=== PATIENT | female | born 1935 | race Caucasian/White ===

== ENCOUNTER 2016-07-30 08:00 | Outpatient (CLI) | payer MEDICARE, OTHER | END 2016-07-30 23:59 | DX: E78.5 Hyperlipidemia, unspecified (principal); D72.829 Elevated white blood cell count, unspecified; E03.9 Hypothyroidism, unspecified ==

== ENCOUNTER 2016-12-15 18:51 | Emergency (ER) | payer MEDICARE, OTHER ==
--- NOTE | 2016-12-15 20:25 | ED Physician Documentation ---
History of Present Illness - Stated complaint Stated Complaint: L LEG/ANKLE PX - Chief complaint Chief Complaint: Ext Problem - History obtained from History obtained from: Patient - History of Present Illness Timing: How many days ago (2) - Additonal information Additional information: 81-year-old female with history of hypertension has been taken off of her estrogen about 2 months ago. She has developed swelling in her left calf with some anterior redness starting about 2 days ago. She has the general swelling in her primary is concerned about a DVT. The patient is not had fever or chills she does have some pain across anterior calf. She does not have pain on the posterior portion of the calf or up the posterior thigh. Review of Systems Constitutional: reports: Fatigue. denies: Fever, Chills Cardiac: denies: Chest pain / pressure Respiratory: denies: Cough GI: denies: Abdominal Pain, Nausea, Vomiting : denies: Dysuria, Frequency Neurologic: reports: Headache PD PAST MEDICAL HISTORY - Past Medical History Cardiovascular: Hypertension Other Past Medical History: hypothyroid - Past Surgical History Past Surgical History: Yes General: Appendectomy /[employer] WHISKEY: Hysterectomy HEENT: Tonsil/Adenoidectomy - Present Medications Home Medications: Ambulatory Orders Medication Instructions Recorded Confirmed Amox/Clav 875/125 [Augmentin] 1 each PO Q12H #14 tablet 12/15/16 Aspirin [Aspirin EC] 81 mg PO DAILY 12/15/16 12/15/16 Folic Acid 0.4 mg PO DAILY 12/15/16 12/15/16 Hydrochlorothiazide 12.5 mg PO DAILY 12/15/16 12/15/16 Potassium Chloride 20 meq PO DAILY 12/15/16 12/15/16 Simvastatin 20 mg PO DAILY 12/15/16 12/15/16 Simvastatin [Zocor] 20 mg PO DAILY 12/15/16 12/15/16 Telmisartan [Micardis] 40 mg PO DAILY 12/15/16 12/15/16 Threonine [l-Threonine] 100 gm PO DAILY 12/15/16 12/15/16 - Allergies Allergies/Adverse Reactions: Allergies Allergy/AdvReac Type Severity Reaction Status Date / Time lisinopril Allergy Hives Verified 12/15/16 18:57 - Social History Does the pt smoke?: No Smoking Status: Never smoker Does the pt drink ETOH?: No Does the pt have substance abuse?: No PD ED PE NORMAL - Vitals Vital signs reviewed: Yes (Hypertensive) - General General: No acute distress, Well developed/nourished - HEENT HEENT: Atraumatic, PERRL - Respiratory Respiratory: No respiratory distress - Derm Derm: Normal color, Warm and dry - Extremities Extremities: No deformity, Other (There is swelling to the left calf and there is erythema anteriorly that is tender. It blanches easily. Consistent with cellulitis. There is no pain to the posterior calf or posterior thigh and the distal neurovascular components are intact.) - Neuro Neuro: No motor deficit, No sensory deficit - Psych Psych: Normal mood, Normal affect Results - Vitals Vitals: Vital Signs - 24 hr 12/15/16 18:55 Temperature 36.4 C L Heart Rate 54 L Respiratory 18 Rate Blood Pressure 148/77 H O2 Saturation 96 Oxygen O2 Source Room air - Rads (name of study) Duplex left veins Radiology: Prelim report reviewed (Impression: Negative for deep venous thrombosis in the left lower extremity.), EMP read indepedently, See rad report PD MEDICAL DECISION MAKING - ED course Complexity details: reviewed old records, reviewed results, re-evaluated patient , considered differential, d/w patient ED course: 81-year-old female with history of hypertension has swelling in the left calf with erythema consistent with cellulitis. She herself was concerned about DVT and ultrasound is without evidence of DVT. She is administered Rocephin 1 g IM and we will place her on some Augmentin. Departure - Departure Disposition: 01 Home, Self Care Clinical Impression: Cellulitis Qualifiers: Site of cellulitis: extremity Site of cellulitis of extremity: lower extremity Laterality: left Qualified Code(s): L03.116 - Cellulitis of left lower limb Instructions: ED Infec Skin Cellulitis Follow-Up: Diane Oakley PA-C [Primary Care Provider] - Prescriptions: Amox/Clav 875/125 [Augmentin] 1 each PO Q12H #14 tablet Comments: Today there is no evidence of blood clot in the calf on the left side. There is evidence of infection in the skin. Use a warm compress to encourage circulation to the area and take the antibiotic as prescribed. Our expectations are that the redness pain and swelling resolve over this week. If your pain redness and swelling increase this is a treatment failure and recent to return to the emergency department.
[2016-12-15] MEDS ORDERED: cefTRIAXone 1 GM VIAL IM STA (20:33)
[2016-12-15] MEDS ORDERED: LIDOCAINE 1% 2 ML VIAL ONE (20:40)
[2016-12-15] MEDS ORDERED: cefTRIAXone 1 GM VIAL ONE (20:40)
--- NOTE | 2016-12-15 21:21 | Ultrasound Preliminary Report ---
Exam: US Duplex Ext Veins Left IMPRESSION: Negative for deep venous thrombosis in left lower extremity. [facility] SITE ID: [id number]
--- NOTE | 2016-12-15 21:23 | Ultrasound Report ---
EXAM: LEFT LOWER EXTREMITY VENOUS ULTRASOUND EXAM DATE: 12/15/2016 09:12 PM. CLINICAL HISTORY: Calf swelling pain . COMPARISON: None. TECHNIQUE: Real-time sonographic vascular imaging was performed by the shoe repair supervisor through the lower extremity utilizing both color-flow and Doppler spectral analysis. Multiple financial service representative static annabella ges were saved for review. FINDINGS: Common Femoral Vein (CFV): Normal. CFV-GSV Junction: Normal. Profunda Femoral Vein (PFV): Normal. Femoral Vein (FV) Prox: Normal. Femoral Vein (FV) Mid: Normal. Femoral Vein (FV) Dist: Normal. Popliteal Vein: Normal. Posterior Tibial Veins: Normal. Peroneal Veins: Normal. Other: None. IMPRESSION: Negative for deep venous thrombosis in left lower extremity. [facility] Referring Provider Line: [phone] SITE ID: [id number]
[2016-12-15 21:52] VITALS: BP 110/70
== END 2016-12-15 21:50 | disposition home or self-care (01) ==
LOC: ED 18:51
DX: L03.116 Cellulitis of left lower limb (principal); I10 Essential (primary) hypertension; Z79.82 Long term (current) use of aspirin
CPT/HCPCS: 96372; 99282; 99283

== ENCOUNTER 2017-07-14 08:27 | Outpatient (CLI) | payer MEDICARE, OTHER ==
[2017-07-14 12:48] LABS: BASOPHILS % (AUTO) 0.4 %; EOSINOPHILS # (AUTO) 0.1 10^3/uL (0.0-0.7); EOSINOPHILS % (AUTO) 1.1 %; HGB - HEMOGLOBIN 13.2 g/dL (12.0-16.0); LYMPHOCYTES # (AUTO) 1.7 10^3/uL (1.5-3.5); LYMPHOCYTES % (AUTO) 14.1 %; MEAN CORPUSCULAR HEMOGLOBIN 27.7 pg (27.0-31.0); MEAN CORPUSCULAR HGB CONC 32.4 g/dL (32.0-36.0); MEAN CORPUSCULAR VOLUME 85.5 fL (81.0-99.0); MEAN PLATELET VOLUME 9.3 fL (7.9-10.8); MONOCYTES # (AUTO) 0.8 10^3/uL (0.0-1.0); MONOCYTES % (AUTO) 6.8 %; NEUTROPHILS # (AUTO) 9.3 10^3/uL (1.5-6.6); NEUTROPHILS % (AUTO) 77.6 %; PLT - PLATELET COUNT 305 10^3/uL (130-450); RED BLOOD COUNT 4.77 10^6/uL (4.20-5.40); RED CELL DISTRIBUTION WIDTH 13.9 % (12.0-15.0); WHITE BLOOD COUNT 11.9 x10^3/uL (4.8-10.8)
[2017-07-14 13:44] LABS: ALBUMIN 4.3 g/dL (3.2-5.5); ALBUMIN/GLOBULIN RATIO 1.3 (1.0-2.2); ALKALINE PHOSPHATASE 72 IU/L (42-121); ALT ALANINE AMINOTRANSFERASE 14 IU/L (10-60); AST ASPARTATE AMINOTRANSFERASE 20 IU/L (10-42); BILIRUBIN,TOTAL 0.5 mg/dL (0.2-1.0); BUN - BLOOD UREA NITROGEN 21 mg/dL (6-20); CALCIUM 9.8 mg/dL (8.5-10.3); CARBON DIOXIDE - CO2 28 mmol/L (21-32); CHLORIDE 101 mmol/L (101-111); CHOL/HDL RATIO 3.6 (<4.4); CHOLESTEROL 157 mg/dL; CREATININE 0.7 mg/dL (0.4-1.0); GFR - MDRD 80 (>89); GLUCOSE 101 mg/dL (70-100); HDL CHOLESTEROL 44 mg/dL; LDL CHOLESTEROL,CALCULATED 87 mg/dL; SODIUM 137 mmol/L (135-145); TOTAL PROTEIN 7.5 g/dL (6.7-8.2); VLDL CHOLESTEROL 26 mg/dL
[2017-07-14 13:57] LABS: HB2 TOTAL 14.6 g/dL; HEMOGLOBIN A1C 0.62 g/dL
== END 2017-07-14 08:28 | disposition home or self-care (01) ==
LOC: LAB.WCP 08:27
PROVIDERS: ATTEND Physician Assistant Medical
DX: I10 Essential (primary) hypertension (principal); R73.01 Impaired fasting glucose; E78.5 Hyperlipidemia, unspecified; E03.9 Hypothyroidism, unspecified
CPT/HCPCS: 36415; 80053; 80061; 83036; 83721; 84443; 85025

== ENCOUNTER 2017-08-03 10:45 | Outpatient (CLI) | payer MEDICARE, OTHER | END 2017-08-03 10:46 | disposition home or self-care (01) | LOC: DI 10:45 | PROVIDERS: ATTEND Physician Assistant Medical | DX: R01.1 Cardiac murmur, unspecified (principal); I51.7 Cardiomegaly; I27.20 Pulmonary hypertension, unspecified | CPT/HCPCS: 93306 ==

== ENCOUNTER 2017-10-20 14:35 | Outpatient (CLI) | END 2017-10-20 14:36 | disposition home or self-care (01) ==

== ENCOUNTER 2018-04-10 09:09 | Outpatient (CLI) | payer MEDICARE, OTHER | END 2018-04-10 09:10 | disposition critical access hospital (66) | LOC: EMS 09:09 | PROVIDERS: ATTEND Surgery | DX: M54.5 Low back pain (principal) | CPT/HCPCS: A0425; A0427 ==

== ENCOUNTER 2018-04-10 09:42 | Emergency (ER) | payer MEDICARE, OTHER ==
[2018-04-10] MEDS ORDERED: KETOROLAC 60 MG/2 ML VIAL IVP STA (09:53)
[2018-04-10] MEDS ORDERED: DEXAMETHASONE 10 MG/ML VIAL IVP STA (09:54)
--- NOTE | 2018-04-10 09:57 | ED Physician Documentation ---
PD HPI BACK PAIN - Stated complaint Stated Complaint: BACK PX - History obtained from History obtained from: Patient, Family - History of Present Illness Timing - onset: How many weeks ago (3) Timing - duration: Weeks (3) Timing - details: Gradual onset, Still present Location: Lower Quality: Pain, Spasm, Sharp, Similar to prior episodes Associated symptoms: No: Fever, Weakness, Numbness, Incontinent of urine, Unable to urinate, Incontinent of stool Improves with: Rest, Position, Meds Worsened by: Movement Similar symptoms before: No diagnosis Recently seen: Clinic - Additional information Additional information: 83-year old female has taken a car trip with her son from [place] about 3 weeks ago and is developed some back pain. She is started with a cane when she a rrived here she subsequently moved to a walker and now into a wheelchair. She has been into see the chiropractor yesterday in an attempt to get some type of improvement. She states that when she left the office she felt somewhat improved and awoke this morning in severe pain. She states that she tossed and turned at night trying to get into a comfortable position and this morning she was unable to get out of bed. She has pain with any movement. She denies any specific injury to the area or specific onset of the pain associated with any physical movement. Review of Systems Constitutional: denies: Fever Eyes: denies: Decreased vision Ears: denies: Ear pain Nose: denies: Congestion Throat: denies: Sore throat Cardiac: denies: Chest pain / pressure, Palpitations Respiratory: denies: Dyspnea, Cough GI: denies: Abdominal Pain, Nausea, Vomiting : denies: Dysuria, Frequency Skin: denies: Rash, Lesions Musculoskeletal: reports: Back pain. denies: Neck pain Neurologic: denies: Generalized weakness, Focal weakness, Numbness PD PAST MEDICAL HISTORY - Past Medical History Cardiovascular: Hypertension - Past Surgical History Past Surgical History: Yes General: Appendectomy /[employer] AND [employer]MER [employer]: Hysterectomy HEENT: Tonsil/Adenoidectomy - Present Medications Home Medications: Ambulatory Orders Medication Instructions Recorded Confirmed Aspirin [Aspirin EC] 81 mg PO DAILY 12/15/16 04/10/18 Folic Acid 0.4 mg PO DAILY 12/15/16 04/10/18 Hydrochlorothiazide 12.5 mg PO DAILY 12/15/16 04/10/18 Potassium Chloride 20 meq PO DAILY 12/15/16 04/10/18 Simvastatin 20 mg PO DAILY 12/15/16 04/10/18 Simvastatin [Zocor] 20 mg PO DAILY 12/15/16 04/10/18 Telmisartan [Micardis] 40 mg PO DAILY 12/15/16 04/10/18 Threonine [l-Threonine] 100 gm PO DAILY 12/15/16 04/10/18 Cyclobenzaprine [Flexeril] 10 mg PO TID PRN #20 tablet 04/10/18 Oxycodone HCl/Acetaminophen 1 - 2 each PO Q6H PRN #14 tablet 04/10/18 [Percocet 5-325 mg Tablet] traMADol [Ultram] 50 mg PO Q4-6H 04/10/18 04/10/18 - Allergies Allergies/Adverse Reactions: Allergies Allergy/AdvReac Type Severity Reaction Status Date / Time lisinopril Allergy Hives Verified 12/15/16 18:57 - Social History Does the pt smoke?: No Smoking Status: Never smoker Does the pt drink ETOH?: No Does the pt have substance abuse?: No PD ED PE NORMAL - Vitals Vital signs reviewed: Yes - General General: Alert and oriented X 3, Well developed/nourished, Other (appears to be in pain with any movement. ) - HEENT HEENT: Atraumatic, PERRL, EOMI - Neck Neck: Supple, no meningeal sign - Respiratory Respiratory: No respiratory distress - Back Back: No CVA TTP, Other (There is central pain to palpation of the lower lumbar spine area and less pain to palpation of the paraspinous muscles. ) - Derm Derm: Normal color, Warm and dry, No rash - Extremities Extremities: No deformity, No edema - Neuro Neuro: Alert and oriented X 3, cold rolling supervisor 2-12 intact, No motor deficit, No sensory deficit, Normal speech Eye Opening: Spontaneous Motor: Obeys Commands Verbal: Oriented GCS Score: 15 - Psych Psych: Normal mood, Normal affect Results - Vitals Vitals: Vital Signs - 24 hr 04/10/18 04/10/18 09:43 10:30 Temperature 35.9 C L Heart Rate 51 L 47 L Respiratory 20 16 Rate Blood Pressure 164/94 H 151/67 H O2 Saturation 93 93 Oxygen O2 Source Nasal cannula Oxygen Flow Rate 1 - Labs Labs: Laboratory Tests 04/10/18 10:35 Urine Color YELLOW Urine Clarity CLEAR Urine pH 7.0 Ur Specific [place] 1.010 Urine Protein NEGATIVE Urine Glucose (UA) NEGATIVE Urine Ketones NEGATIVE Urine Occult Blood NEGATIVE Urine Nitrite NEGATIVE Urine Bilirubin NEGATIVE Urine Urobilinogen 0.2 (NORMAL) Ur Leukocyte Esterase NEGATIVE Ur Microscopic Review NOT INDICATED Urine Culture Comments NOT INDICATED - Rads (name of study) lumbar spine x-ray Radiology: Prelim report reviewed (Impression: 1. Grade 1 anterolisthesis at L4-L5 has not significantly changed.2. No fracture demonstrated by radiography. 3. Multilevel degenerative changes, greatest at the lower lumbar spine.), EMP read indepedently, See rad report PD MEDICAL DECISION MAKING - ED course Complexity details: reviewed old records, reviewed results, re-evaluated patient, considered differential, d/w patient, d/w family ED course: 83-year-old female with a history of hypertension and chronic back pain has taken a recent car trip from [place] to [facility] and she has now persistent severe pain that is progressively worsened. She has significant pain if she is moving around at all. She was seen by the chiropractor yesterday and her pain is worse this morning. On my initial evaluation my concern was for the possibility of compression fracture and repeat x-ray of her lumbar spine was undertaken which did not demonstrate any evidence of compression fracture, she does have fair bone density, but she does have anterolisthesis of L4-5. This is unchanged. She is treated here in the emergency department with dexamethasone and Toradol. This is inadequate for pain relief and she is administered Dilaudid with some improvement. She has been prescribed tramadol for the pain relief and I believe this is inadequate. She will need physical therapy and time. Departure - Departure Disposition: 01 Home, Self Care Clinical Impression: Lumbar strain Qualifiers: Encounter type: initial encounter Qualified Code(s): S39.012A - Strain of muscle, fascia and tendon of lower back, initial encounter Condition: Stable Instructions: ED Sprain Strain Lumbar, ED Spasm Back No Trauma Follow-Up: Diane Oakley PA-C [Primary Care Provider] - Prescriptions: Cyclobenzaprine [Flexeril] 10 mg PO TID PRN #20 tablet PRN Reason: Spasms Oxycodone HCl/Acetaminophen [Percocet 5-325 mg Tablet] 1 - 2 each PO Q6H PRN #14 tablet PRN Reason: pain
[2018-04-10 10:56] LABS: BILIRUBIN,URINE NEGATIVE (NEGATIVE); GLUCOSE, URINE (UA) NEGATIVE (NEGATIVE); KETONES,URINE (UA) NEGATIVE (NEGATIVE); LEUKOCYTE ESTERASE, URINE NEGATIVE (NEGATIVE); NITRITE,URINE NEGATIVE (NEGATIVE); OCCULT BLOOD,URINE NEGATIVE (NEGATIVE); PROTEIN,URINE NEGATIVE (NEGATIVE); UROBILINOGEN,URINE 0.2 (NORMAL) E.U./dL (NORMAL)
[2018-04-10 10:57] LABS: CLARITY,URINE CLEAR (CLEAR)
[2018-04-10] MEDS ORDERED: HYDROmorphone 1 MG/ML CARPUJECT IVP STA (11:19)
[2018-04-10] MEDS ORDERED: ONDANSETRON 4 MG/2 ML VIAL IVP STA (11:19)
--- NOTE | 2018-04-10 11:52 | XRAY Report ---
Reason: worsened lower lumbar pain Procedure Date: 04/10/2018 Accession Number: [id number] / [id number] Procedure: XR - Lumbar Spine 2 View CPT Code: FULL RESULT: EXAM: LUMBOSACRAL SPINE RADIOGRAPHY EXAM DATE: 04/10/2018 11:03 AM. CLINICAL HISTORY: Worsened lower lumbar pain. COMPARISONS: Lumbar spine radiographs from 03/24/2018. TECHNIQUE: 3 views. FINDINGS: Alignment: There is mild apex right curvature of the lumbar spine. There is approximately 9 mm, grade 1 anterolisthesis at L4-L5, which is not significantly changed. Partial visualization of right hip prosthesis. Bones: Five [id number] lumbar vertebral bodies are present. No acute fracture. Disks: Severe disk height loss at L5-S1 with endplate sclerosis. Mild-moderate disk height loss at L2-L3, L3-L4, and L4-L5. Facets: Severe bilateral facet degeneration at L4-L5 and L5-S1. Sacroiliac Joints: Alignment is within normal limits. Soft Tissues: The visualized bowel gas pattern is unremarkable. Faint aortic calcifications demonstrated. IMPRESSION: 1. Grade 1 anterolisthesis at L4-L5 has not significantly changed. 2. No acute fracture demonstrated by radiography. 3. Multilevel degenerative changes, greatest in the lower lumbar spine. [facility]
[2018-04-10 12:38] VITALS: BP 153/92
== END 2018-04-10 12:45 | disposition home or self-care (01) ==
LOC: EDUNIT# → ED 09:42
DX: S39.012A Strain of muscle, fascia and tendon of lower back, initial encounter (principal); X58.XXXA Exposure to other specified factors, initial encounter; M43.16 Spondylolisthesis, lumbar region; G89.29 Other chronic pain; M54.9 Dorsalgia, unspecified; I10 Essential (primary) hypertension; Z79.82 Long term (current) use of aspirin
CPT/HCPCS: 72100; 81003; 96374; 96375; 99283; 99284; J1170; 81001; 87086

== ENCOUNTER 2018-04-24 08:00 | Outpatient (CLI) | payer MEDICARE, OTHER ==
[2018-04-24 12:53] LABS: BASOPHILS # (AUTO) 0.1 10^3/uL (0.0-0.1); BASOPHILS % (AUTO) 0.4 %; EOSINOPHILS # (AUTO) 0.1 10^3/uL (0.0-0.7); EOSINOPHILS % (AUTO) 0.9 %; HGB - HEMOGLOBIN 15.1 g/dL (12.0-16.0); LYMPHOCYTES % (AUTO) 13.1 %; MEAN CORPUSCULAR HEMOGLOBIN 27.6 pg (27.0-31.0); MEAN CORPUSCULAR HGB CONC 32.7 g/dL (32.0-36.0); MEAN CORPUSCULAR VOLUME 84.4 fL (81.0-99.0); MEAN PLATELET VOLUME 9.9 fL (7.9-10.8); MONOCYTES # (AUTO) 0.7 10^3/uL (0.0-1.0); MONOCYTES % (AUTO) 4.6 %; NEUTROPHILS # (AUTO) 12.3 10^3/uL (1.5-6.6); PLT - PLATELET COUNT 318 10^3/uL (130-450); RED BLOOD COUNT 5.47 10^6/uL (4.20-5.40); RED CELL DISTRIBUTION WIDTH 14.9 % (12.0-15.0); WHITE BLOOD COUNT 15.2 x10^3/uL (4.8-10.8)
[2018-04-24 13:14] LABS: ALBUMIN 4.4 g/dL (3.2-5.5); ALBUMIN/GLOBULIN RATIO 1.3 (1.0-2.2); ALKALINE PHOSPHATASE 91 IU/L (42-121); ALT ALANINE AMINOTRANSFERASE 10 IU/L (10-60); AST ASPARTATE AMINOTRANSFERASE 19 IU/L (10-42); BILIRUBIN,TOTAL 0.4 mg/dL (0.2-1.0); BUN - BLOOD UREA NITROGEN 14 mg/dL (6-20); CALCIUM 10.3 mg/dL (8.5-10.3); CARBON DIOXIDE - CO2 30 mmol/L (21-32); CHLORIDE 102 mmol/L (101-111); CHOL/HDL RATIO 2.9 (<4.4); CHOLESTEROL 174 mg/dL; CREATININE 0.7 mg/dL (0.4-1.0); GFR - MDRD 80 (>89); GLUCOSE 100 mg/dL (70-100); HDL CHOLESTEROL 60 mg/dL; LDL CHOLESTEROL,CALCULATED 94 mg/dL; LDL/HDL RATIO 1.6 (<4.4); SODIUM 142 mmol/L (135-145); TOTAL PROTEIN 7.9 g/dL (6.7-8.2); VLDL CHOLESTEROL 20 mg/dL
== END 2018-04-24 23:59 | disposition home or self-care (01) ==
LOC: LAB.WCP 08:00
PROVIDERS: ATTEND Physician Assistant Medical
DX: E78.5 Hyperlipidemia, unspecified (principal); D72.829 Elevated white blood cell count, unspecified
CPT/HCPCS: 36415; 80053; 80061; 83721; 85025

== ENCOUNTER 2018-09-08 08:01 | Outpatient (CLI) | payer MEDICARE, OTHER ==
[2018-09-08 12:51] LABS: BASOPHILS # (AUTO) 0.1 10^3/uL (0.0-0.1); BASOPHILS % (AUTO) 0.6 %; EOSINOPHILS # (AUTO) 0.1 10^3/uL (0.0-0.7); EOSINOPHILS % (AUTO) 1.3 %; HGB - HEMOGLOBIN 13.8 g/dL (12.0-16.0); LYMPHOCYTES # (AUTO) 1.9 10^3/uL (1.5-3.5); LYMPHOCYTES % (AUTO) 15.7 %; MEAN CORPUSCULAR HEMOGLOBIN 27.8 pg (27.0-31.0); MEAN CORPUSCULAR VOLUME 86.6 fL (81.0-99.0); MEAN PLATELET VOLUME 9.7 fL (7.9-10.8); MONOCYTES # (AUTO) 0.7 10^3/uL (0.0-1.0); MONOCYTES % (AUTO) 6.1 %; NEUTROPHILS % (AUTO) 76.3 %; PLT - PLATELET COUNT 322 10^3/uL (130-450); RED BLOOD COUNT 4.97 10^6/uL (4.20-5.40); RED CELL DISTRIBUTION WIDTH 13.7 % (12.0-15.0); WHITE BLOOD COUNT 11.8 x10^3/uL (4.8-10.8)
[2018-09-08 13:36] LABS: ALBUMIN 4.1 g/dL (3.2-5.5); ALBUMIN/GLOBULIN RATIO 1.2 (1.0-2.2); ALKALINE PHOSPHATASE 75 IU/L (42-121); ALT ALANINE AMINOTRANSFERASE 10 IU/L (10-60); AST ASPARTATE AMINOTRANSFERASE 19 IU/L (10-42); BILIRUBIN,TOTAL 0.5 mg/dL (0.2-1.0); BUN - BLOOD UREA NITROGEN 19 mg/dL (6-20); CALCIUM 10.4 mg/dL (8.5-10.3); CARBON DIOXIDE - CO2 32 mmol/L (21-32); CHLORIDE 105 mmol/L (101-111); CHOL/HDL RATIO 3.9 (<4.4); CHOLESTEROL 168 mg/dL; CREATININE 0.9 mg/dL (0.4-1.0); GFR - MDRD 60 (>89); GLUCOSE 107 mg/dL (70-100); HDL CHOLESTEROL 43 mg/dL; LDL CHOLESTEROL,CALCULATED 101 mg/dL; LDL/HDL RATIO 2.3 (<4.4); SODIUM 143 mmol/L (135-145); TOTAL PROTEIN 7.5 g/dL (6.7-8.2); VLDL CHOLESTEROL 24 mg/dL
== END 2018-09-08 08:02 | disposition home or self-care (01) ==
LOC: LAB.WCP 08:01
PROVIDERS: ATTEND Physician Assistant Medical
DX: E78.5 Hyperlipidemia, unspecified (principal); E03.9 Hypothyroidism, unspecified; D72.829 Elevated white blood cell count, unspecified
CPT/HCPCS: 36415; 80053; 80061; 83721; 84443; 85025

== ENCOUNTER 2018-12-07 14:59 | Outpatient (CLI) | payer MEDICARE, OTHER ==
--- NOTE | 2018-12-08 16:30 | Mammography Report ---
Reason: SCREENING MAMMO Procedure Date: 12/07/2018 Accession Number: [id number] / [id number] Procedure: ARISTEO - Screening Mammo w/Jason CPT Code: FULL RESULT: EXAM: Screening Mammo w/Jason DATE: 12/07/2018 3:44 PM CLINICAL HISTORY: Screening encounter. TECHNIQUE: (B) - Bilateral CC and MLO views were obtained. Left laterally exaggerated CC views obtained. COMPARISON: 10/20/2017 through 06/19/2011. PARENCHYMAL PATTERN: (A) - The breast(s) demonstrate(s) scattered fibroglandular densities. FINDINGS: There are no suspicious masses, calcifications, or areas of distortion. IMPRESSION: Negative examination. BI-RADS category 1. RECOMMENDATION: (ANNUAL) - Recommend routine annual screening mammography. BI-RADS CATEGORY: (1) - Negative. STANDARD QUALIFYING STATEMENTS: 1. This examination was not reviewed with the aid of Computer-Aided Detection (CAD). 2. A negative or benign imaging report should not preclude biopsy if clinically suspicious findings are present. 3. Dense breasts may obscure an underlying neoplasm. 4. This examination was reviewed with the aid of 3D breast imaging (tomosynthesis).
== END 2018-12-07 15:00 | disposition home or self-care (01) ==
LOC: DI 14:59
DX: Z12.31 Encounter for screening mammogram for malignant neoplasm of breast (principal)
CPT/HCPCS: 77063; 77067

== ENCOUNTER 2019-03-02 09:18 | Outpatient (CLI) | payer MEDICARE, OTHER | END 2019-03-02 09:19 | disposition home or self-care (01) | LOC: RT 09:18 | PROVIDERS: ATTEND Physician Assistant Surgical | DX: Z01.810 Encounter for preprocedural cardiovascular examination (principal); M16.12 Unilateral primary osteoarthritis, left hip | CPT/HCPCS: 93005 ==

== ENCOUNTER 2019-05-20 10:20 | Outpatient (CLI) | payer MEDICARE, OTHER ==
[2019-05-20 12:10] LABS: BASOPHILS % (AUTO) 0.3 %; EOSINOPHILS # (AUTO) 0.1 10^3/uL (0.0-0.7); EOSINOPHILS % (AUTO) 0.6 %; HGB - HEMOGLOBIN 12.6 g/dL (12.0-16.0); LYMPHOCYTES # (AUTO) 1.1 10^3/uL (1.5-3.5); MEAN CORPUSCULAR VOLUME 87.3 fL (81.0-99.0); MEAN PLATELET VOLUME 10.8 fL (7.9-10.8); MONOCYTES # (AUTO) 0.8 10^3/uL (0.0-1.0); MONOCYTES % (AUTO) 5.6 %; NEUTROPHILS % (AUTO) 84.9 %; PLT - PLATELET COUNT 457 10^3/uL (130-450); RED BLOOD COUNT 4.66 10^6/uL (4.20-5.40); RED CELL DISTRIBUTION WIDTH 13.4 % (12.0-15.0); WHITE BLOOD COUNT 14.1 x10^3/uL (4.8-10.8)
[2019-05-20 12:35] LABS: ALBUMIN 3.7 g/dL (3.2-5.5); ALKALINE PHOSPHATASE 76 IU/L (42-121); ALT ALANINE AMINOTRANSFERASE < 10 IU/L (10-60); AST ASPARTATE AMINOTRANSFERASE 15 IU/L (10-42); BILIRUBIN,TOTAL 0.5 mg/dL (0.2-1.0); BUN - BLOOD UREA NITROGEN 12 mg/dL (6-20); CALCIUM 9.6 mg/dL (8.5-10.3); CARBON DIOXIDE - CO2 27 mmol/L (21-32); CHLORIDE 101 mmol/L (101-111); CHOL/HDL RATIO 3.8 (<4.4); CHOLESTEROL 161 mg/dL; CREATININE 0.6 mg/dL (0.4-1.0); GFR - MDRD 95 (>89); GLUCOSE 103 mg/dL (70-100); HDL CHOLESTEROL 42 mg/dL; LDL CHOLESTEROL,CALCULATED 100 mg/dL; LDL/HDL RATIO 2.4 (<4.4); SODIUM 138 mmol/L (135-145); TOTAL PROTEIN 7.4 g/dL (6.7-8.2); VLDL CHOLESTEROL 19 mg/dL
[2019-05-20 12:36] LABS: CRP - C-REACTIVE PROTEIN 6.3 mg/dL (0-1.0)
[2019-05-20 19:08] LABS: RHEUMATOID FACTOR NEGATIVE (Negative)
== END 2019-05-20 23:59 | disposition home or self-care (01) ==
LOC: LAB.WCP 10:20
PROVIDERS: ATTEND Family Medicine
DX: M25.50 Pain in unspecified joint (principal); E78.5 Hyperlipidemia, unspecified; D72.829 Elevated white blood cell count, unspecified
CPT/HCPCS: 36415; 80053; 80061; 83721; 84550; 85025; 85027; 85651; 86038; 86140; 86200; 86430

== ENCOUNTER 2019-10-12 14:50 | Outpatient (CLI) | payer MEDICARE, OTHER ==
[2019-10-12 18:36] LABS: BASOPHILS # (AUTO) 0.1 10^3/uL (0.0-0.1); BASOPHILS % (AUTO) 0.5 %; EOSINOPHILS # (AUTO) 0.1 10^3/uL (0.0-0.7); EOSINOPHILS % (AUTO) 0.7 %; HGB - HEMOGLOBIN 14.1 g/dL (12.0-16.0); LYMPHOCYTES # (AUTO) 2.4 10^3/uL (1.5-3.5); LYMPHOCYTES % (AUTO) 15.9 %; MEAN CORPUSCULAR HEMOGLOBIN 27.1 pg (27.0-31.0); MEAN CORPUSCULAR HGB CONC 31.3 g/dL (32.0-36.0); MEAN CORPUSCULAR VOLUME 86.4 fL (81.0-99.0); MEAN PLATELET VOLUME 11.9 fL (7.9-10.8); MONOCYTES # (AUTO) 0.9 10^3/uL (0.0-1.0); MONOCYTES % (AUTO) 5.8 %; NEUTROPHILS # (AUTO) 11.7 10^3/uL (1.5-6.6); NEUTROPHILS % (AUTO) 76.6 %; PLT - PLATELET COUNT 339 10^3/uL (130-450); RED BLOOD COUNT 5.21 10^6/uL (4.20-5.40); RED CELL DISTRIBUTION WIDTH 14.3 % (12.0-15.0); WHITE BLOOD COUNT 15.2 x10^3/uL (4.8-10.8)
== END 2019-10-12 23:59 | disposition home or self-care (01) ==
LOC: LAB.WCP 14:50
PROVIDERS: ATTEND Physician Assistant Medical
DX: E03.9 Hypothyroidism, unspecified (principal); D72.829 Elevated white blood cell count, unspecified
CPT/HCPCS: 36415; 84443; 85025

== ENCOUNTER 2020-03-09 12:09 | Day surgery (SDC) | payer MEDICARE, OTHER ==
[2020-03-09] MEDS ORDERED: MIDAZOLAM 2 MG/2 ML VIAL IVP ONE (12:10)
[2020-03-09] MEDS ORDERED: fentaNYL 250 MCG/5 ML VIAL IVP ONE (12:10)
[2020-03-09] MEDS ORDERED: LACTATED RINGERS 1,000 ML IV ONE ×2 (12:27→14:11)
[2020-03-09] MEDS ORDERED: LIDOCAINE 1% 50 ML MDV ONE (13:10)
[2020-03-09] MEDS ORDERED: IOVERSOL 320 100 ML VIAL IVP ONE ×2 (14:24→17:19)
[2020-03-09 14:55] VITALS: BP 144/74
[2020-03-09 15:15] LABS: BASOPHILS # (AUTO) 0.1 10^3/uL (0.0-0.1); BASOPHILS % (AUTO) 0.4 %; EOSINOPHILS % (AUTO) 0.1 %; HGB - HEMOGLOBIN 15.1 g/dL (12.0-16.0); LYMPHOCYTES # (AUTO) 1.5 10^3/uL (1.5-3.5); LYMPHOCYTES % (AUTO) 9.8 %; MEAN CORPUSCULAR HEMOGLOBIN 28.1 pg (27.0-31.0); MEAN CORPUSCULAR HGB CONC 32.3 g/dL (32.0-36.0); MEAN PLATELET VOLUME 10.9 fL (7.9-10.8); MONOCYTES # (AUTO) 0.7 10^3/uL (0.0-1.0); MONOCYTES % (AUTO) 4.5 %; NEUTROPHILS # (AUTO) 13.3 10^3/uL (1.5-6.6); NEUTROPHILS % (AUTO) 84.7 %; PLT - PLATELET COUNT 328 10^3/uL (130-450); RED BLOOD COUNT 5.37 10^6/uL (4.20-5.40); RED CELL DISTRIBUTION WIDTH 13.2 % (12.0-15.0); WHITE BLOOD COUNT 15.7 x10^3/uL (4.8-10.8)
[2020-03-09 15:30] LABS: ALBUMIN 4.5 g/dL (3.2-5.5); ALBUMIN/GLOBULIN RATIO 1.3 (1.0-2.2); BILIRUBIN,TOTAL 0.7 mg/dL (0.2-1.0); CALCIUM 10.3 mg/dL (8.5-10.3); CREATININE 0.9 mg/dL (0.4-1.0); TOTAL PROTEIN 7.9 g/dL (6.7-8.2)
--- NOTE | 2020-03-09 16:20 | CT Report ---
PROCEDURE: Abdomen/Pelvis W INDICATIONS: Rectosigmoid mass CONTRAST: IV CONTRAST: Optiray 320 ml: 100 PO CONTRAST: *NO PO CONTRAST TECHNIQUE: After the administration of IV and no oral contrast, 5 mm thick sections acquired from the diaphragms to the symphysis. 5 mm thick coronal and sagittal reformats were acquired. For radiation dose redu ction, the following was used: automated exposure control, adjustment of mA and/or kV according to p atient size. COMPARISON: None. FINDINGS: Image quality: Excellent. ABDOMEN: Lung bases: 13 mm subpleural nodule within the right lower lobe posterolaterally is present. Lung ba ses are otherwise clear. Heart size is normal. Solid organs: Liver and spleen are normal in size and enhancement. Gallbladder is within normal royal its Biliary system is non dilated. Pancreas enhances normally. No adrenal nodules. There is a righ t posterior interpolar renal cyst measuring 13 mm. Within the right posterior polar kidney anteriorly , there is a cortically based cyst measuring 10 mm, which demonstrates a possible central region of p unctate enhancement (series 3 image 47).. Kidneys demonstrate otherwise normal size and enhancement, without hydronephrosis. Peritoneum and bowel: There is a gas-filled diverticulum of the duodenal-jejunal junction measuring r oughly 60 mm. Bowel loops demonstrate otherwise normal wall thickness and caliber. No free fluid or air. Nodes and vessels: No retroperitoneal or mesenteric adenopathy by size criteria. Aorta and inferior vena cava are normal in size. Miscellaneous: 20 mm diameter fat containing umbilical hernia. No bowel loops within the hernia are p resent. PELVIS: Genitourinary: Bladder wall thickness is normal. Miscellaneous: No inguinal hernias or adenopathy. Bones: No suspicious bony lesions. Bilateral hip arthroplasty has been performed. No vertebral body compression fractures. IMPRESSION: 1. Indeterminate right lower lobe nodule. Initial further assessment with chest CT without contrast i s recommended. 2. Possibly enhancing small right renal lesion. Initial further assessment with ultrasound is recomme nded. Pre and postcontrast enhanced renal protocol CT may be helpful for further assessment as well. Reviewed by: Edgardo Taylor MD on 03/09/2020 4:18 PM PST Approved by: Edgardo Taylor MD on 03/09/2020 4:18 PM PST Station ID: [id number]
== END 2020-03-09 12:10 | disposition home or self-care (01) ==
LOC: SDS 12:09
PROVIDERS: ATTEND Surgery
PROC: 0DBN8ZX Excision of Sigmoid Colon, Via Natural or Artificial Opening Endoscopic, Diagnostic (ICD-10-PCS; principal; 2020-03-09 13:15)
DX: C19 Malignant neoplasm of rectosigmoid junction (principal); K64.8 Other hemorrhoids; I10 Essential (primary) hypertension
CPT/HCPCS: 36415; 45380; 74177; 80053; 82378; 85025; J3010; J7120; Q9967

== ENCOUNTER 2020-03-31 10:36 | Outpatient (CLI) | payer MEDICARE, OTHER ==
[2020-03-31] MEDS ORDERED: IOVERSOL 320 100 ML VIAL IVP ONE ×2 (10:49→11:32)
--- NOTE | 2020-03-31 16:36 | CT Report ---
PROCEDURE: CHEST W INDICATIONS: LUNG NODULE, COLON CANCER CONTRAST: IV CONTRAST: Optiray 320 ml: 80 PO CONTRAST: *NO PO CONTRAST TECHNIQUE: After the administration of intravenous contrast, 5 mm thick sections acquired from the pulmonary api shawn to the posterior costophrenic angles. 7 mm thick coronal MIP reformats were acquired. For radia tion dose reduction, the following was used: automated exposure control, adjustment of mA and/or kV according to patient size. COMPARISON: CT abdomen and pelvis dated 03/09/2020. FINDINGS: Image quality: Excellent. Lungs and pleura: 9 mm pulmonary nodule, the nodule seen on the previous CT, subpleural location, right lower lobe, annabella ge 170/4. Pleural-based nodule, minor fissure, right lung, image 147/4 and image 50/7, possibly representing a fissural lymph node. 4 mm pulmonary nodule, right lower lobe, image 215/4. 2 mm pulmonary nodule, posterior left upper lobe, image 61/4. 5 mm pulmonary nodule, left lower lobe, image 194/4. No acute air space opacities. No pleural effusions or pneumothorax. Central and peripheral airways are patent and normal in caliber. Mediastinum: Mild cardiomegaly with four-chamber enlargement. Mild coronary artery calcifications. No pericardial effusion. No mediastinal or hilar adenopathy by size criteria. Mild aneurysmal dilatati on of the ascending aorta, measuring 4.1 cm. Esophagus is normal in caliber. No hiatal hernia. Bones and chest wall: No suspicious bony lesions. No vertebral body compression fractures. No axil artur or supraclavicular adenopathy by size criteria. Thyroid gland is mildly heterogeneous. Abdomen: Visualized upper abdominal solid organs appear normal. Upper abdominal bowel loops are nor mal in caliber. IMPRESSION: 1. 5 nodular densities are seen in the lungs. For of these nodules are less than or equal to 5 mm. Th ere are of uncertain etiology. These can be evaluated on future imaging studies for change in size. T hey do not necessarily represent metastatic disease. 2. Mild four-chamber cardiomegaly, mild coronary artery calcifications. 3. Mild aneurysmal dilatation of the ascending aorta. Reviewed by: Carlos Ceja MD on 03/31/2020 4:35 PM PST Approved by: Carlos Ceja MD on 03/31/2020 4:35 PM PST Station ID: [id number]
== END 2020-03-31 10:37 | disposition home or self-care (01) ==
LOC: DI 10:36
PROVIDERS: ATTEND Surgery
DX: R91.8 Other nonspecific abnormal finding of lung field (principal); I51.7 Cardiomegaly; I25.10 Atherosclerotic heart disease of native coronary artery without angina pectoris; I71.2 Thoracic aortic aneurysm, without rupture
CPT/HCPCS: 71260; Q9967

== ENCOUNTER 2020-04-07 12:30 | Outpatient (CLI) | payer MEDICARE, OTHER ==
[2020-04-07] MEDS ORDERED: GADOBUTROL 10 MMOL/10 ML VIAL ONE (14:50)
[2020-04-07] MEDS ORDERED: GADOBUTROL 10 MMOL/10 ML VIAL IVP ONE (15:34)
--- NOTE | 2020-04-11 18:37 | MRI Report ---
PROCEDURE: Pelvis W/WO INDICATIONS: SIGMOID COLON CANCER TECHNIQUE: Coronal HASTE, sagittal T2 FSE, axial T1 FSE, axial and coronal nonbreath-hold T2 FSE. Axial dynamic VIBE during administration of contrast. Post-contrast axial and coronal VIBE/2-D FLASH with fat sat uration from the iliac crests to the symphysis. Optional diffusion weighted imaging and ADC may be p erformed. COMPARISON: CT abdomen pelvis dated 03/09/2020 FINDINGS: Image quality: Adequate, although there is artifact from bilateral hip prostheses affecting the diffu ranjit and postcontrast imaging.. Rectum: Morphology: semi-circumferential Clock face of tumor involvement: Predominantly 3-10 o'clock (posterior rectal wall) Mucinous (high T2 signal): No Craniocaudal length: Approximately 5.1 cm. Distance to anal verge: 12 cm Distance to top of sphincter complex/anorectal junction: About 7.7 cm Relationship to anterior peritoneal reflection: Starting at, and extending above the anterior perito bud reflection Tumor at or below puborectalis sling: No T staging: Depth of extramural invasion: Up to 7 mm. This is seen at the 7:00 position (right posterior) on se abigail 601 image 23. Extramural vascular invasion: No T3 tumors only: distance to mesorectal fascia (circumferential resection margin): About 1.0 cm. Pelvic organ involvement: Genitourinary: None. The uterus is surgically absent. The vaginal cuff is uninvolved. The urinary bl adder appears normal with a normal wall thickness. Pelvic sidewall (obturator internus, piriformis, ischiococcygeus muscles): None Pelvic floor (pubococcygeus, iliococcygeus, puborectalis, levator plate): None Sacrum: None Vessels (internal and external iliac arteries and veins): None Nerves (lumbosacral nerve roots): None Regional lymph nodes (mesorectal, inguinal, iliac): There are a few small presacral lymph nodes with indistinct margins, mildly heterogeneous, increased T2 signal which are not enlarged, measuring betw een 3 and 4 mm. The most superior is at the level of the S1-2 junction. IMPRESSION: 1. 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 2. Nonenlarged, but slightly suspicious presacral lymph nodes. 3. Approximately 1 cm circumferential resection margin. Reviewed by: Layla Santos MD on 04/11/2020 6:36 PM PST Approved by: Layla Santos MD on 04/11/2020 6:36 PM PST Station ID: [id number]
== END 2020-04-07 12:31 | disposition home or self-care (01) ==
LOC: DI 12:30
PROVIDERS: ATTEND Surgery
DX: D49.0 Neoplasm of unspecified behavior of digestive system (principal); I89.9 Noninfective disorder of lymphatic vessels and lymph nodes, unspecified
CPT/HCPCS: 72197

== ENCOUNTER 2020-06-01 06:06 | Day surgery (SDC) | payer MEDICARE, OTHER ==
[2020-06-01] MEDS ORDERED: LACTATED RINGERS 1,000 ML IV ONE (06:55)
[2020-06-01] MEDS ORDERED: MIDAZOLAM 2 MG/2 ML VIAL ONE ×3 (07:59→08:36)
[2020-06-01] MEDS ORDERED: fentaNYL 250 MCG/5 ML VIAL ONE (07:59)
[2020-06-01] MEDS ORDERED: LACTATED RINGERS 200 ML IV ONE (08:51)
[2020-06-01 10:14] VITALS: BP 142/86
[2020-06-01 10:56] LABS: B. PARAPERTUSSIS- RESP PCR PAN NOT DETECTED; B. PERTUSSIS- RESP PCR PANEL NOT DETECTED; C. PNEUMONIAE- RESP PCR PANEL NOT DETECTED; CORONAVIRUS 229E-RESP PCR NOT DETECTED; CORONAVIRUS HKU1-RESP PCR NOT DETECTED; CORONAVIRUS NL63-RESP PCR NOT DETECTED; CORONAVIRUS OC43-RESP PCR NOT DETECTED; HUMAN METAPNEUMOVIRUS NOT DETECTED; INFLUENZA A- RESP PCR PANEL NOT DETECTED; INFLUENZA B - RESP PCR PANEL NOT DETECTED; M. PNEUMONIAE- RESP PCR PANEL NOT DETECTED; PARAINFLUENZA VIRUS 1 NOT DETECTED; PARAINFLUENZA VIRUS 2 NOT DETECTED; PARAINFLUENZA VIRUS 3 NOT DETECTED; PARAINFLUENZA VIRUS 4 NOT DETECTED; RHINOVIRUS/ENTEROVIRUS NOT DETECTED; RSV- RESP PCR PANEL NOT DETECTED; SARS-CoV-2 -RESP PCR PANEL NOT DETECTED
== END 2020-06-01 06:07 | disposition home or self-care (01) ==
LOC: SDS 06:06
PROVIDERS: ATTEND Surgery
DX: C20 Malignant neoplasm of rectum (principal); K57.30 Diverticulosis of large intestine without perforation or abscess without bleeding; Z92.3 Personal history of irradiation; I10 Essential (primary) hypertension; Z92.21 Personal history of antineoplastic chemotherapy
CPT/HCPCS: 45381; 86850; 86900; 86901; 87631; J3010; J7120; 0202U

== ENCOUNTER 2020-06-02 06:20 | Inpatient (IN) | payer MEDICARE, OTHER ==
[2020-06-02] MEDS ORDERED: GABAPENTIN 400 MG CAPSULE ONE ×2 (06:38→07:24)
[2020-06-02] MEDS ORDERED: metroNIDAZOLE 500 MG/100 ML 500 MG/100 ML BAG ONE (06:39)
[2020-06-02] MEDS ORDERED: CELECOXIB 100 MG CAPSULE PO ONE (06:39)
[2020-06-02] MEDS ORDERED: ACETAMINOPHEN 1,000 MG/100 ML 100 ML IV ONE ×2 (06:39→07:24)
[2020-06-02] MEDS ORDERED: CIPROFLOXACIN 400 MG/200 ML 0 MG/0 ML BAG IV ONE ×2 (06:39→06:40)
[2020-06-02] MEDS ORDERED: CIPROFLOXACIN 400 MG/200 ML 400 MG/200 ML BAG IV ONE (06:40)
[2020-06-02] MEDS ORDERED: LACTATED RINGERS 1,000 ML IV ONE (06:43)
[2020-06-02] MEDS ORDERED: HEPARIN 5,000 UNIT/ML VIAL ONE (06:46)
--- NOTE | 2020-06-02 07:24 | ANESTHESIA ---
Pre-Anesthesia VS, & Labs - Diagnosis rectal cancer - Procedure laparoscopic colon resection with ostomy Vital Signs: Temp Pulse Resp BP Pulse Ox 36.5 C 77 18 134/79 H 96 06/02/20 06:44 06/02/20 06:44 06/02/20 06:44 06/02/20 06:44 06/02/20 06:44 Height: 5 ft 6 in Weight (kg): 87.2 kg Body Mass Index: 31.0 BMI Classification: Obese - NPO >8 hours - Is Patient ?: Yes - Lab Results Current Lab Results: Laboratory Tests 06/02/20 07:08: POC Whole Bld Glucose 126 H Lab results reviewed: Yes Home Medications and Allergies Aspirin [Aspirin EC] 81 mg PO DAILY 12/15/16 Folic Acid 0.4 mg PO DAILY 12/15/16 Hydrochlorothiazide 25 mg PO DAILY 12/15/16 Potassium Chloride 20 meq PO DAILY 12/15/16 Simvastatin [Zocor] 20 mg PO DAILY 12/15/16 traMADol [Ultram] 50 mg PO Q4-6H 04/10/18 Docusate Sodium 100Mg Capsule [Colace 100Mg Capsule] 100 mg PO BID 03/08/20 Levothyroxine [Synthroid] 100 mcg ORAL DAILY 03/08/20 Meloxicam [Mobic] 7.5 mg PO BID 03/08/20 Butalbital/Acetaminophen [Butalbital-Acetaminophn 50-300] 1 each PO Q6HR PRN 05/29/20 Cholecalciferol [Vitamin D3] 25 mcg PO DAILY 05/29/20 Allergies/Adverse Reactions: Allergies Allergy/AdvReac Type Severity Reaction Status Date / Time ELIZABETH Inhibitors Allergy Hives Verified 05/29/20 11:22 lisinopril Allergy Hives Verified 05/02/20 13:38 telmisartan [From Micardis] Allergy Hives Verified 05/29/20 11:22 Anes History & Medical History - Medical History Cardiovascular: reports: Hypertension Pulmonary: reports: Tuberculosis Gastrointestinal: reports: Hemorrhoids Urinary: reports: Incontinence Musculoskeletal: reports: Osteoarthritis Endocrine/Autoimmune: reports: HyPOthyroidism Skin: reports: None Smoking Status: Never smoker - Surgical History General: Appendectomy Eyes Ears Nose Throat (EENT): Cataracts, Tonsil/Adenoidectomy Urologic: Bladder surgery Gynecologic: Dilation and currettage, Hysterectomy Orthopedic: Hip replacement Exam General: Alert Dental: WNL Mallampati classification: II Thyromental Distance: greater than 6 cm Respiratory: Lungs clear Cardiovascular: Regular rate Plan Anesthesia Type: General, Transverse Abdominis Plane (TAP) Block Consent for Procedure(s) Verified and Reviewed: Yes Code Status: Attempt Resuscitation ASA classification: 3-Severe systemic disease Is this case an emergency?: No
[2020-06-02] MEDS ORDERED: ONDANSETRON 4 MG/2 ML VIAL IVP PRN ×2 (12:41→13:07)
[2020-06-02] MEDS ORDERED: ALBUTEROL NEB 2.5 MG/3 ML INH PRN (12:42)
[2020-06-02] MEDS ORDERED: IPRATROPIUM 0.2 MG/ML NEB INH PRN (12:42)
[2020-06-02] MEDS ORDERED: HYDROmorphone PCA 20MG/100ML IV PRN ×2 (12:44→15:11)
[2020-06-02] MEDS ORDERED: ONDANSETRON 4 MG/2 ML VIAL ONE (12:51)
--- NOTE | 2020-06-02 12:51 | OPERATIVE REPORT ---
Operative Report - General Admit Date: 06/02/20 Procedure Date: 06/02/20 Planned Procedure: 1. Diagnostic laparoscopy 2. Laparoscopic adhesiolysis 3. Laparoscopic ultra-low anterior resection 4. Laparoscopic splenic flexure mobilization 5. Rigid proctoscopy 6. Laparoscopic loop ileostomy 7. Tap block per anesthesia 8. Drain placement 9. Primary umbilical hernia repair Pre-Op Diagnosis: Rectal cancer; s/p neoadj chemorads (short course) Procedure Performed: 1. Diagnostic laparoscopy 2. Laparoscopic adhesiolysis 3. Laparoscopic ultra-low anterior resection 4. Laparoscopic splenic flexure mobilization 5. Rigid proctoscopy 6. Laparoscopic loop ileostomy 7. Tap block per anesthesia 8. Drain placement 9. Primary umbilical hernia repair Post Op Diagnosis: No mets; adhesions; viable mos - Procedure Note Primary Surgeon: Ashwin Secondary Surgeon: Mansoor Anesthesia Provider: Rod Anesthesia Technique: General ET tube, Local, Regional block Pathology: 1. Mid and upper rectum, rectosigmoid with inferior mesenteric amanda basin; TME intact (specimen opened on the back table to confirm) 2. Proximal donut with anvil intact 3. Distal donut 4. Umbilical hernia contents Estimated Blood Loss (mL): 100 Drain/Tube Type: Antonio drain Indications: Rectal cancer status post neoadjuvant short course of chemoradiation Findings: 1. Anterior abdominal adhesions midline at historic Pfannenstiel site from historic . 2. No tension, viable, healthy anastomosis descending coloproctostomy to lower rectum. 3. Viable loop ileostomy. 4. Umbilical hernia status post repair. 5. No extra colonic metastases. 6. Mass noted within specimen on back table 7. Anastomosis at 4cm Complications: None - Other Other Information/Narrative: Pending final report
[2020-06-02] MEDS ORDERED: NALOXONE 0.4 MG/ML VIAL IVP PRN (13:07)
[2020-06-02] MEDS ORDERED: fentaNYL 100 MCG/2 ML VIAL IVP PRN (13:07)
[2020-06-02] MEDS ORDERED: MORPHINE 2 MG/ML CARPUJECT IVP PRN (13:07)
[2020-06-02] MEDS ORDERED: ePHEDrine 50 MG/ML VIAL IVP PRN (13:07)
[2020-06-02] MEDS ORDERED: METOCLOPRAMIDE 10 MG/2 ML VIAL IVP PRN (13:07)
[2020-06-02] MEDS ORDERED: HYDROmorphone 0.5 MG/0.5 ML SYRINGE IVP PRN (13:07)
[2020-06-02] MEDS ORDERED: ATROPINE ABBOJECT 1 MG/10 ML SYRINGE IVP PRN (13:07)
--- NOTE | 2020-06-02 13:24 | ANESTHESIA POST OP EVALUATION ---
Anesthesia Post Eval - Post Anesthesia Eval Vitals: Last Vital Signs Temp 36.5 C 06/02/20 06:44 Pulse 77 06/02/20 06:44 Resp 18 06/02/20 06:44 BP 134/79 H 06/02/20 06:44 Pulse Ox 96 06/02/20 06:44 CV Function Including HR & BP: positive: Stable Pain Control: positive: Satisfactory Nausea & Vomiting: positive: Negative Mental Status: positive: Patient Participates Respiratory Status: Airway Patent Hydration Status: Satisfactory Anesthesia Complications: positive: None
[2020-06-02] MEDS: D5NS W/20 MEQ KCL 1,000 ML IV SCH (13:55)
[2020-06-02] MEDS ORDERED: LACTATED RINGERS 1,000 ML IV SCH (14:00)
[2020-06-02] MEDS: CIPROFLOXACIN 400 MG/200 ML 400 MG/200 ML BAG IV SCH (14:00)
[2020-06-02 14:27] LABS: BASOPHILS # (AUTO) 0.1 10^3/uL (0.0-0.1); BASOPHILS % (AUTO) 0.2 %; HGB - HEMOGLOBIN 13.8 g/dL (12.0-16.0); LYMPHOCYTES # (AUTO) 0.7 10^3/uL (1.5-3.5); LYMPHOCYTES % (AUTO) 3.2 %; MEAN CORPUSCULAR HEMOGLOBIN 27.7 pg (27.0-31.0); MEAN CORPUSCULAR HGB CONC 29.1 g/dL (32.0-36.0); MEAN PLATELET VOLUME 10.6 fL (7.9-10.8); MONOCYTES # (AUTO) 0.8 10^3/uL (0.0-1.0); NEUTROPHILS % (AUTO) 92.1 %; PLT - PLATELET COUNT 164 10^3/uL (130-450); RED BLOOD COUNT 4.99 10^6/uL (4.20-5.40); RED CELL DISTRIBUTION WIDTH 14.1 % (12.0-15.0); WHITE BLOOD COUNT 20.6 x10^3/uL (4.8-10.8)
[2020-06-02 14:39] LABS: ALBUMIN 3.7 g/dL (3.2-5.5); ALBUMIN/GLOBULIN RATIO 1.2 (1.0-2.2); BILIRUBIN,TOTAL 0.6 mg/dL (0.2-1.0); CALCIUM 9.1 mg/dL (8.5-10.3); CREATININE 0.7 mg/dL (0.4-1.0); MAGNESIUM 1.7 mg/dL (1.7-2.8); PHOSPHORUS 2.7 mg/dL (2.5-4.6); TOTAL PROTEIN 6.9 g/dL (6.7-8.2)
[2020-06-02 14:41] LABS: PLATELET ESTIMATE, MANUAL NORMAL (130-450,000) (NORMAL); PLATELET MORPHOLOGY NORMAL APPEARANCE (NORMAL); RBC MORPHOLOGY (MULTIPLE) NORMAL APPEARANCE (NORMAL)
[2020-06-02] MEDS: metroNIDAZOLE 500 MG/100 ML 500 MG/100 ML BAG IV SCH ×2 (15:15→20:14)
[2020-06-02] MEDS: oxyCODONE 5 MG TABLET PO PRN ×2 (16:07→20:12)
[2020-06-02] MEDS: SODIUM CHLORIDE FLUSH 0.9% 10 ML SYRINGE IVP SCH (17:07)
[2020-06-02] MEDS: ACETAMINOPHEN 1,000 MG/100 ML 100 ML IV SCH (17:42)
[2020-06-02] MEDS: methocarbamoL 500 MG TABLET PO SCH (17:45)
[2020-06-02] MEDS: METOCLOPRAMIDE 10 MG/2 ML VIAL IVP SCH (17:45)
[2020-06-02] MEDS ORDERED: KETOROLAC 30 MG/ML VIAL IVP SCH (18:00)
[2020-06-02] MEDS ORDERED: KETOROLAC 15 MG/ML VIAL IVP SCH (18:00)
[2020-06-02] MEDS: SODIUM CHLORIDE FLUSH 0.9% 10 ML SYRINGE IVP PRN (18:02)
--- NOTE | 2020-06-02 18:09 | CONSULTATION NOTE ---
Referring Provider Name of Referring Provider:: Dr. Christopher Consult Date: 06/02/20 Chief Complaint - Chief Complaint Chief Complaint: BBB on tele in OR and bradycardia History of Present Illness - Admitted From Admitted From:: Home for elective surgery - History Obtained From Records Reviewed: [facility] History obtained from: Dr. Christopher Exam Limitations: patient is sleepy after surgery and not recovered mentally - History of Present Illness HPI Comment/Other: I am being asked to see this patient for a bundle branch block seen on telemetry intraoperatively as well as bradycardia. She is a thao lady who has a moderately differentiated adenocarcinoma of the rectum. She underwent neoadjuvant chemoradiation with capecitabine and now presents for low anterior resection today. She underwent an uncomplicated resection. Intraoperatively the bundle branch block and bradycardia were noted. Since waking up in PACU, the patient is not complaining of any chest pain, diaphoresis, shortness of breath. Her main complaint is an 8 out of 10 abdominal incisional pain. With Dilaudid she now has it down to a tolerable 2 out of 10. Her past medical history regards to cardiac disease has hypertension, hyperlipidemia but she has never had a heart attack, stroke. She was evaluated preoperatively by a warehouse shipping clerk. She had a negative colonoscopy in 2002. She declined a colonoscopy in 2017. She began having anal bleeding in October 2019. Colonoscopy resulted in the diagnosis of a mass 7 cm beyond the anal verge that had invasive, moderately differentiated colonic adenocarcinoma. Based on the normal expression of the mismatch repair proteins this was unlikely to be a microsatellite unstable tumor and not associated with Michael syndrome. She progr essed to the visit with oncology were she was treated with chemoradiation. And today she had the low anterior resection. Cardiology consult was done by Kyle Frey April 04, 2020. He noted that she had a history of bradycardia. A murmur has been heard in the past and he noted the echocardiogram from July 2017 that said mild ventricular hypertrophy, a minimally sclerotic aortic valve. A stress test in 2004 was equivocal, and additional stress testing in [facility] was reassuring at that time. She is , lives by herself, carries on her own groceries. She did not have a history of rheumatic fever or scarlet fever. When he saw her in the office her EKG had sinus bradyc ardia 49 bpm with PACs. KS interval was 142. QRS was 148 and she had a left anterior fascicular block that was nonspecific with IVCD. Her QT corrected was 458 with an axis of -80. She told the warehouse shipping clerk that that abnormal EKG was not new. He offered to do a myocardial perfusion imaging and she declined. He did not feel that she had an indication for pacemaker since she was not symptomatic. It would be reasonable to consider beta-blockade in some individuals preoperatively however she already had bradycardia and conduction system disease so he did not feel he should do anything. He did not recommend changing anything for her hypertension. History - Past Medical History Cardiovascular: reports: Hypertension, Murmur (Echocardiogram done July 2017 for heart murmur showed her to have mild concentric left ventricular hypertrophy with normal systolic function and ejection fraction of 65%. The left atrium is mildly dilated. Mild pulmonary hypertension with a PASP of 37 mm.) Respiratory: reports: Tuberculosis (seen as pulm nodules on CXR 1995, s/p 6 months tx in ~1999) Neuro: reports: Headaches (chronic) Endocrine/Autoimmune: reports: HyPOthyroidism GI: reports: Hemorrhoids JOB SETTER HONING: reports: Fibroids, Other () : reports: Incontinence (and pelvic floor prolapse), Chronic bladder infection HEENT: reports: Dental implants Psych: reports: None Musculoskeletal: reports: Osteoarthritis, Chronic back pain (Intermittent that waxes and wanes. She takes an occasional Percocet for this.) Derm: reports: None, Other (right shoulder lipoma removed 11/2013) MRSA Hx?: No - Past Surgical History General: reports: Appendectomy, Colonoscopy (02/28, ) Ortho: reports: Hip replacement (right w [id number]) /JOB SETTER HONING: reports: Dilation and currettage, Hysterectomy (1979), Other (Monarc suburethral sling, AP repair May 2006) HEENT: reports: Cataracts, Tonsil/Adenoidectomy - Family & Social History Family History Comment/Other: Mother is Age 94,and had anesthetic complications, heart disease, hypertension, hyperlipidemia. Dad is deceasedAge 80 and had heart disease w acb age 70, hypertension, hyperlipidemia. Son Broderick has multiple sclerosis. Son Moises has heart disease. Maternal aunt with breast cancer Living arrangement: At home Living Situation: With spouse/s.o. Social History Notes: She never smoked. She rarely drank. 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 Her son, Pipo Nails, is their DURABLE POWER OF MIX HOUSE TENDER. - Substance History Use: Uses substance without health or social issues: NONE Abuse: Recurrent use of substance despite neg consequences: NONE Dependence: Experiences withdrawal or developed tolerances: NONE - POLST Patient has POLST: No POLST Status: Full Code Meds/Allgy - Home Medications Home Medications: Ambulatory Orders Medication Instructions Recorded Confirmed Aspirin [Aspirin EC] 81 mg PO DAILY 12/15/16 06/01/20 Folic Acid 0.4 mg PO DAILY 12/15/16 06/01/20 Hydrochlorothiazide 25 mg PO DAILY 12/15/16 06/01/20 Potassium Chloride 20 meq PO DAILY 12/15/16 06/01/20 Simvastatin [Zocor] 20 mg PO DAILY 12/15/16 06/01/20 traMADol [Ultram] 50 mg PO Q4-6H 04/10/18 06/01/20 Docusate Sodium 100Mg Capsule 100 mg PO BID 03/08/20 06/01/20 [Colace 100Mg Capsule] Levothyroxine [Synthroid] 100 mcg ORAL DAILY 03/08/20 06/01/20 Meloxicam [Mobic] 7.5 mg PO BID 03/08/20 06/01/20 Butalbital/Acetaminophen 1 each PO Q6HR PRN 05/29/20 06/01/20 [Butalbital-Acetaminophn 50-300] Cholecalciferol [Vitamin D3] 25 mcg PO DAILY 05/29/20 06/01/20 - Allergies Allergies/Adverse Reactions: Allergies Allergy/AdvReac Type Severity Reaction Status Date / Time ELIZABETH Inhibitors Allergy Hives Verified 05/29/20 11:22 lisinopril Allergy Hives Verified 05/02/20 13:38 telmisartan [From Micardis] Allergy Hives Verified 05/29/20 11:22 Review of Systems - Other Findings Other Findings: At this time, the patient is too sedated to do a complete review of systems. Exam - Vital Signs Reviewed Vital Signs: Yes Vital Signs: Vital Signs x48h Temp Pulse Pulse Resp BP BP Pulse Ox 06/02/20 18:00 58 L 19 116/82 H 97 06/02/20 17:00 48 L 20 140/56 H 98 06/02/20 16:00 48 L 19 148/66 H 98 06/02/20 15:00 50 L 14 157/61 H 96 06/02/20 14:21 36.3 C L 52 L 18 97 06/02/20 14:12 52 L 18 06/02/20 14:00 36.3 C L 45 L 14 167/76 H 96 06/02/20 13:15 36.3 C L 48 L 20 168/67 H 99 06/02/20 13:10 36.2 C L 49 L 22 172/75 H 99 06/02/20 13:05 48 L 19 169/78 H 99 06/02/20 13:00 49 L 21 176/78 H 99 06/02/20 12:55 36.2 C L 49 L 22 178/89 H 99 06/02/20 12:50 36.2 C L 52 L 20 167/85 H 98 06/02/20 12:45 55 L 16 170/84 H 97 06/02/20 12:40 60 19 165/85 H 100 06/02/20 12:35 36.3 C L 64 16 160/87 H 100 - Physical Exam General Appearance: positive: No acute distress, Lethargic Eyes Bilateral: positive: PERRL ENT: positive: Dry mucous membranes Neck: positive: No JVD. negative: Stiff neck Respiratory: positive: No respiratory distress, Rhonchi. negative: Wheezes, Rales Cardiovascular: positive: Regular rate & rhythm, Systolic murmur. negative: Gallop/S4, Friction rub Peripheral Pulses: positive: 1+ Abdomen: positive: Abnml bowel sounds (She just had her low anterior resection, no bowel sounds, belly is slightly full and distended probably with air. 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 Not new. Sinus bradycardia that is chronic, not new. Hypertension. Hypothyroid. History of positive PPD. Colon cancer, status post chemoradiation and resection as of today. Postop day 0.Hypokalemia. - Plan Plan: At this point in time, I was consulted regarding her bundle branch block pattern and bradycardia. It is reassuring to note that these are chronic and old problems already addressed by cardiology. At this time there is not much to do for this. I would just recommend close monitoring and use atropine for bradycardia if she becomes symptomatic. Cardiology is already stated she is not a candidate for pacer at this time. Check troponins for completeness sake. Today and tomorrow. Potassium is already being supplemented by surgery orders. As for her other medical problems of hypertension, hypothyroidism, remote history of possible diabetes would resume her medications when able to take p.o. DVT prophylaxis should be ongoing with Lovenox. Pulmonary hygiene with incentive spirometry and deep breathing should be encouraged to avoid atelectas is and pneumonia. - Lab Results Lab results reviewed: Yes Fish Bones: 06/02/20 14:15 06/02/20 14:15
--- NOTE | 2020-06-02 18:38 | PHARMACY PROGRESS NOTE ---
- Best Possible Medication History Admit Date and Time: 06/02/20 0620 Processed by: Nursing Medication History completed: Yes As the person ultimately responsible for medication therapy, providers are able to order a medication from an existing home medication list in [facility] via the "Reconcile Routine" prior to Confirmation of that medication by business support professional. Such practice is discouraged except when the physician, in their clinical judgment, deems that a medical need exists for a medication without regard to previous use.
[2020-06-02] MEDS: DOCUSATE SODIUM 100 MG CAPSULE PO SCH (20:11)
[2020-06-02] MEDS: PREGABALIN 100 MG CAPSULE PO SCH (20:11)
[2020-06-02] MEDS: polyethylene glycoL 3350 17 GM PACKET PO SCH (20:14)
[2020-06-02] MEDS: HEPARIN 5,000 UNIT/ML VIAL SUBQ SCH (20:17)
[2020-06-02] MEDS ORDERED: DOCUSATE SODIUM 100 MG CAPSULE PO SCH (21:00)
[2020-06-02] MEDS ORDERED: polyethylene glycoL 3350 17 GM PACKET PO SCH (21:00)
[2020-06-03] MEDS: methocarbamoL 500 MG TABLET PO SCH ×5 (00:15→23:38)
[2020-06-03] MEDS: oxyCODONE 5 MG TABLET PO PRN ×6 (00:15→23:38)
[2020-06-03] MEDS: ACETAMINOPHEN 1,000 MG/100 ML 100 ML IV SCH ×4 (00:17→18:11)
[2020-06-03] MEDS: METOCLOPRAMIDE 10 MG/2 ML VIAL IVP SCH ×5 (00:17→23:39)
[2020-06-03] MEDS: D5NS W/20 MEQ KCL 1,000 ML IV SCH ×3 (00:33→12:30)
[2020-06-03] MEDS: CIPROFLOXACIN 400 MG/200 ML 400 MG/200 ML BAG IV SCH ×2 (00:35→13:51)
[2020-06-03] MEDS: SODIUM CHLORIDE FLUSH 0.9% 10 ML SYRINGE IVP SCH ×4 (00:36→23:39)
[2020-06-03] MEDS: metroNIDAZOLE 500 MG/100 ML 500 MG/100 ML BAG IV SCH ×3 (04:14→21:21)
[2020-06-03 04:45] LABS: BASOPHILS % (AUTO) 0.1 %; EOSINOPHILS % (AUTO) 0.1 %; HGB - HEMOGLOBIN 11.2 g/dL (12.0-16.0); LYMPHOCYTES # (AUTO) 0.5 10^3/uL (1.5-3.5); LYMPHOCYTES % (AUTO) 3.8 %; MEAN CORPUSCULAR HEMOGLOBIN 27.8 pg (27.0-31.0); MEAN CORPUSCULAR HGB CONC 31.3 g/dL (32.0-36.0); MEAN CORPUSCULAR VOLUME 88.8 fL (81.0-99.0); MEAN PLATELET VOLUME 10.9 fL (7.9-10.8); MONOCYTES % (AUTO) 7.5 %; NEUTROPHILS # (AUTO) 11.8 10^3/uL (1.5-6.6); NEUTROPHILS % (AUTO) 88.1 %; PLT - PLATELET COUNT 189 10^3/uL (130-450); RED BLOOD COUNT 4.03 10^6/uL (4.20-5.40); RED CELL DISTRIBUTION WIDTH 14.3 % (12.0-15.0); WHITE BLOOD COUNT 13.4 x10^3/uL (4.8-10.8)
[2020-06-03 05:00] LABS: ALBUMIN 3.1 g/dL (3.2-5.5); ALBUMIN/GLOBULIN RATIO 1.1 (1.0-2.2); BILIRUBIN,TOTAL 0.5 mg/dL (0.2-1.0); CALCIUM 8.6 mg/dL (8.5-10.3); CREATININE 0.7 mg/dL (0.4-1.0); MAGNESIUM 1.6 mg/dL (1.7-2.8); PHOSPHORUS 2.6 mg/dL (2.5-4.6); TOTAL PROTEIN 5.8 g/dL (6.7-8.2)
[2020-06-03] MEDS: PANTOPRAZOLE 40 MG TABLET PO SCH (06:05)
[2020-06-03] MEDS: LEVOTHYROXINE 100 MCG TABLET PO SCH (06:05)
--- NOTE | 2020-06-03 07:41 | PROVIDER PROGRESS NOTE ---
Subjective - Prog Note Date Prog Note Date: 06/03/20 Prog Note Time: 07:39 - Subjective Subjective: pain of upper left thigh early this am. worse than the abd pain surgery site. pain is only with movement. no pain w palpation. Current Medications - Current Medications Current Medications: Active Medications Albuterol (Albuterol Neb 2.5 Mg/3 Ml) 2.5 mg INH Q4HR PRN PRN Reason: Wheezing Docusate Sodium (Docusate Sodium 100 Mg Capsule) 100 mg PO BID [facility] Last Admin: 06/02/20 20:11 Dose: 100 mg Documented by: Heparin Sodium (Porcine) (Heparin 5,000 Unit/Ml Vial) 5,000 unit SUBQ BID [facility] Last Admin: 06/02/20 20:17 Dose: 5,000 unit Documented by: Hydromorphone HCl (Hydromorphone Consultants Intern 20mg/100ml) 20 mg IV PRN PRN; Protocol PRN Reason: PAIN Ciprofloxacin (Cipro 400 Mg/200 Ml) 400 mg in 200 mls @ 200 mls/hr IV Q12H [facility] Last Infusion: 06/03/20 02:02 Dose: Infused Documented by: Potassium Chloride/Dextrose/Sod Cl () 1,000 mls @ 125 mls/hr IV .Q8H [facility] Last Admin: 06/03/20 00:33 Dose: 125 mls/hr Documented by: Metronidazole (Flagyl 500 Mg/100 Ml) 500 mg in 100 mls @ 100 mls/hr IV Q8H [facility] Last Infusion: 06/03/20 06:48 Dose: Infused Documented by: Acetaminophen (Ofirmev) 100 mls @ 400 mls/hr IV Q6HR [facility] Last Infusion: 06/03/20 06:24 Dose: Infused Documented by: Ipratropium [place] (Ipratropium 0.2 Mg/Ml Neb) 0.5 mg INH Q6HR PRN PRN Reason: Wheezing Levothyroxine Sodium (Levothyroxine 100 Mcg Tablet) 100 mcg PO QDAC [facility] Last Admin: 06/03/20 06:05 Dose: 100 mcg Documented by: Methocarbamol (Methocarbamol 500 Mg Tablet) 500 mg PO Q6HR [facility] Last Admin: 06/03/20 06:05 Dose: 500 mg Documented by: Metoclopramide HCl (Metoclopramide 10 Mg/2 Ml Vial) 10 mg IVP Q6HR [facility] Last Admin: 06/03/20 06:06 Dose: 10 mg Documented by: Ondansetron HCl (Ondansetron 4 Mg/2 Ml Vial) 4 mg IVP Q6HR PRN PRN Reason: Nausea / Vomiting Oxycodone HCl (Oxycodone 5 Mg Tablet) 5 mg PO Q4HR PRN PRN Reason: PAIN Last Admin: 06/03/20 04:13 Dose: 5 mg Documented by: Pantoprazole Sodium (Pantoprazole 40 Mg Tablet) 40 mg PO QDAC [facility] Last Admin: 06/03/20 06:05 Dose: 40 mg Documented by: Polyethylene Glycol (Polyethylene Glycol 3350 17 Gm Packet) 17 gm PO BID [facility] Last Admin: 06/02/20 20:14 Dose: 17 gm Documented by: Pregabalin (Pregabalin 100 Mg Capsule) 100 mg PO BID [facility] Last Admin: 06/02/20 20:11 Dose: 100 mg Documented by: Sodium Chloride (Sodium Chloride Flush 0.9% 10 Ml Syringe) 10 ml IVP 0100,09 00,1700 [facility] Last Admin: 06/03/20 00:36 Dose: 10 ml Documented by: Sodium Chloride (Sodium Chloride Flush 0.9% 10 Ml Syringe) 10 ml IVP PRN PRN PRN Reason: NEEDED PER PROVIDER ORDERS Last Admin: 06/02/20 18:02 Dose: 10 ml Documented by: Aspirin [Aspirin EC] 81 mg PO DAILY 12/15/16 Folic Acid 0.4 mg PO DAILY 12/15/16 Hydrochlorothiazide 25 mg PO DAILY 12/15/16 Potassium Chloride 20 meq PO DAILY 12/15/16 Simvastatin [Zocor] 20 mg PO DAILY 12/15/16 traMADol [Ultram] 50 mg PO Q4-6H 04/10/18 Docusate Sodium 100Mg Capsule [Colace 100Mg Capsule] 100 mg PO BID 03/08/20 Levothyroxine [Synthroid] 100 mcg ORAL DAILY 03/08/20 Meloxicam [Mobic] 7.5 mg PO BID 03/08/20 Butalbital/Acetaminophen [Butalbital-Acetaminophn 50-300] 1 each PO Q6HR PRN 05/29/20 Cholecalciferol [Vitamin D3] 25 mcg PO DAILY 05/29/20 Objective - Vital Signs/Intake & Output Reviewed Vital Signs: Yes Vital Signs: Vital Signs x48h Temp Pulse Resp BP Pulse Ox 06/03/20 07:00 50 L 12 100/50 L 97 06/03/20 06:00 58 L 18 100/73 96 06/03/20 05:00 46 L 21 104/53 L 97 06/03/20 04:00 36.5 C 51 L 20 108/51 L 97 06/03/20 03:00 54 L 25 H 107/49 L 97 06/03/20 02:12 105/44 L 06/03/20 02:00 49 L 21 86/51 L 95 06/03/20 01:00 65 21 130/92 H 95 06/03/20 00:00 52 L 18 109/50 L 96 Intake & Output: Intake & Output 05/31/20 06/01/20 06/02/20 06/03/20 23:59 23:59 23:59 23:59 Intake Total 2305.542 9617.833 Output Total 1259 985 Balance -4.833 660.833 - Objective General Appearance: positive: No acute distress, Other (Sleepy elderly female, well-nourished, no distress, main complaint is that of the thigh pain.) Eyes Bilateral: positive: PERRL ENT: positive: No signs of dehydration Neck: positive: No JVD. negative: Stiff neck Respiratory: positive: No respiratory distress, Other (Slow, shallow, unlabored respiration with diminished breath sounds at the bases. Saturating 95% with 2 L). negative: Wheezes, Rales, Rhonchi Cardiovascular: positive: Regular rate & rhythm, Bradycardia, Systolic murmur. negative: Gallop/S4, Friction rub Abdomen: positive: No organomegaly, Other (Mild distention, no bowel sounds. Tolerating clears.) Rectal: positive: Other (BM today.) Skin: positive: Warm, Dry Extremities: positive: Full ROM, Pedal edema Neurologic/Psychiatric: positive: Oriented x3, CN's nml (2-12), Motor nml - Lab Results Fish Bones: 06/03/20 04:26 06/03/20 04:26 Other Labs: Lab Results x24hrs 06/03/20 06/03/20 06/02/20 Range/Units 04:26 04:26 22:52 WBC 13.4 H (4.8-10.8) x10^3/uL RBC 4.03 L (4.20-5.40) 10^6/uL Hgb 11.2 L (12.0-16.0) g/dL Hct 35.8 L (37.0-47.0) % MCV 88.8 (81.0-99.0) fL MCH 27.8 (27.0-31.0) pg MCHC 31.3 L (32.0-36.0) g/dL RDW 14.3 (12.0-15.0) % Plt Count 189 (130-450) 10^3/uL MPV 10.9 H (7.9-10.8) fL Neut # (Auto) 11.8 H (1.5-6.6) 10^3/uL Lymph # (Auto) 0.5 L (1.5-3.5) 10^3/uL [place] # (Auto) 1.0 (0.0-1.0) 10^3/uL Eos # (Auto) 0.0 (0.0-0.7) 10^3/uL Baso # (Auto) 0.0 (0.0-0.1) 10^3/uL Absolute Nucleated RBC 0.00 x10^3/uL Nucleated RBC % 0.0 /100WBC Manual Slide Review Platelet Estimate (NORMAL) Platelet Morphology (NORMAL) RBC Morph Micro Appear (NORMAL) Sodium 139 (135-145) mmol/L Potassium 3.1 L (3.5-5.0) mmol/L Chloride 105 (101-111) mmol/L Carbon Dioxide 25 (21-32) mmol/L Anion Gap 9.0 (6-13) BUN 8 (6-20) mg/dL Creatinine 0.7 (0.4-1.0) mg/dL Estimated GFR (MDRD) 80 L (>89) Glucose 112 H (70-100) mg/dL POC Whole Bld Glucose 182 H (70 - 100) mg/dL Calcium 8.6 (8.5-10.3) mg/dL Phosphorus 2.6 (2.5-4.6) mg/dL Magnesium 1.6 L (1.7-2.8) mg/dL Total Bilirubin 0.5 (0.2-1.0) mg/dL AST 19 (10-42) IU/L ALT 13 (10-60) IU/L Alkaline Phosphatase 54 (42-121) IU/L Total Protein 5.8 L (6.7-8.2) g/dL Albumin 3.1 L (3.2-5.5) g/dL Globulin 2.7 (2.1-4.2) g/dL Albumin/Globulin Ratio 1.1 (1.0-2.2) Nasal Screen MRSA (PCR) (NEGATIVE) 06/02/20 06/02/20 06/02/20 Range/Units 17:56 15:00 14:15 WBC 20.6 H (4.8-10.8) x10^3/uL RBC 4.99 (4.20-5.40) 10^6/uL Hgb 13.8 (12.0-16.0) g/dL Hct 47.4 H (37.0-47.0) % MCV 95.0 (81.0-99.0) fL MCH 27.7 (27.0-31.0) pg MCHC 29.1 L (32.0-36.0) g/dL RDW 14.1 (12.0-15.0) % Plt Count 164 (130-450) 10^3/uL MPV 10.6 (7.9-10.8) fL Neut # (Auto) 19.0 H (1.5-6.6) 10^3/uL Lymph # (Auto) 0.7 L (1.5-3.5) 10^3/uL [place] # (Auto) 0.8 (0.0-1.0) 10^3/uL Eos # (Auto) 0.0 (0.0-0.7) 10^3/uL Baso # (Auto) 0.1 (0.0-0.1) 10^3/uL Absolute Nucleated RBC 0.00 x10^3/uL Nucleated RBC % 0.0 /100WBC Manual Slide Review Indicated Platelet Estimate NORMAL (130-450,000) (NORMAL) Platelet Morphology NORMAL APPEARANCE (NORMAL) RBC Morph Micro Appear NORMAL APPEARANCE (NORMAL) Sodium (135-145) mmol/L Potassium (3.5-5.0) mmol/L Chloride (101-111) mmol/L Carbon Dioxide (21-32) mmol/L Anion Gap (6-13) BUN (6-20) mg/dL Creatinine (0.4-1.0) mg/dL Estimated GFR (MDRD) (>89) Glucose (70-100) mg/dL POC Whole Bld Glucose 135 H (70 - 100) mg/dL Calcium (8.5-10.3) mg/dL Phosphorus (2.5-4.6) mg/dL Magnesium (1.7-2.8) mg/dL Total Bilirubin (0.2-1.0) mg/dL AST (10-42) IU/L ALT (10-60) IU/L Alkaline Phosphatase (42-121) IU/L Total Protein (6.7-8.2) g/dL Albumin (3.2-5.5) g/dL Globulin (2.1-4.2) g/dL Albumin/Globulin Ratio (1.0-2.2) Nasal Screen MRSA (PCR) NEGATIVE (NEGATIVE) 06/02/20 Range/Units 14:15 WBC (4.8-10.8) x10^3/uL RBC (4.20-5.40) 10^6/uL Hgb (12.0-16.0) g/dL Hct (37.0-47.0) % MCV (81.0-99.0) fL MCH (27.0-31.0) pg MCHC (32.0-36.0) g/dL RDW (12.0-15.0) % Plt Count (130-450) 10^3/uL MPV (7.9-10.8) fL Neut # (Auto) (1.5-6.6) 10^3/uL Lymph # (Auto) (1.5-3.5) 10^3/uL [place] # (Auto) (0.0-1.0) 10^3/uL Eos # (Auto) (0.0-0.7) 10^3/uL Baso # (Auto) (0.0-0.1) 10^3/uL Absolute Nucleated RBC x10^3/uL Nucleated RBC % /100WBC Manual Slide Review Platelet Estimate (NORMAL) Platelet Morphology (NORMAL) RBC Morph Micro Appear (NORMAL) Sodium 138 (135-145) mmol/L Potassium 2.8 L (3.5-5.0) mmol/L Chloride 104 (101-111) mmol/L Carbon Dioxide 24 (21-32) mmol/L Anion Gap 10.0 (6-13) BUN 10 (6-20) mg/dL Creatinine 0.7 (0.4-1.0) mg/dL Estimated GFR (MDRD) 80 L (>89) Glucose 128 H (70-100) mg/dL POC Whole Bld Glucose (70 - 100) mg/dL Calcium 9.1 (8.5-10.3) mg/dL Phosphorus 2.7 (2.5-4.6) mg/dL Magnesium 1.7 (1.7-2.8) mg/dL Total Bilirubin 0.6 (0.2-1.0) mg/dL AST 28 (10-42) IU/L ALT 16 (10-60) IU/L Alkaline Phosphatase 63 (42-121) IU/L Total Protein 6.9 (6.7-8.2) g/dL Albumin 3.7 (3.2-5.5) g/dL Globulin 3.2 (2.1-4.2) g/dL Albumin/Globulin Ratio 1.2 (1.0-2.2) Nasal Screen MRSA (PCR) (NEGATIVE) ABX Reporting Has patient been on IV antibiotics over the past 48 hours?: Yes Assessment/Plan - Problem List (1) Leg pain, anterior Impression: not pain w palpation and only with moving leg. no abnormality on exam .check soft tissue US but suspect it may be due to positioning in the OR Qualifiers: Laterality: left Qualified Code(s): M79.605 - Pain in left leg (2) Colon cancer Impression: [place] to be more rectal cancer and ended up with a low anterior resection after chemoradiation. Status post diagnostic laparoscopy, adhesiolysis, low anterior resection, loop ileostomy, drain placement, primary umbilical hernia repair. Postop day #1. Day #2 of cipro. encourage IC since she is hypoxic and needing 2 liters. She is not on home O2. see is she can get out of bed to chair DVT prophylaxis is SCD + heparin SQ Surgery to evaluate for transition to MedSurg when ready Qualifiers: Colon location: unspecified part of colon Qualified Code(s): C18.9 - Malignant neoplasm of colon, unspecified (3) Acute blood loss as cause of postoperative anemia Impression: not symptomatic. continue to observe, transfuse if below 7 grams. (4) HTN (hypertension) Impression: by history. she is only on HCTZ at home. For now hold that since BP is low. Qualifiers: Hypertension type: essential hypertension Qualified Code(s): I10 - Esse ntial (primary) hypertension (5) Hyperglycemia Impression: mild. one note in her records (cardiology) stated she had DM but no other note stated that. Check A1c for tomorrow am. (6) Sinus bradycardia Impression: Continues to be present. Lowest heart rate has been 48 and highest heart rate has been 65. Blood pressure is low but I suspect that is due to postoperative fluid shifts. Again, this is a chronic problem for her and was present before admission. Cardiology is stated she is not a candidate for pacemaker. We will continue to monitor.
[2020-06-03] MEDS: DOCUSATE SODIUM 100 MG CAPSULE PO SCH ×2 (08:45→21:21)
[2020-06-03] MEDS: PREGABALIN 100 MG CAPSULE PO SCH ×2 (08:45→21:21)
[2020-06-03] MEDS: polyethylene glycoL 3350 17 GM PACKET PO SCH ×2 (08:47→21:21)
[2020-06-03] MEDS: HEPARIN 5,000 UNIT/ML VIAL SUBQ SCH ×2 (08:56→21:23)
--- NOTE | 2020-06-03 11:53 | Ultrasound Report ---
PROCEDURE: Ext Limited Non Vascular INDICATIONS: postop anterior L thigh pain 02/04 TECHNIQUE: Real-time scanning was performed of the area of interest overlying the left anterior thig h, with image documentation. COMPARISON: None. FINDINGS/IMPRESSION: There is no suspicious sonographic abnormality underlying the area of concern. No mass, fluid collection, or other sonographic abnormality. Imaged musculature and subcutaneous soft tissues are normal. Reviewed by: Jimy Chase DO on 06/03/2020 10:52 AM [facility] Approved by: Jimy Chase DO on 06/03/2020 10:52 AM [facility] Station ID: [id number]
--- NOTE | 2020-06-03 12:17 | PROVIDER PROGRESS NOTE ---
Subjective - Prog Note Date Prog Note Date: 06/03/20 - Subjective Subjective: complaint of left thigh bruise/ pain no nausea. tolerating clears well Objective - Vital Signs/Intake & Output Vital Signs: Vital Signs x48h Temp Pulse Resp BP Pulse Ox 06/03/20 11:00 49 L 18 115/49 L 96 06/03/20 10:00 47 L 19 119/53 L 95 06/03/20 09:00 50 L 20 108/51 L 97 06/03/20 08:00 37.2 C 54 L 16 115/57 L 99 06/03/20 07:00 50 L 12 100/50 L 97 06/03/20 06:00 58 L 18 100/73 96 06/03/20 05:00 46 L 21 104/53 L 97 Intake & Output: Intake & Output 05/31/20 06/01/20 06/02/20 06/03/20 23:59 23:59 23:59 23:59 Intake Total 2164.200 9295.833 Output Total 1259 2590 Balance -4.833 1035.833 - Objective General Appearance: positive: No acute distress, Alert Eyes Bilateral: positive: Normal inspection, PERRL Respiratory: positive: No respiratory distress Abdomen: positive: Non-tender, No distention, Other (pink stoma and with intestinal content in bag gaby thin serosanguinous) Extremities: positive: Other (left thigh pain and tenderness without apparent injury/ ecchymosis, etc no foot drop. normal sensation. normal motor/ just hurts to move) Neurologic/Psychiatric: positive: Oriented x3 - Lab Results Fish Bones: 06/03/20 04:26 06/03/20 04:26 Other Labs: Lab Results x24hrs 06/03/20 06/03/20 06/03/20 Range/Units 11:42 04:26 04:26 WBC 13.4 H (4.8-10.8) x10^3/uL RBC 4.03 L (4.20-5.40) 10^6/uL Hgb 11.2 L (12.0-16.0) g/dL Hct 35.8 L (37.0-47.0) % MCV 88.8 (81.0-99.0) fL MCH 27.8 (27.0-31.0) pg MCHC 31.3 L (32.0-36.0) g/dL RDW 14.3 (12.0-15.0) % Plt Count 189 (130-450) 10^3/uL MPV 10.9 H (7.9-10.8) fL Neut # (Auto) 11.8 H (1.5-6.6) 10^3/uL Lymph # (Auto) 0.5 L (1.5-3.5) 10^3/uL [place] # (Auto) 1.0 (0.0-1.0) 10^3/uL Eos # (Auto) 0.0 (0.0-0.7) 10^3/uL Baso # (Auto) 0.0 (0.0-0.1) 10^3/uL Absolute Nucleated RBC 0.00 x10^3/uL Nucleated RBC % 0.0 /100WBC Manual Slide Review Platelet Estimate (NORMAL) Platelet Morphology (NORMAL) RBC Morph Micro Appear (NORMAL) Sodium 139 (135-145) mmol/L Potassium 3.1 L (3.5-5.0) mmol/L Chloride 105 (101-111) mmol/L Carbon Dioxide 25 (21-32) mmol/L Anion Gap 9.0 (6-13) BUN 8 (6-20) mg/dL Creatinine 0.7 (0.4-1.0) mg/dL Estimated GFR (MDRD) 80 L (>89) Glucose 112 H (70-100) mg/dL POC Whole Bld Glucose 94 (70 - 100) mg/dL Calcium 8.6 (8.5-10.3) mg/dL Phosphorus 2.6 (2.5-4.6) mg/dL Magnesium 1.6 L (1.7-2.8) mg/dL Total Bilirubin 0.5 (0.2-1.0) mg/dL AST 19 (10-42) IU/L ALT 13 (10-60) IU/L Alkaline Phosphatase 54 (42-121) IU/L Total Protein 5.8 L (6.7-8.2) g/dL Albumin 3.1 L (3.2-5.5) g/dL Globulin 2.7 (2.1-4.2) g/dL Albumin/Globulin Ratio 1.1 (1.0-2.2) Nasal Screen MRSA (PCR) (NEGATIVE) 06/02/20 06/02/20 06/02/20 Range/Units 22:52 17:56 15:00 WBC (4.8-10.8) x10^3/uL RBC (4.20-5.40) 10^6/uL Hgb (12.0-16.0) g/dL Hct (37.0-47.0) % MCV (81.0-99.0) fL MCH (27.0-31.0) pg MCHC (32.0-36.0) g/dL RDW (12.0-15.0) % Plt Count (130-450) 10^3/uL MPV (7.9-10.8) fL Neut # (Auto) (1.5-6.6) 10^3/uL Lymph # (Auto) (1.5-3.5) 10^3/uL [place] # (Auto) (0.0-1.0) 10^3/uL Eos # (Auto) (0.0-0.7) 10^3/uL Baso # (Auto) (0.0-0.1) 10^3/uL Absolute Nucleated RBC x10^3/uL Nucleated RBC % /100WBC Manual Slide Review Platelet Estimate (NORMAL) Platelet Morphology (NORMAL) RBC Morph Micro Appear (NORMAL) Sodium (135-145) mmol/L Potassium (3.5-5.0) mmol/L Chloride (101-111) mmol/L Carbon Dioxide (21-32) mmol/L Anion Gap (6-13) BUN (6-20) mg/dL Creatinine (0.4-1.0) mg/dL Estimated GFR (MDRD) (>89) Glucose (70-100) mg/dL POC Whole Bld Glucose 182 H 135 H (70 - 100) mg/dL Calcium (8.5-10.3) mg/dL Phosphorus (2.5-4.6) mg/dL Magnesium (1.7-2.8) mg/dL Total Bilirubin (0.2-1.0) mg/dL AST (10-42) IU/L ALT (10-60) IU/L Alkaline Phosphatase (42-121) IU/L Total Protein (6.7-8.2) g/dL Albumin (3.2-5.5) g/dL Globulin (2.1-4.2) g/dL Albumin/Globulin Ratio (1.0-2.2) Nasal Screen MRSA (PCR) NEGATIVE (NEGATIVE) 06/02/20 06/02/20 Range/Units 14:15 14:15 WBC 20.6 H (4.8-10.8) x10^3/uL RBC 4.99 (4.20-5.40) 10^6/uL Hgb 13.8 (12.0-16.0) g/dL Hct 47.4 H (37.0-47.0) % MCV 95.0 (81.0-99.0) fL MCH 27.7 (27.0-31.0) pg MCHC 29.1 L (32.0-36.0) g/dL RDW 14.1 (12.0-15.0) % Plt Count 164 (130-450) 10^3/uL MPV 10.6 (7.9-10.8) fL Neut # (Auto) 19.0 H (1.5-6.6) 10^3/uL Lymph # (Auto) 0.7 L (1.5-3.5) 10^3/uL [place] # (Auto) 0.8 (0.0-1.0) 10^3/uL Eos # (Auto) 0.0 (0.0-0.7) 10^3/uL Baso # (Auto) 0.1 (0.0-0.1) 10^3/uL Absolute Nucleated RBC 0.00 x10^3/uL Nucleated RBC % 0.0 /100WBC Manual Slide Review Indicated Platelet Estimate NORMAL (130-450,000) (NORMAL) Platelet Morphology NORMAL APPEARANCE (NORMAL) RBC Morph Micro Appear NORMAL APPEARANCE (NORMAL) Sodium 138 (135-145) mmol/L Potassium 2.8 L (3.5-5.0) mmol/L Chloride 104 (101-111) mmol/L Carbon Dioxide 24 (21-32) mmol/L Anion Gap 10.0 (6-13) BUN 10 (6-20) mg/dL Creatinine 0.7 (0.4-1.0) mg/dL Estimated GFR (MDRD) 80 L (>89) Glucose 128 H (70-100) mg/dL POC Whole Bld Glucose (70 - 100) mg/dL Calcium 9.1 (8.5-10.3) mg/dL Phosphorus 2.7 (2.5-4.6) mg/dL Magnesium 1.7 (1.7-2.8) mg/dL Total Bilirubin 0.6 (0.2-1.0) mg/dL AST 28 (10-42) IU/L ALT 16 (10-60) IU/L Alkaline Phosphatase 63 (42-121) IU/L Total Protein 6.9 (6.7-8.2) g/dL Albumin 3.7 (3.2-5.5) g/dL Globulin 3.2 (2.1-4.2) g/dL Albumin/Globulin Ratio 1.2 (1.0-2.2) Nasal Screen MRSA (PCR) (NEGATIVE) Assessment/Plan - Problem List (1) Colon cancer Impression: doing very well after a low anterior resection rectal cancer. decrease ivf. dc/ cbg checks. ok to transfer to med/ surg left thigh pain. anticipate resolution over a few days. Qualifiers: Colon location: unspecified part of colon Qualified Code(s): C18.9 - Malignant neoplasm of colon, unspecified
[2020-06-03] MEDS ORDERED: POTASSIUM CHLORIDE 20 MEQ TABLET PO ONE (12:56)
[2020-06-03] MEDS: MAGNESIUM OXIDE 400 MG TABLET PO SCH ×2 (14:03→19:20)
[2020-06-03] MEDS: SODIUM CHLORIDE FLUSH 0.9% 10 ML SYRINGE IVP PRN (15:24)
[2020-06-03] MEDS ORDERED: ACETAMINOPHEN 500 MG TABLET PO PRN (18:14)
[2020-06-04] MEDS: CIPROFLOXACIN 400 MG/200 ML 400 MG/200 ML BAG IV SCH ×2 (00:52→13:09)
[2020-06-04] MEDS: metroNIDAZOLE 500 MG/100 ML 500 MG/100 ML BAG IV SCH ×3 (04:26→20:41)
[2020-06-04] MEDS: D5NS W/20 MEQ KCL 1,000 ML IV SCH (04:29)
[2020-06-04 05:57] LABS: BASOPHILS % (AUTO) 0.3 %; EOSINOPHILS # (AUTO) 0.3 10^3/uL (0.0-0.7); HGB - HEMOGLOBIN 11.6 g/dL (12.0-16.0); LYMPHOCYTES # (AUTO) 0.5 10^3/uL (1.5-3.5); LYMPHOCYTES % (AUTO) 3.6 %; MEAN CORPUSCULAR HEMOGLOBIN 28.2 pg (27.0-31.0); MEAN CORPUSCULAR HGB CONC 30.9 g/dL (32.0-36.0); MEAN PLATELET VOLUME 11.3 fL (7.9-10.8); MONOCYTES # (AUTO) 0.8 10^3/uL (0.0-1.0); MONOCYTES % (AUTO) 6.4 %; NEUTROPHILS # (AUTO) 11.1 10^3/uL (1.5-6.6); NEUTROPHILS % (AUTO) 87.1 %; PLT - PLATELET COUNT 176 10^3/uL (130-450); RED BLOOD COUNT 4.12 10^6/uL (4.20-5.40); RED CELL DISTRIBUTION WIDTH 14.6 % (12.0-15.0); WHITE BLOOD COUNT 12.8 x10^3/uL (4.8-10.8)
[2020-06-04] MEDS: methocarbamoL 500 MG TABLET PO SCH ×3 (06:04→17:57)
[2020-06-04] MEDS: LEVOTHYROXINE 100 MCG TABLET PO SCH (06:05)
[2020-06-04] MEDS: METOCLOPRAMIDE 10 MG/2 ML VIAL IVP SCH ×3 (06:05→17:57)
[2020-06-04] MEDS: PANTOPRAZOLE 40 MG TABLET PO SCH (06:05)
[2020-06-04 06:08] LABS: ALBUMIN 3.1 g/dL (3.2-5.5); ALBUMIN/GLOBULIN RATIO 1.1 (1.0-2.2); ALKALINE PHOSPHATASE 54 IU/L (42-121); ALT ALANINE AMINOTRANSFERASE < 10 IU/L (10-60); AST ASPARTATE AMINOTRANSFERASE 16 IU/L (10-42); BILIRUBIN,TOTAL 0.5 mg/dL (0.2-1.0); BUN - BLOOD UREA NITROGEN 5 mg/dL (6-20); CALCIUM 8.8 mg/dL (8.5-10.3); CARBON DIOXIDE - CO2 24 mmol/L (21-32); CHLORIDE 106 mmol/L (101-111); CREATININE 0.6 mg/dL (0.4-1.0); GLUCOSE 106 mg/dL (70-100); MAGNESIUM 1.6 mg/dL (1.7-2.8); PHOSPHORUS 1.8 mg/dL (2.5-4.6); TOTAL PROTEIN 5.9 g/dL (6.7-8.2)
[2020-06-04] MEDS: polyethylene glycoL 3350 17 GM PACKET PO SCH ×2 (10:32→20:47)
[2020-06-04] MEDS: DOCUSATE SODIUM 100 MG CAPSULE PO SCH ×2 (10:32→20:47)
[2020-06-04] MEDS: HEPARIN 5,000 UNIT/ML VIAL SUBQ SCH ×2 (10:33→20:43)
[2020-06-04] MEDS: oxyCODONE 5 MG TABLET PO PRN ×2 (10:37→15:58)
[2020-06-04] MEDS: PREGABALIN 100 MG CAPSULE PO SCH ×2 (10:37→20:41)
[2020-06-04] MEDS: SODIUM CHLORIDE FLUSH 0.9% 10 ML SYRINGE IVP SCH ×2 (10:39→15:59)
--- NOTE | 2020-06-04 11:40 | PROVIDER PROGRESS NOTE ---
Subjective - Prog Note Date Prog Note Date: 06/04/20 - Subjective Pt reports feeling: Improved (no nausea. tolerating soft diet well left thigh pain improved) Objective - Vital Signs/Intake & Output Reviewed Vital Signs: Yes Vital Signs: Vital Signs x48h Temp Pulse Resp BP Pulse Ox 06/04/20 05:00 36.5 C 57 L 16 140/52 H 93 Intake & Output: Intake & Output 06/01/20 06/02/20 06/03/20 06/04/20 23:59 23:59 23:59 23:59 Intake Total 9176.627 3518.500 1463.333 Output Total 1259 6200 1125 Balance -4.833 -476.500 338.333 - Objective General Appearance: positive: No acute distress, Alert Eyes Bilateral: positive: Normal inspection, PERRL ENT: positive: No signs of dehydration Neck: positive: No JVD Respiratory: positive: No respiratory distress Abdomen: positive: Non-tender, No distention, Other (stoma pink. gaby thin serosanguinous) - Lab Results Fish Bones: 06/04/20 05:40 06/04/20 05:40 Other Labs: Lab Results x24hrs 06/04/20 06/04/20 06/03/20 Range/Units 05:40 05:40 11:42 WBC 12.8 H (4.8-10.8) x10^3/uL RBC 4.12 L (4.20-5.40) 10^6/uL Hgb 11.6 L (12.0-16.0) g/dL Hct 37.5 (37.0-47.0) % MCV 91.0 (81.0-99.0) fL MCH 28.2 (27.0-31.0) pg MCHC 30.9 L (32.0-36.0) g/dL RDW 14.6 (12.0-15.0) % Plt Count 176 (130-450) 10^3/uL MPV 11.3 H (7.9-10.8) fL Neut # (Auto) 11.1 H (1.5-6.6) 10^3/uL Lymph # (Auto) 0.5 L (1.5-3.5) 10^3/uL [place] # (Auto) 0.8 (0.0-1.0) 10^3/uL Eos # (Auto) 0.3 (0.0-0.7) 10^3/uL Baso # (Auto) 0.0 (0.0-0.1) 10^3/uL Absolute Nucleated RBC 0.00 x10^3/uL Nucleated RBC % 0.0 /100WBC Sodium 138 (135-145) mmol/L Potassium 3.3 L (3.5-5.0) mmol/L Chloride 106 (101-111) mmol/L Carbon Dioxide 24 (21-32) mmol/L Anion Gap 8.0 (6-13) BUN 5 L (6-20) mg/dL Creatinine 0.6 (0.4-1.0) mg/dL Estimated GFR (MDRD) 95 (>89) Glucose 106 H (70-100) mg/dL POC Whole Bld Glucose 94 (70 - 100) mg/dL Calcium 8.8 (8.5-10.3) mg/dL Phosphorus 1.8 L (2.5-4.6) mg/dL Magnesium 1.6 L (1.7-2.8) mg/dL Total Bilirubin 0.5 (0.2-1.0) mg/dL AST 16 (10-42) IU/L ALT < 10 L (10-60) IU/L Alkaline Phosphatase 54 (42-121) IU/L Total Protein 5.9 L (6.7-8.2) g/dL Albumin 3.1 L (3.2-5.5) g/dL Globulin 2.8 (2.1-4.2) g/dL Albumin/Globulin Ratio 1.1 (1.0-2.2) Assessment/Plan - Problem List (1) Colon cancer Impression: doing very well. smith out this am. diet soft as tolerated Qualifiers: Colon location: unspecified part of colon Qualified Code(s): C18.9 - Malignant neoplasm of colon, unspecified
--- NOTE | 2020-06-04 12:43 | PROVIDER PROGRESS NOTE ---
Subjective - Prog Note Date Prog Note Date: 06/04/20 Prog Note Time: 12:40 - Subjective Subjective: She denies any significant abdominal pain. She feels like this is much easier than she thought it was going to be with regards to the abdominal surgery. H owever she has 2 concerns. The first of which is colostomy training. She did not get any preop training that she remembers and she is nervous that so far she is received no training in the postoperative period. The other problem is that left anterior thigh pain. It continues. She does not know why it hurts but she is afraid that when she tries to weight-bear, and use her leg, it is painful. It will prohibit her from being able to take care of herself at home easily. Otherwise she denies chest pain, shortness of breath, cough. She is relieved to have had diet advanced. The Jell-O was "nasty" and she loves the scrambled eggs and pancakes from this morning. Current Medications - Current Medications Current Medications: Active Medications Acetaminophen (Acetaminophen 500 Mg Tablet) 500 mg PO Q4HR PRN PRN Reason: Pain or Fever > 38C (100.4F) Albuterol (Albuterol Neb 2.5 Mg/3 Ml) 2.5 mg INH Q4HR PRN PRN Reason: Wheezing Docusate Sodium (Docusate Sodium 100 Mg Capsule) 100 mg PO BID [facility] Last Admin: 06/04/20 10:32 Dose: Not Given Documented by: Heparin Sodium (Porcine) (Heparin 5,000 Unit/Ml Vial) 5,000 unit SUBQ BID [facility] Last Admin: 06/04/20 10:33 Dose: 5,000 unit Documented by: Hydromorphone HCl (Hydromorphone Podiatric Surgeon 20mg/100ml) 20 mg IV PRN PRN; Protocol PRN Reason: PAIN Ciprofloxacin (Cipro 400 Mg/200 Ml) 400 mg in 200 mls @ 200 mls/hr IV Q12H [facility] Last Infusion: 06/04/20 02:03 Dose: Infused Documented by: Metronidazole (Flagyl 500 Mg/100 Ml) 500 mg in 100 mls @ 100 mls/hr IV Q8H [facility] Last Infusion: 06/04/20 05:45 Dose: Infused Documented by: Potassium Chloride/Dextrose/Sod Cl () 1,000 mls @ 50 mls/hr IV .Q20H [facility] Last Infusion: 06/04/20 05:30 Dose: 50 mls/hr Documented by: Ipratropium [place] (Ipratropium 0.2 Mg/Ml Neb) 0.5 mg INH Q6HR PRN PRN Reason: Wheezing Levothyroxine Sodium (Levothyroxine 100 Mcg Tablet) 100 mcg PO QDAC [facility] Last Admin: 06/04/20 06:05 Dose: 100 mcg Documented by: Methocarbamol (Methocarbamol 500 Mg Tablet) 500 mg PO Q6HR [facility] Last Admin: 06/04/20 10:37 Dose: 500 mg Documented by: Metoclopramide HCl (Metoclopramide 10 Mg/2 Ml Vial) 10 mg IVP Q6HR [facility] Last Admin: 06/04/20 10:36 Dose: 10 mg Documented by: Ondansetron HCl (Ondansetron 4 Mg/2 Ml Vial) 4 mg IVP Q6HR PRN PRN Reason: Nausea / Vomiting Oxycodone HCl (Oxycodone 5 Mg Tablet) 5 mg PO Q4HR PRN PRN Reason: PAIN Last Admin: 06/04/20 10:37 Dose: 5 mg Documented by: Pantoprazole Sodium (Pantoprazole 40 Mg Tablet) 40 mg PO QDAC [facility] Last Admin: 06/04/20 06:05 Dose: 40 mg Documented by: Polyethylene Glycol (Polyethylene Glycol 3350 17 Gm Packet) 17 gm PO BID [facility] Last Admin: 06/04/20 10:32 Dose: Not Given Documented by: Pregabalin (Pregabalin 100 Mg Capsule) 100 mg PO BID [facility] Last Admin: 06/04/20 10:37 Dose: 100 mg Documented by: Sodium Chloride (Sodium Chloride Flush 0.9% 10 Ml Syringe) 10 ml IVP 0100,0900,1700 [facility] Last Admin: 06/04/20 10:39 Dose: 10 ml Documented by: Sodium Chloride (Sodium Chloride Flush 0.9% 10 Ml Syringe) 10 ml IVP PRN PRN PRN Reason: NEEDED PER PROVIDER ORDERS Last Admin: 06/03/20 15:24 Dose: 10 ml Documented by: Aspirin [Aspirin EC] 81 mg PO DAILY 12/15/16 Folic Acid 0.4 mg PO DAILY 12/15/16 Hydrochlorothiazide 25 mg PO DAILY 08/20/17 Potassium Chloride 20 meq PO DAILY 12/15/16 Simvastatin [Zocor] 20 mg PO DAILY 12/15/16 traMADol [Ultram] 50 mg PO Q4-6H 04/10/18 Docusate Sodium 100Mg Capsule [Colace 100Mg Capsule] 100 mg PO BID 03/08/20 Levothyroxine [Synthroid] 100 mcg ORAL DAILY 03/08/20 Meloxicam [Mobic] 7.5 mg PO BID 03/08/20 Butalbital/Acetaminophen [Butalbital-Acetaminophn 50-300] 1 each PO Q6HR PRN 05/29/20 Cholecalciferol [Vitamin D3] 25 mcg PO DAILY 05/29/20 Objective - Vital Signs/Intake & Output Reviewed Vital Signs: Yes Vital Signs: Vital Signs x48h Temp Pulse Resp BP Pulse Ox 06/04/20 05:00 36.5 C 57 L 16 140/52 H 93 Intake & Output: Intake & Output 06/01/20 06/02/20 06/03/20 06/04/20 23:59 23:59 23:59 23:59 Intake Total 9984.795 2920.500 1463.333 Output Total 1259 6200 1125 Balance -4.833 -476.500 338.333 - Objective General Appearance: positive: Alert, Mild distress (from leg pain), Other (sleepy but wakes easily and speech patterns normal) Eyes Bilateral: positive: PERRL, EOMI ENT: positive: No signs of dehydration Neck: positive: No JVD. negative: Stiff neck Respiratory: positive: No respiratory distress. negative: Wheezes, Rales, Rhonchi Cardiovascular: positive: Regular rate & rhythm, Bradycardia (continues), Systolic murmur. negative: Gallop/S4, Friction rub Abdomen: positive: Tenderness (over the incision), Other (hyperactive bowel sounds) Skin: positive: Warm, Dry Extremities: positive: Full ROM, No pedal edema, Other (left anterior thigh to insertion of quad into knee hurts to flex, but ok to extend. no bruising, swelling). negative: Calf tenderness, Joint swelling Neurologic/Psychiatric: positive: Oriented x3, CN's nml (2-12), Motor nml - Lab Results Fish Bones: 06/04/20 05:40 06/04/20 05:40 Other Labs: Lab Results x24hrs 06/04/20 06/04/20 Range/Units 05:40 05:40 WBC 12.8 H (4.8-10.8) x10^3/uL RBC 4.12 L (4.20-5.40) 10^6/uL Hgb 11.6 L (12.0-16.0) g/dL Hct 37.5 (37.0-47.0) % MCV 91.0 (81.0-99.0) fL MCH 28.2 (27.0-31.0) pg MCHC 30.9 L (32.0-36.0) g/dL RDW 14.6 (12.0-15.0) % Plt Count 176 (130-450) 10^3/uL MPV 11.3 H (7.9-10.8) fL Neut # (Auto) 11.1 H (1.5-6.6) 10^3/uL Lymph # (Auto) 0.5 L (1.5-3.5) 10^3/uL [place] # (Auto) 0.8 (0.0-1.0) 10^3/uL Eos # (Auto) 0.3 (0.0-0.7) 10^3/uL Baso # (Auto) 0.0 (0.0-0.1) 10^3/uL Absolute Nucleated RBC 0.00 x10^3/uL Nucleated RBC % 0.0 /100WBC Sodium 138 (135-145) mmol/L Potassium 3.3 L (3.5-5.0) mmol/L Chloride 106 (101-111) mmol/L Carbon Dioxide 24 (21-32) mmol/L Anion Gap 8.0 (6-13) BUN 5 L (6-20) mg/dL Creatinine 0.6 (0.4-1.0) mg/dL Estimated GFR (MDRD) 95 (>89) Glucose 106 H (70-100) mg/dL Calcium 8.8 (8.5-10.3) mg/dL Phosphorus 1.8 L (2.5-4.6) mg/dL Magnesium 1.6 L (1.7-2.8) mg/dL Total Bilirubin 0.5 (0.2-1.0) mg/dL AST 16 (10-42) IU/L ALT < 10 L (10-60) IU/L Alkaline Phosphatase 54 (42-121) IU/L Total Protein 5.9 L (6.7-8.2) g/dL Albumin 3.1 L (3.2-5.5) g/dL Globulin 2.8 (2.1-4.2) g/dL Albumin/Globulin Ratio 1.1 (1.0-2.2) ABX Reporting Has patient been on IV antibiotics over the past 48 hours?: Yes Assessment/Plan - Problem List (1) Leg pain, anterior Impression: no pain w palpation and only with moving leg. no abnormality on exam. Soft tissue ultrasound was negative for any damage, swelling. Contraction. Plan: I have asked orthopedic surgery to just take a look at the leg to see were not missing anything Qualifiers: Laterality: left Qualified Code(s): M79.605 - Pain in left leg (2) Colon cancer Impression: [place] to be more rectal cancer and ended up with a low anterior resection after chemoradiation. Status post diagnostic laparoscopy, adhesiolysis, low anterior resection, loop ileostomy, drain placement, primary umbilical hernia repair. Postop day #2. Day #3 of cipro. Transferred from ICU to [facility] She has been able to come off her 2 L nasal cannula. She is now 95 to 99% saturated on room air. Continue to encourage incentive spirometry, is already getting out of bed, and DVT prophylaxis is SCDs with heparin subcu. We will start ostomy training today. I will also put an order for ostomy consult through the medical ambulatory clinic. Qualifiers: Colon location: unspecified part of colon Qualified Code(s): C18.9 - Malignant neoplasm of colon, unspecified (3) Acute blood loss as cause of postoperative anemia Impression: not symptomatic. continue to observe, transfuse if below 7 grams. (4) HTN (hypertension) Impression: by history. she is only on HCTZ at home. For now hold that since BP is low. Qualifiers: Hypertension type: essential hypertension Qualified Code(s): I10 - Essential (primary) hypertension (5) Hyperglycemia Impression: mild. one note in her records (cardiology) stated she had DM but no other note stated that. She tells me she does not have diabetes. Check A1c for tomorrow am. (6) Sinus bradycardia Impression: Continues to be present. Lowest heart rate has been 48 and highest heart rate has been 65. Blood pressure is 111 systolic to 140 systolic.Her bundle branch block and sinus bradycardia were present preoperatively and evaluated by cardiology. This was the reason for consult. I have spoken to general surgery who is covering today. Case discussed. He is amenable to me signing off the case. (7) Hypokalemia Supplement po
[2020-06-04 12:54] LABS: HEMOGLOBIN A1c% 5.9 % (4.27-6.07)
--- NOTE | 2020-06-04 13:56 | CONSULTATION NOTE ---
DATE OF SERVICE: 06/04/2020 Physician: Dayo Aguila MD REFERRING PHYSICIAN: Marybeth Crow MD of the Hospitalist service. CHIEF COMPLAINT: "My left leg hurts." HISTORY OF PRESENT ILLNESS: The patient is an 85-year-old woman, who underwent a low anter ior resection 2 days ago here at [facility]. During the time she had her operative pro cedure, she was in a modified lithotomy position, for the patient relates for 6 hours. Postoperative ly, she really has not been complaining much of her abdominal pain at all but has complained primaril y of left thigh pain. This has not improved at all over the last 2 days since her surgery. She jem cterizes the pain as one that occurs when she attempts to flex her hip and lift her leg off the bed. She characterizes this as a 9/10 in intensity. It does go away immediately when she puts her leg ba ck down on the bed at rest. There is no pain at rest. Denies any actual distal weakness and numbnes s in her leg at all. No history of sciatica or back problems in the past, either. She has attempted to ice her thighs, which again has not really resulted in much improvement at all. PHYSICAL EXAM: Examination today of her left hip and leg was done. Initially, she has absolutely no tenderness on palpation of her quadriceps or muscles around her thigh or calf. On closer exam thoug h, she did have some slight discomfort over her distal portion of her vascular lateralis muscle. She is able to extend her knee and has 5/5 strength of her quadriceps, again without any actual pain. H owever, as she attempts to flex her hip, this reproduces some of her anterior thigh discomfort. She is hesitant to lift her leg out of the bed and activate her hip flexors mainly because of the pain at this point. No hip esthesia noted in her anterolateral aspect of her thigh. Passively, we are able to rotate her hip without any pain as she is in bed. It is difficult for her to be relaxed but I ap peared to be able to flex and extend her hip with minimal discomfort; albeit, she is apprehensive wit h me attempting to move her hip. She has some discomfort with attempting a straight leg raise but it is not posteriorly extending down the posterolateral aspect of her leg. Again, she refers to it as being more of her anterior thigh area. ASSESSMENT: Left anterior pain of unclear etiology that does not appear to be specifically anything muscular. It does not appear to be related to any specific neurologic origin, such as peripheral ner ve compression type syndrome. The only other possibility is that she might have evidence of a high l umbar spine compression/sciatica type presentation. PLAN: I will go ahead and order a lumbar spine series of x-rays for her and we will see if her sympt oms do not continue to improve over the next several days. With continued symptoms, would consider f urther workup of her lumbar spine, including possibly either MRI scan or a CT scan. TD: 06/04/2020 13:15
[2020-06-04] MEDS: POTASSIUM CHLORIDE 20 MEQ TABLET PO SCH ×2 (14:54→17:57)
--- NOTE | 2020-06-04 15:47 | XRAY Report ---
PROCEDURE: Lumbar Spine Complete INDICATIONS: anterior left thigh radicular pain with hip flex TECHNIQUE: 5 views of the lumbar spine were acquired. COMPARISON: CT abdomen and pelvis dated 03/09/2020 FINDINGS: Bones: 5 [id number] vertebrae are present. There is anterolisthesis of L4 on L5 of approximatel y 16 mm. This is consistent with grade 2 anterolisthesis. Vertebral body heights are maintained. Ther e is at least moderate intervertebral disc space loss at L3-L4. A complete intervertebral disc space loss is noted at L4-L5 and L5-S1. There is diffuse facet arthropathy. There is endplate degenerative changes. There is mild dextrocurvature of the lumbar spine. There are multiple levels of neural trever inal stenosis. This is worse at L2-L3 bilaterally. No definite pars defects. Postsurgical changes of bilateral total hip arthroplasty incompletely evaluated. Soft tissues: Nonobstructive bowel gas pattern. Surgical drain is noted overlying the lower abdomen/p aditya. IMPRESSION: Multilevel lumbar spondylosis with intervertebral disc space loss, endplate osteophytosis, and facet arthropathy resulting in multiple levels of neural foraminal stenosis is worse at L2-L3. Grade 2 anterolisthesis of 16 mm of L4 on L5. Reviewed by: Jimy Chase DO on 06/04/2020 2:46 PM [place] Approved by: Jimy Chase DO on 06/04/2020 2:46 PM [place] Station ID: [id number]
--- NOTE | 2020-06-04 16:03 | PROVIDER PROGRESS NOTE ---
Progress Note Ostomy Education Pt is s/p LAR and ileostomy creation by Dr. Christopher on 06/02/2019. She has an ostomy consult pending but had questions regarding ostomy care. I sat with patient for 60 minutes today and provided the following education: 1. Written materials/handouts from the [facility] and [facility] provided, including an ileostomy guide, a nutrition guide, basic ostomy care, and a blockage card. She was encouraged to look these over when she feels up to it so she can ask questions if needed. 2. We discussed how the stoma was created and verbage regarding ostomies, including what a stoma is and what a bridge is. We also discussed the purpose of the bridging device and when it will come out (determined by Dr. Christopher). She understands that the stoma should be moist, red, and protruding and that it will get smaller over the next 6 months and may have less protrusion over time. 3. Education regarding nutrition and hydration were discussed, including her risk for dehydration with high amounts of liquid output and risk for blockage given that this is the small intestine. I encouraged her to drink at minimum 10-12 glasses of liquid a day, alternating water and something with electrolytes (she prefers juice). I also encouraged her to eat smaller more frequent bites to prevent blockage. 4. We discussed signs of blockage, including decreased output, increased abdominal pain and cramping, and she was instructed to return to ER if no/decreased output, nausea/vomiting, and abdominal pain/cramping. 5. We discussed ostomy supplies and that there are multiple types and appearances. DAVID carries [employer] products so we practiced with a 1 3/4" 2 piece appliance. She is interested in using a velcro closure pouch as she did not like the clip system. 6. I instructed her on when to empty the pouch (when no more than 1/2 full) and when to change the pouching system (every 3-4 days and if leaking). She emptied her pouch appropriately with minimal hands on assistance from me but will need more practice. I encouraged her to empty the pouches with nurses so that she will be confident when she goes home in performing this step. 7. We practiced with the 1 3/4" pouch and she was able to cut the wafer appropriately. We also discussed importance of protecting the skin by cutting the wafer so that no more than 1/8" skin is visible and not to cut too tight. She was able to attach the practice pouch to the wafer and clip it closed appropriately. 8. Pt requested to watch a real pouch change. I removed the current pouch with adhesive remover and showed her how to perform this step. I instructed her to wash the skin with water and pat it dry. Do not use soaps or bath wipes as they leave a residue, unless washing over the area with a wet washcloth after using the soap or wipe. Do not use skin prep as her skin is intact and it may interfere with the ability of the wafer to adhere to her skin. The back of the wafer is skin protective and there is no need to use the skin prep. I applied the wafer, warmed it into her skin with my hand, attached the pouch and clipped it closed. She verbalized understanding of all that we discussed, and understands that she may not remember all of this tomorrow. She is looking forward to meeting the ostomy nurse tomorrow for further education. Of note, I used a 2 3/4" appliance (she would benefit from a 2 1/4" appliance and will likely eventually need 1 3/4").
[2020-06-05] MEDS: methocarbamoL 500 MG TABLET PO SCH ×5 (00:34→23:54)
[2020-06-05] MEDS: BUTALB/ACETAM/CAFF 50/325/40MG TABLET PO PRN (00:34)
[2020-06-05] MEDS: METOCLOPRAMIDE 10 MG/2 ML VIAL IVP SCH ×3 (00:36→11:01)
[2020-06-05] MEDS: SODIUM CHLORIDE FLUSH 0.9% 10 ML SYRINGE IVP SCH ×3 (00:36→19:55)
[2020-06-05] MEDS: CIPROFLOXACIN 400 MG/200 ML 400 MG/200 ML BAG IV SCH ×2 (00:48→11:01)
[2020-06-05] MEDS: D5NS W/20 MEQ KCL 1,000 ML IV SCH (02:48)
[2020-06-05] MEDS: metroNIDAZOLE 500 MG/100 ML 500 MG/100 ML BAG IV SCH ×2 (04:52→12:12)
[2020-06-05 05:11] LABS: BASOPHILS % (AUTO) 0.3 %; EOSINOPHILS # (AUTO) 0.5 10^3/uL (0.0-0.7); EOSINOPHILS % (AUTO) 4.2 %; HGB - HEMOGLOBIN 11.5 g/dL (12.0-16.0); LYMPHOCYTES # (AUTO) 0.5 10^3/uL (1.5-3.5); LYMPHOCYTES % (AUTO) 4.4 %; MEAN CORPUSCULAR HEMOGLOBIN 28.5 pg (27.0-31.0); MEAN CORPUSCULAR HGB CONC 31.9 g/dL (32.0-36.0); MEAN CORPUSCULAR VOLUME 89.4 fL (81.0-99.0); MEAN PLATELET VOLUME 10.3 fL (7.9-10.8); MONOCYTES # (AUTO) 0.9 10^3/uL (0.0-1.0); MONOCYTES % (AUTO) 7.7 %; NEUTROPHILS # (AUTO) 9.8 10^3/uL (1.5-6.6); NEUTROPHILS % (AUTO) 82.8 %; PLT - PLATELET COUNT 194 10^3/uL (130-450); RED BLOOD COUNT 4.04 10^6/uL (4.20-5.40); RED CELL DISTRIBUTION WIDTH 14.6 % (12.0-15.0); WHITE BLOOD COUNT 11.8 x10^3/uL (4.8-10.8)
[2020-06-05 05:21] LABS: ALBUMIN/GLOBULIN RATIO 1.1 (1.0-2.2); BILIRUBIN,TOTAL 0.5 mg/dL (0.2-1.0); CALCIUM 9.1 mg/dL (8.5-10.3); CREATININE 0.7 mg/dL (0.4-1.0); MAGNESIUM 1.8 mg/dL (1.7-2.8); PHOSPHORUS 1.8 mg/dL (2.5-4.6); TOTAL PROTEIN 5.8 g/dL (6.7-8.2)
[2020-06-05] MEDS: LEVOTHYROXINE 100 MCG TABLET PO SCH (06:07)
[2020-06-05] MEDS: PANTOPRAZOLE 40 MG TABLET PO SCH (06:07)
[2020-06-05] MEDS: SODIUM CHLORIDE FLUSH 0.9% 10 ML SYRINGE IVP PRN (06:08)
[2020-06-05] MEDS: polyethylene glycoL 3350 17 GM PACKET PO SCH (09:04)
[2020-06-05] MEDS: DOCUSATE SODIUM 100 MG CAPSULE PO SCH ×2 (09:04→20:28)
[2020-06-05] MEDS: HEPARIN 5,000 UNIT/ML VIAL SUBQ SCH ×2 (09:15→20:30)
[2020-06-05] MEDS: POTASSIUM CHLORIDE 20 MEQ TABLET PO SCH (09:17)
[2020-06-05] MEDS: PREGABALIN 100 MG CAPSULE PO SCH ×2 (09:17→20:28)
[2020-06-05] MEDS: oxyCODONE 5 MG TABLET PO PRN (09:31)
--- NOTE | 2020-06-05 09:59 | PROVIDER PROGRESS NOTE ---
Progress Note Subjective Doing well. Tolerating oral intake. Lower extremity pain improved. Out of bed. Voiding. Pre-Op Diagnosis: Rectal cancer; s/p neoadj chemorads (short course) Procedure Performed: 1. Diagnostic laparoscopy 2. Laparoscopic adhesiolysis 3. Laparoscopic ultra-low anterior resection 4. Laparoscopic splenic flexure mobilization 5. Rigid proctoscopy 6. Laparoscopic loop ileostomy 7. Tap block per anesthesia 8. Drain placement 9. Primary umbilical hernia repair Post Op Diagnosis: No mets; adhesions; viable mos Objective Afebrile hemodynamically acceptable General Appearance: positive: No acute distress Eyes Bilateral: positive: Normal inspection ENT: positive: ENT inspection nml Neck: positive: Nml inspection Respiratory: positive: Chest non-tender, No respiratory distress, Breath sounds nml. negative: Wheezes, Rales, Rhonchi Cardiovascular: positive: Regular rate & rhythm Abdomen: positive: No distention, Other. negative: Guarding, Rebound Extremities: positive: Non-tender, Full ROM, Nml appearance Neurologic/Psychiatric: positive: Oriented x3, CN's nml (2-12) Abdomen specified: Soft, nondistended, no rebound, no guarding, stoma pink and productive with bolster in place. Drain in place. Serosanguineous. Umbilical dressing removed, clot removed. Redressed with dry sterile gauze. Impression/Plan 85-year-old female status post low anterior resection, laparoscopic, with primary coloproctostomy proximally diverted with loop ileostomy. T3 cancer with suspected lymph nodes status post neoadjuvant short course chemoradiation. Postop day #3. Doing well postoperatively. Likely takedown of ileostomy and 6 weeks to 8 weeks. Awaiting final pathology. (1) GI - GI ppx. Opiate sparring analgesia. Decreased positive resumption of bowel function. Will consider slowing agents. (2) SURGERY - Will discontinue drain tomorrow and remove ileostomy bolster. We will also order PICC line placement in anticipation of outpatient IV fluid resu scitation given risk of dehydration with loop ileostomy. We will schedule with discharge planning weekly IV fluid infusions together with weekly labs. (3) Renal/Lytes - continue IVF. Renal indices within normal limits. (4) Respiratory - O2 as necessary. Continue IS. (5) Heme - Will continue with DVT ppx. H/H stable. (6) Cardiovascular - HD acceptable. (7) Neuro - Opiate sparring analgesia. Antispasmodics with Robaxin. Neuropathic agents. (8) Immune/Infectious Disease - No indication for antibiotics. (9) PT OT to continue with mobilization. (10) Discharge Planning - schedule home care as well as outpatient IV fluid infusion.
[2020-06-05] MEDS: NEUTRA-PHOS 250 MG TABLET PO SCH ×2 (10:59→18:27)
--- NOTE | 2020-06-05 12:02 | PROVIDER PROGRESS NOTE ---
Subjective - Prog Note Date Prog Note Date: 06/05/20 Prog Note Time: 12:00 - Subjective Pt reports feeling: No change (Left anterior thigh pain is the same. Is tolerable.) Objective - Vital Signs/Intake & Output Vital Signs: Vital Signs x48h Temp Pulse Resp BP Pulse Ox 06/05/20 07:54 36.2 C L 57 L 15 154/53 H 93 06/05/20 06:41 36.7 C 54 L 18 142/58 H 95 Intake & Output: Intake & Output 06/02/20 06/03/20 06/04/20 06/05/20 23:59 23:59 23:59 23:59 Intake Total 2590.333 0382.500 2923.333 1643.333 Output Total 1259 6200 3110 1670 Balance -4.833 -476.500 -186.667 -26.667 - Lab Results Fish Bones: 06/05/20 05:01 06/05/20 05:01 Other Labs: Lab Results x24hrs 06/05/20 06/05/20 06/04/20 Range/Units 05:01 05:01 05:40 WBC 11.8 H (4.8-10.8) x10^3/uL RBC 4.04 L (4.20-5.40) 10^6/uL Hgb 11.5 L (12.0-16.0) g/dL Hct 36.1 L (37.0-47.0) % MCV 89.4 (81.0-99.0) fL MCH 28.5 (27.0-31.0) pg MCHC 31.9 L (32.0-36.0) g/dL RDW 14.6 (12.0-15.0) % Plt Count 194 (130-450) 10^3/uL MPV 10.3 (7.9-10.8) fL Neut # (Auto) 9.8 H (1.5-6.6) 10^3/uL Lymph # (Auto) 0.5 L (1.5-3.5) 10^3/uL Otoe # (Auto) 0.9 (0.0-1.0) 10^3/uL Eos # (Auto) 0.5 (0.0-0.7) 10^3/uL Baso # (Auto) 0.0 (0.0-0.1) 10^3/uL Absolute Nucleated RBC 0.00 x10^3/uL Nucleated RBC % 0.0 /100WBC Sodium 139 (135-145) mmol/L Potassium 3.6 (3.5-5.0) mmol/L Chloride 110 (101-111) mmol/L Carbon Dioxide 24 (21-32) mmol/L Anion Gap 5.0 L (6-13) BUN 6 (6-20) mg/dL Creatinine 0.7 (0.4-1.0) mg/dL Estimated GFR (MDRD) 80 L (>89) Glucose 125 H (70-100) mg/dL Estimat Average Glucose 123 H (70-100) mg/dL Hemoglobin A1c % 5.9 (4.27-6.07) % Calcium 9.1 (8.5-10.3) mg/dL Phosphorus 1.8 L (2.5-4.6) mg/dL Magnesium 1.8 (1.7-2.8) mg/dL Total Bilirubin 0.5 (0.2-1.0) mg/dL AST 13 (10-42) IU/L ALT 11 (10-60) IU/L Alkaline Phosphatase 54 (42-121) IU/L Total Protein 5.8 L (6.7-8.2) g/dL Albumin 3.0 L (3.2-5.5) g/dL Globulin 2.8 (2.1-4.2) g/dL Albumin/Globulin Ratio 1.1 (1.0-2.2) - Diagnostic Imaging Diagnostic Imaging Comments: Ostearthritis at muultiple levels of L/S spine. Moderate spinal foramena stenosos. hugo at L2-L3 level. - Other Results/Comments Other Results/Comments: EXAM: Unchanged. sitting up in chair with minimal problem Assessment/Plan - Problem List (1) Leg pain, anterior Impression: Probable degenerative spinal stenosis of lumbar spine, especially at L2-L3 level PLAN: Patient wants to see if symptoms improve over the next few weeks. Tylenol prn paion. If conditions worsen, neurosurgical or back surgeon consultation may be warranted for MRI/CT scan and possible decompression. Qualifiers: Laterality: left Qualified Code(s): M79.605 - Pain in left leg
[2020-06-05] MEDS ORDERED: METOCLOPRAMIDE 10 MG/2 ML VIAL IVP PRN (20:14)
[2020-06-06] MEDS: BUTALB/ACETAM/CAFF 50/325/40MG TABLET PO PRN ×2 (01:55→21:19)
[2020-06-06] MEDS: D5NS W/20 MEQ KCL 1,000 ML IV SCH ×2 (03:07→22:36)
[2020-06-06] MEDS: SODIUM CHLORIDE FLUSH 0.9% 10 ML SYRINGE IVP SCH ×6 (03:08→23:52)
[2020-06-06 05:40] LABS: BASOPHILS % (AUTO) 0.4 %; EOSINOPHILS # (AUTO) 0.7 10^3/uL (0.0-0.7); EOSINOPHILS % (AUTO) 5.9 %; HGB - HEMOGLOBIN 11.5 g/dL (12.0-16.0); LYMPHOCYTES # (AUTO) 0.7 10^3/uL (1.5-3.5); LYMPHOCYTES % (AUTO) 6.2 %; MEAN CORPUSCULAR HEMOGLOBIN 27.6 pg (27.0-31.0); MEAN CORPUSCULAR HGB CONC 30.9 g/dL (32.0-36.0); MEAN CORPUSCULAR VOLUME 89.4 fL (81.0-99.0); MEAN PLATELET VOLUME 10.7 fL (7.9-10.8); MONOCYTES # (AUTO) 0.8 10^3/uL (0.0-1.0); MONOCYTES % (AUTO) 6.7 %; NEUTROPHILS # (AUTO) 9.2 10^3/uL (1.5-6.6); NEUTROPHILS % (AUTO) 80.2 %; PLT - PLATELET COUNT 222 10^3/uL (130-450); RED BLOOD COUNT 4.16 10^6/uL (4.20-5.40); RED CELL DISTRIBUTION WIDTH 14.4 % (12.0-15.0); WHITE BLOOD COUNT 11.4 x10^3/uL (4.8-10.8)
[2020-06-06 05:53] LABS: ALBUMIN 2.7 g/dL (3.2-5.5); BILIRUBIN,TOTAL 0.4 mg/dL (0.2-1.0); CALCIUM 9.1 mg/dL (8.5-10.3); CREATININE 0.6 mg/dL (0.4-1.0); MAGNESIUM 1.7 mg/dL (1.7-2.8); PHOSPHORUS 2.8 mg/dL (2.5-4.6); TOTAL PROTEIN 5.5 g/dL (6.7-8.2)
[2020-06-06] MEDS: PANTOPRAZOLE 40 MG TABLET PO SCH (06:10)
[2020-06-06] MEDS: methocarbamoL 500 MG TABLET PO SCH ×4 (06:10→23:49)
[2020-06-06] MEDS: LEVOTHYROXINE 100 MCG TABLET PO SCH (06:11)
[2020-06-06] MEDS: NEUTRA-PHOS 250 MG TABLET PO SCH ×3 (09:10→17:06)
[2020-06-06] MEDS: HEPARIN 5,000 UNIT/ML VIAL SUBQ SCH ×2 (09:11→21:20)
[2020-06-06] MEDS: PREGABALIN 100 MG CAPSULE PO SCH ×2 (09:11→21:19)
--- NOTE | 2020-06-06 14:30 | PROVIDER PROGRESS NOTE ---
Progress Note Subjective Doing well. Tolerating oral intake. Lower extremity pain improved. Out of bed. Voiding. PICC placed. Pre-Op Diagnosis: Rectal cancer; s/p neoadj chemorads (short course) Procedure Performed: 1. Diagnostic laparoscopy 2. Laparoscopic adhesiolysis 3. Laparoscopic ultra-low anterior resection 4. Laparoscopic splenic flexure mobilization 5. Rigid proctoscopy 6. Laparoscopic loop ileostomy 7. Tap block per anesthesia 8. Drain placement 9. Primary umbilical hernia repair Post Op Diagnosis: No mets; adhesions; viable mos Objective Afebrile hemodynamically acceptable General Appearance: positive: No acute distress Eyes Bilateral: positive: Normal inspection ENT: positive: ENT inspection nml Neck: positive: Nml inspection Respiratory: positive: Chest non-tender, No respiratory distress, Breath sounds nml. negative: Wheezes, Rales, Rhonchi Cardiovascular: positive: Regular rate & rhythm Abdomen: positive: No distention, Other. negative: Guarding, Rebound Extremities: positive: Non-tender, Full ROM, Nml appearance Neurologic/Psychiatric: positive: Oriented x3, CN's nml (2-12) Abdomen specified: Soft, nondistended, no rebound, no guarding, stoma pink and productive with floyd lster in place. Drain in place. Serosanguineous. Umbilical dressing removed, clot removed. Redressed with dry sterile gauze. Impression/Plan 85-year-old female status post low anterior resection, laparoscopic, with primary coloproctostomy proximally diverted with loop ileostomy. T3 cancer with suspected lymph nodes status post neoadjuvant short course chemoradiation. Postop day #3. Doing well postoperatively. POD#4. Likely takedown of ileostomy and 6 weeks to 8 weeks. Awaiting final pathology. (1) GI - GI ppx. Opiate sparring analgesia. Decreased positive resumption of bowel function. Will consider slowing agents. (2) SURGERY - Will discontinue drain tomorrow and remove ileostomy bolster prior to discharge. We have PICC line in anticipation of outpatient IV fluid resuscitation given risk of dehydration with loop ileostomy. We will schedule with discharge planning weekly IV fluid infusions together with weekly labs. (3) Renal/Lytes - continue IVF. Renal indices within normal limits. (4) Respiratory - O2 as necessary. Continue IS. (5) Heme - Will continue with DVT ppx. H/H stable. (6) Cardiovascular - HD acceptable. (7) Neuro - Opiate sparring analgesia. Antispasmodics with Robaxin. Neuropathic agents. (8) Immune/Infectious Disease - No indication for antibiotics. (9) PT OT to continue with mobilization. (10) Discharge Planning - schedule home care as well as outpatient IV fluid infusion.
--- NOTE | 2020-06-06 15:13 | ANESTHESIA PROCEDURE NOTE ---
Anesth Central Line Template - Central Line Central Line Preparation: Consent Obtained, Time out completed, Ultrasound used, Sterile prep and drape Central line location: Right Basilic Central line type: PICC Single Lumen Central line catheter tip site resides: Superior vena cava (SVC) (trimmed to 40cm, insterted to hub) Central line aftercare: Secured (statlock), No complications, Bundle checklist complete, Pt tolerated well
--- NOTE | 2020-06-06 15:21 | XRAY Report ---
PROCEDURE: Chest for Line Placement INDICATIONS: picc line placement TECHNIQUE: One view of the chest was acquired. COMPARISON: 02/02/[address] chest dated 03/31/2020 FINDINGS: Surgical changes and devices: There is a right upper extremity PICC with the distal tip projecting in the lower SVC. Lungs and pleura: No pleural effusions or pneumothorax. Lungs are clear. Previously described sub- 5 mm pulmonary nodules are not visualized radiographically. Mediastinum: Mediastinal contours appear normal. Heart size is normal. Bones and chest wall: No suspicious bony lesions. Overlying soft tissues appear unremarkable. IMPRESSION: 1. Placement of right upper extremity PICC with the distal tip projecting in the lower SVC. 2. No acute cardiopulmonary abnormalities. Previously described sub-5 mm pulmonary nodules are not vi sualized radiographically. Reviewed by: Jermaine Rizzo MD on 06/06/2020 3:20 PM PST Approved by: Jermaine Rizzo MD on 06/06/2020 3:20 PM PST Station ID: [id number]
[2020-06-07] MEDS: BUTALB/ACETAM/CAFF 50/325/40MG TABLET PO PRN (02:30)
[2020-06-07] MEDS: methocarbamoL 500 MG TABLET PO SCH ×2 (06:10→12:30)
[2020-06-07] MEDS: LEVOTHYROXINE 100 MCG TABLET PO SCH (06:10)
[2020-06-07] MEDS: PANTOPRAZOLE 40 MG TABLET PO SCH (06:10)
[2020-06-07 07:42] VITALS: BP 147/61
[2020-06-07] MEDS: HEPARIN 5,000 UNIT/ML VIAL SUBQ SCH (08:27)
[2020-06-07] MEDS: NEUTRA-PHOS 250 MG TABLET PO SCH ×2 (08:29→12:30)
[2020-06-07] MEDS: PREGABALIN 100 MG CAPSULE PO SCH (08:29)
--- NOTE | 2020-06-07 10:40 | Discharge Plan ---
Discharge Plan Problem Reviewed?: Yes Disposition: 06 Home Health Service Condition: Good Prescriptions: oxyCODONE [Roxicodone] 5 mg PO Q4HR PRN #12 tab PRN Reason: Severe Pain methocarbamoL [Robaxin] 500 mg PO Q6HR PRN #50 tab PRN Reason: Spasms Neutra-Phos [K-Phos Neutral] 250 mg PO TIDWM 30 Days #90 tab Pregabalin [Lyrica] 100 mg PO BID 10 Days #20 tab Pantoprazole [Protonix] 40 mg PO QDAC #30 tab traMADol [Ultram] 50 mg PO Q4-6H PRN 10 Days #50 tab PRN Reason: Pain Diet: Soft Activity Restrictions: Wt Bearing as Tolerated Shower Restrictions: No Driving Restrictions: Yes (No driving while taking narcotics) Weight Bearing: Full Weight Instruction Topics: Ileostomy, Colon Surg Laparoscopic, Colorectal Surg Recovery, Dehydration, Hypokalemia Dc Health Concerns: 1. Hydration status, dehydration 2. Hypokalemia, electrolytes 3. Anemia 4. Bowel surgery and ileostomy management 5. Pain management Plan of Treatment: 1. Hydration status, dehydration - weekly IV fluid infusions to be calibrated to the patient's need 2. Hypokalemia, electrolytes - weekly labs and daily K-Phos to supplement 3. Anemia - monitor with weekly CBC, avoid nonsteroidals 4. Bowel surgery and ileostomy management - postoperative follow-up planned ileostomy takedown in several weeks 5. Pain management - tramadol, Robaxin, Lyrica and oxycodone only for breakthrough; take [id number] Tylenol no more than 4 g/day Additional Instructions or Follow Up instructions: DISCHARGE INSTRUCTIONS TEMPLATE: No heavy lifting, pushing, or pulling. Stairs are allowed, no strenuous/exertional activities. 5-10lbs weight carrying limit (i.e. gallon of milk) If provided, abdominal binder while out of bed and while ambulating. Call or proceed to clinic/ER for fevers, severe pain, nausea, vomiting, inability to pass flatus/stool, bleeding, wound redness/discharge, weakness, excessively loose stool/diarrhea, or for any other reasonably worrisome symptom or concern. Soft diet, no raw vegetables, avoid high fiber foods. Follow ileostomy specific instructions. May shower, no submersive bathing. Follow up in clinic in 10 days for wound check and staple removal. No driving while taking narcotic pain medications. Follow up with primary care provider and/or medical subspecialist following discharge as well. Patient not allowed to drive self today or within 24 hours of surgery. No Smoking: If you smoke, Please STOP! Call for help. Follow-up with: Diane Oakley PA-C [Primary Care Provider] -
--- NOTE | 2020-06-07 10:47 | DISCHARGE SUMMARY ---
"Discharge Summary Admit Date: 06/02/20 Discharge Date: 06/07/20 Discharging Provider: Ashwin Code Status: Attempt Resuscitation Condition at Discharge: Good Discharge Disposition: 06 Home Health Service - DIAGNOSES Admission Diagnoses: 1. 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 Arrhythmia 3. Obesity 4. Advanced age 5. Status post neoadjuvant chemoradiation 6. Postoperative leg pain Discharge Diagnoses with Status of Each Condition: 1. 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 Arrhythmia - Resolved 3. Obesity - Stable 4. Advanced age - Stable 5. Status post neoadjuvant chemoradiation - Unchanged 6. Postoperative leg pain - Resolved 7. Dehydration - Treated/Ongoing 8. Hypokalemia - Treated/Ongoing - HPI History of Present Illness: 84-year-old female that in recent endoscopy was noted for a rectosigmoid mass that returned positive for adenocarcinoma. She denies any personal history of fecal incontinence. Has no prior history of any notable abdominal surgery. Scoped by Dr. Melissa Calle and referred for colorectal evaluation. CT scan with no evidence of any extracolonic metastatic disease; of significant note is the mass is not even apparent on standard CT imaging of the abdomen pelvis. MRI revealed a T3 lesion without any lymphadenopathy while within the anatomic and surgical rectum. Neoadjuvant chemoradiation was discussed and indicated. Not a candidate for transanal minimally invasive surgery. Given the patient's age we discussed with oncology proceeding with short course radiation which was agreed to by both hematology oncology and radiation oncolo gy. She was also seen by cardiology preoperatively as well. She is here to discuss surgical options. Here for preoperative discussion for pending rectal cancer surgical resection. She was discussed of the risk and benefits. These were already discussed historically at her first visit. In the setting of neoadjuvant chemoradiation short course and her age, in anticipation of nondenominational of bowel function with pelvic anastomosis patient was advised that a temporary loop ileostomy would be indicated. We will also proceed with preoperative colonoscopy for intraoperative marking and ink tattooing. She presents today following colonoscopy and endoscopic endospot ink tattooing for definitive surgical resection, low anterior resection with planned loop ileostomy in the setting of a radiated pelvis. - CONSULTS | PROCEDURES Consultations: Hospitalist consulted for arrhythmia; Orthopedics consulted for leg pain Procedures: Procedures Performed: 1. Diagnostic laparoscopy 2. Laparoscopic adhesiolysis 3. Laparoscopic ultra-low anterior resection 4. Laparoscopic splenic flexure mobilization 5. Rigid proctoscopy 6. Laparoscopic loop ileostomy 7. Tap block per anesthesia 8. Drain placement 9. Primary umbilical hernia repair Indications: Rectal cancer status post neoadjuvant short course of chemoradiation Findings: 1. Anterior abdominal adhesions midline at historic Pfannenstiel site from historic and open appendectomy. 2. No tension, viable, healthy anastomosis descending coloproctostomy to lower rectum. 3. Viable loop ileostomy. 4. Umbilical hernia status post repair. 5. No extra colonic metastases. 6. Mass noted within specimen on back table 7. Anastomosis at 4cm 8. No extracolonic disease appreciated, no peritoneal studding, no hepatic metastases noted. - HOSPITAL COURSE Hospital Course: 85-year-old female status post above listed procedure. Minimal blood loss. No acute complaints. Her past medical history regards to cardiac disease including hypertension, hyperlipidemia but she has never had a heart attack, stroke. Developed postope rative arrhythmia for which hospitalist was consulted. She was evaluated preoperatively by a javascript front end developer. She was offered to do a myocardial perfusion imaging and she declined. He did not feel that she had an indication for pacemaker since she was not symptomatic. It would be reasonable to consider beta-blockade in some individuals preoperatively however she already had bradycardia and conduction system disease so he did not feel he should do anything. He did not recommend changing anything for her hypertension. There was no additional indication for further intervention. There is no e vidence of acute myocardial infarction. She did have some right lower extremity pain which was evaluated by orthopedics which was without any structural correlate. Likely positioning and historic ar thritic changes. This improved significantly during her hospital stay. Patient underwent operative intervention as listed in the electronic medical record. Tolerated procedure well for which there was no complication. Postoperatively the patient was managed for postoperative analgesia and resump tion of bowel function. Patient had successfully passed trial of void. Tolerated oral intake without any complication. Denied nausea denied vomiting. Was advanced for diet without any complication. Was counseled that given evidence of dehydration in the setting of proximal diverting loop ileostomy to defunctionalized her low pelvic anastomosis in the setting of historic short course neoadjuvant chemoradiation, I would recommend ongoing outpatient IV fluids and placement of PICC line to that end. She also had hypokalemia that was aggressively resuscitated and repleted daily. 85-year-old female status post low anterior resection, laparoscopic, with primary coloproctostomy proximally diverted with loop ileostomy. T3 cancer with suspected lymph nodes status post neoadjuvant short course chemoradiation. Postop day #4. Doing well postoperatively. On the day of discharge she was already tolerating oral intake, placed for PICC line, arrange for outpatient IV fluids, removed for both drain and stoma bolster, positive void, with appropriate analgesia with p.o. pain management. Thus she was stable for discharge and plan follow-up. - ALLERGIES Allergies/Adverse Reactions: Allergies Allergy/AdvReac Type Severity Reaction Status Date / Time ELIZABETH Inhibitors Allergy Hives Verified 05/29/20 11:22 lisinopril Allergy Hives Verified 05/02/20 13:38 telmisartan [From Micardis] Allergy Hives Verified 05/29/20 11:22 - MEDICATIONS Home Medications: Ambulatory Orders Medication Instructions Recorded Confirmed Aspirin [Aspirin EC] 81 mg PO DAILY 12/15/16 06/13/20 Folic Acid 0.4 mg PO DAILY 12/15/16 06/13/20 Simvastatin [Zocor] 20 mg PO DAILY 12/15/16 06/01/20 Levothyroxine [Synthroid] 100 mcg ORAL DAILY 03/08/20 06/13/20 Cholecalciferol [Vitamin D3] 25 mcg PO QDBREAKFAST 05/29/20 06/13/20 Acetaminophen [Tylenol] 500 mg PO Q4HR PRN 06/07/20 06/13/20 Neutra-Phos [K-Phos Neutral] 250 mg PO TIDWM 30 Days #90 tab 06/07/20 06/13/20 Pantoprazole [Protonix] 40 mg PO QDAC #30 tab 06/07/20 06/13/20 Pregabalin [Lyrica] 100 mg PO BID 10 Days #20 tab 06/07/20 06/13/20 methocarbamoL [Robaxin] 500 mg PO Q6HR PRN #50 tab 06/07/20 06/13/20 oxyCODONE [Roxicodone] 5 mg PO Q4HR PRN #12 tab 06/07/20 06/13/20 Hydrochlorothiazide 25 mg PO QDBREAKFAST 06/13/20 06/13/20 Meloxicam [Mobic] 7.5 mg PO BID 06/13/20 06/13/20 traMADol [Ultram] 1 tab PO Q4-6H PRN 06/13/20 06/13/20 - PHYSICAL EXAM AT DISCHARGE General Appearance: positive: No acute distress, Alert Eyes Bilateral: positive: Normal inspection, PERRL, EOMI ENT: positive: ENT inspection nml Neck: positive: Nml inspection Respiratory: positive: Chest non-tender, No respiratory distress, Breath sounds nml. negative: Wheezes, Rales, Rhonchi Cardiovascular: positive: Regular rate & rhythm Abdomen: positive: Non-tender, Other (Wounds clean dry and intact. Drain already removed. Stoma bolster removed without any complication. Stoma pink and productive of stool and gas. Stoma appliance replaced. No complication.). negative: Tenderness, Guarding, Rebound Skin: positive: Color nml Extremities: positive: Non-tender, Full ROM, Nml appearance Neurologic/Psychiatric: positive: Oriented x3, CN's nml (2-12), Motor nml, Sensation nml, Mood/affect nml - LABS Result Diagrams: 06/06/20 05:30 06/06/20 05:30 - SEPSIS Current Stage of Sepsis: Ruled out - FOLLOW UP Follow Up: Outpatient follow-up in 1 to 2 weeks for staple removal Plan of Treatment: 1. Hydration status, dehydration - weekly IV fluid infusions to be calibrated to the patient's need 2. Hypokalemia, electrolytes - weekly labs and daily K-Phos to supplement 3. Anemia - monitor with weekly CBC, avoid nonsteroidals 4. Bowel surgery and ileostomy management - postoperative follow-up planned ileostomy takedown in several weeks 5. Pain management - tramadol, Robaxin, Lyrica and oxycodone only for breakthrough; take [id number] Tylenol no more than 4 g/day Additional Instructions or Follow Up instructions: DISCHARGE INSTRUCTIONS TEMPLATE: No heavy lifting, pushing, or pulling. Stairs are allowed, no strenuous/exertional activities. 5-10lbs weight carrying limit (i.e. gallon of milk) If provided, abdominal binder while out of bed and while ambulating. Call or proceed to clinic/ER for fevers, severe pain, nausea, vomiting, inability to pass flatus/stool, bleeding, wound redness/discharge, weakness, excessively loose stool/diarrhea, or for any other reasonably worrisome symptom or concern. Soft diet, no raw vegetables, avoid high fiber foods. Follow ileostomy specific instructions. May shower, no submersive bathing. Follow up in clinic in 10 days for wound check and staple removal. No driving while taking narcotic pain medications. Follow up with primary care provider and/or medical subspecialist following discharge as well. Patient not allowed to drive self today or within 24 hours of surgery. - TIME SPENT Time Spent in Discharge (Minutes): 60"
== END 2020-06-07 12:35 | disposition home or self-care (01) | DRG 330 ==
LOC: MS2 06:20 → ICU 09:01 → MS2 06-03 17:11
PROVIDERS: ADMIT Surgery; ATTEND Surgery
PROC: 0D1B4Z4 Bypass Ileum to Cutaneous, Percutaneous Endoscopic Approach (ICD-10-PCS; 2020-06-02)
PROC: 0DBP4ZZ Excision of Rectum, Percutaneous Endoscopic Approach (ICD-10-PCS; 2020-06-02)
PROC: 0DBN4ZZ Excision of Sigmoid Colon, Percutaneous Endoscopic Approach (ICD-10-PCS; 2020-06-02)
PROC: 0DNU3ZZ Release Omentum, Percutaneous Approach (ICD-10-PCS; 2020-06-02)
PROC: 0DNG4ZZ Release Left Large Intestine, Percutaneous Endoscopic Approach (ICD-10-PCS; principal; 2020-06-02 07:30)
PROC: 02HV33Z Insertion of Infusion Device into Superior Vena Cava, Percutaneous Approach (ICD-10-PCS; 2020-06-06)
DX: C20 Malignant neoplasm of rectum (principal); D62 Acute posthemorrhagic anemia; K42.9 Umbilical hernia without obstruction or gangrene; K66.0 Peritoneal adhesions (postprocedural) (postinfection); E87.6 Hypokalemia; R73.9 Hyperglycemia, unspecified; I44.4 Left anterior fascicular block; R00.1 Bradycardia, unspecified; E86.0 Dehydration; M48.061 Spinal stenosis, lumbar region without neurogenic claudication; M79.652 Pain in left thigh; I10 Essential (primary) hypertension; E78.5 Hyperlipidemia, unspecified; E03.9 Hypothyroidism, unspecified; E66.9 Obesity, unspecified; Z68.31 Body mass index [BMI] 31.0-31.9, adult; M19.90 Unspecified osteoarthritis, unspecified site; R32 Unspecified urinary incontinence; Z96.641 Presence of right artificial hip joint; Z79.82 Long term (current) use of aspirin; Z79.899 Other long term (current) drug therapy; Z92.21 Personal history of antineoplastic chemotherapy; Z92.3 Personal history of irradiation; Z86.11 Personal history of tuberculosis; Z97.2 Presence of dental prosthetic device (complete) (partial)
CPT/HCPCS: 36415; 71045; 72110; 76882; 80053; 83036; 83735; 84100; 85025; 87150; 97161; 97165; 97530; A9270; C1751; J0131; J2765; J7120

== ENCOUNTER 2020-06-21 08:00 | Outpatient (CLI) | payer MEDICARE, OTHER ==
--- NOTE | 2020-06-21 15:19 | XRAY Report ---
PROCEDURE: Shoulder 3 View BILAT INDICATIONS: BILATERAL SHOULDER PAIN TECHNIQUE: 3 views of each shoulder were acquired. COMPARISON: None. FINDINGS: Bones: No fractures or dislocations. No suspicious bony lesions. Visualized ribs appear intact. M ild periarticular osteophyte formation at the bilateral acromioclavicular and glenohumeral joints. Soft tissues: No suspicious soft tissue calcifications. IMPRESSION: Osteoarthritis. No acute fracture. No osseous lesion. If symptoms and/or clinical suspic ion for pathology continue, further assessment with repeat plain films, or advanced imaging (e.g., CT , MRI, or bone scan) is recommended for further assessment. Reviewed by: Edgardo Taylor MD on 06/21/2020 3:18 PM PST Approved by: Edgardo Taylor MD on 06/21/2020 3:18 PM PST Station ID: [id number]
== END 2020-06-21 23:59 | disposition home or self-care (01) ==
LOC: DI.WCP 08:00
PROVIDERS: ATTEND Physician Assistant Medical
DX: M25.511 Pain in right shoulder (principal); M25.512 Pain in left shoulder; M19.012 Primary osteoarthritis, left shoulder; M19.011 Primary osteoarthritis, right shoulder

== ENCOUNTER 2020-07-11 11:31 | Day surgery (SDC) | payer MEDICARE, OTHER ==
[2020-07-11] MEDS ORDERED: LACTATED RINGERS 1,000 ML IV ONE ×2 (11:59→15:18)
--- NOTE | 2020-07-11 12:16 | ANESTHESIA ---
Pre-Anesthesia VS, & Labs - Diagnosis Rectal cancer - Procedure colonoscopy Vital Signs: Temp Pulse Resp BP Pulse Ox 36.4 C L 58 L 16 128/83 H 97 07/11/20 11:50 07/11/20 11:50 07/11/20 11:50 07/11/20 11:50 07/11/20 11:50 Height: 5 ft 7 in - NPO Last Fluid Intake: clears to 09 - Is Patient ?: No - Lab Results Lab results reviewed: Yes Home Medications and Allergies Aspirin [Aspirin EC] 81 mg PO DAILY 12/15/16 Folic Acid 0.4 mg PO DAILY 12/15/16 Simvastatin [Zocor] 20 mg PO DAILY 12/15/16 Levothyroxine [Synthroid] 100 mcg ORAL DAILY 03/08/20 Cholecalciferol [Vitamin D3] 25 mcg PO QDBREAKFAST 05/29/20 Hydrochlorothiazide 25 mg PO QDBREAKFAST 06/13/20 Meloxicam [Mobic] 7.5 mg PO BID 06/13/20 traMADol [Ultram] 1 tab PO Q4-6H PRN 06/13/20 Allergies/Adverse Reactions: Allergies Allergy/AdvReac Type Severity Reaction Status Date / Time ELIZABETH Inhibitors Allergy Hives Verified 07/11/20 12:14 lisinopril Allergy Hives Verified 07/11/20 12:14 telmisartan [From Micardis] Allergy Hives Verified 07/11/20 12:14 Anes History & Medical History - Anesthetic History Anesthesia Complications: reports: No previous complications Family history of Anesthesia Complications: Denies Family history of Malignant Hyperthermia: Denies - Medical History Cardiovascular: reports: Hypertension, Murmur Pulmonary: reports: Tuberculosis Gastrointestinal: reports: Hemorrhoids Urinary: reports: Incontinence, Chronic bladder infection Neuro: reports: Headaches Musculoskeletal: reports: Osteoarthritis Endocrine/Autoimmune: reports: HyPOthyroidism Skin: reports: None, Other Smoking Status: Never smoker History of Cancer?: Yes (rectal) - Surgical History General: reports: Appendectomy Eyes Ears Nose Throat (EENT): reports: Cataracts, Tonsil/Adenoidectomy Urologic: reports: Bladder surgery Gynecologic: reports: Dilation and currettage, Hysterectomy, Other Orthopedic: reports: Hip replacement Exam General: Alert, Oriented x3, Cooperative Dental: Other (implants) Mouth Openin Fingerbreadth Neck Mobility: Normal Mallampati classification: II Thyromental Distance: 4-6 cm Respiratory: Lungs clear, Normal breath sounds, No respiratory distress Cardiovascular: Regular rate (mauricio@56) Neurological: Normal speech Mental/Cognitive Status: Alert/Oriented X3, Normal for patient Cognitive Status: Within normal limits Plan Anesthesia Type: Total IV Consent for Procedure(s) Verified and Reviewed: Yes Code Status: Attempt Resuscitation ASA classification: 3-Severe systemic disease Is this case an emergency?: No
[2020-07-11 15:52] VITALS: BP 131/71
--- NOTE | 2020-07-11 16:36 | ANESTHESIA POST OP EVALUATION ---
Anesthesia Post Eval - Post Anesthesia Eval Vitals: Last Vital Signs Temp 36.4 C L 07/11/20 15:45 Pulse 63 07/11/20 15:45 Resp 16 07/11/20 15:45 BP 131/71 H 07/11/20 15:45 Pulse Ox 98 07/11/20 15:45 CV Function Including HR & BP: positive: Stable Pain Control: positive: Satisfactory Nausea & Vomiting: positive: Negative Mental Status: positive: Baseline Respiratory Status: Airway Patent Hydration Status: Satisfactory Anesthesia Complications: positive: None
== END 2020-07-11 11:32 | disposition home or self-care (01) ==
LOC: SDS 11:31
PROVIDERS: ATTEND Surgery
DX: C20 Malignant neoplasm of rectum (principal); Z98.0 Intestinal bypass and anastomosis status; I10 Essential (primary) hypertension; E11.9 Type 2 diabetes mellitus without complications; E03.9 Hypothyroidism, unspecified
CPT/HCPCS: 45378; J7120

== ENCOUNTER 2020-07-18 10:40 | Outpatient (CLI) | payer MEDICARE, OTHER ==
[2020-07-18] MEDS ORDERED: IOVERSOL 320 100 ML VIAL IVP ONE ×2 (11:01→14:48)
[2020-07-18] MEDS ORDERED: IOPAMIDOL-300 50 ML VIAL ONE (11:01)
[2020-07-18] MEDS ORDERED: IOPAMIDOL-300 50 ML VIAL PO ONE (14:47)
--- NOTE | 2020-07-18 16:31 | CT Report ---
PROCEDURE: Abdomen/Pelvis W INDICATIONS: COLON CA CONTRAST: IV CONTRAST: Optiray 320 ml: 100 PO CONTRAST: Isovue 300 ml50 TECHNIQUE: After the administration of oral and intravenous contrast, 5 mm thick sections acquired from the diap hragms to the symphysis. 5 mm thick coronal and sagittal reformats were acquired. For radiation dos e reduction, the following was used: automated exposure control, adjustment of mA and/or kV accordin g to patient size. COMPARISON: None. FINDINGS: Image quality: Excellent. ABDOMEN: Lung bases: Lung bases are clear. Unchanged peripheral nodular density, right lower lobe. Reference image 06/28. Mild cardiomegaly with four-chamber enlargement. Solid organs: Liver and spleen are normal in size and enhancement. Gallbladder is unremarkable. Bi liary system is non dilated. Pancreas enhances normally. No adrenal nodules. Kidneys demonstrate n ormal size and enhancement, without hydronephrosis. Small bilateral renal cysts. No suspicious renal lesions identified. Peritoneum and bowel: Interval ileostomy. A rectal tube has instilled contrast in a retrograde shamir r through the colon, which is normal in caliber. Large incidental diverticulum at the junction betwee n the duodenum and proximal jejunum. Bowel loops demonstrate normal wall thickness and caliber. No f ree fluid or air. Nodes and vessels: No retroperitoneal or mesenteric adenopathy by size criteria. Aorta and inferior vena cava are normal in size. Miscellaneous: No ventral hernias. PELVIS: Genitourinary: Bladder wall thickness is normal. Miscellaneous: No inguinal hernias or adenopathy. Bones: No suspicious bony lesions. No vertebral body compression fractures. Bilateral hip arthropl asties result in significant beam hardening artifact in the lower pelvis. Degenerative anterolisthesi s of L4 on L5 measuring approximately 9 mm with resultant severe canal stenosis. IMPRESSION: 1. Stable right basilar pulmonary nodule. 2. No suspicious renal lesion identified. 3. No evidence of metastatic disease in the abdomen and pelvis. Reviewed by: Carlos Ceja MD on 07/18/2020 4:29 PM PDT Approved by: Carlos Ceja MD on 07/18/2020 4:29 PM PDT Station ID: [id number]
== END 2020-07-18 10:41 | disposition home or self-care (01) ==
LOC: DI 10:40
PROVIDERS: ATTEND Surgery
DX: R91.1 Solitary pulmonary nodule (principal)
CPT/HCPCS: 74177; Q9967

== ENCOUNTER 2020-08-09 11:17 | Outpatient (CLI) | payer MEDICARE, OTHER | END 2020-08-09 23:59 | disposition home or self-care (01) | LOC: LAB.R 11:17 | PROVIDERS: ATTEND Family Medicine | DX: N39.0 Urinary tract infection, site not specified (principal) | CPT/HCPCS: 87086 ==

== ENCOUNTER 2020-08-24 07:30 | Inpatient (IN) | payer MEDICARE, OTHER ==
[~2020-08-24 07:30] MED LIST: ACETAMINOPHEN 1,000 MG/100 ML 100 ML IV ONE; CELECOXIB 100 MG CAPSULE PO ONE; GABAPENTIN 400 MG CAPSULE ONE; metroNIDAZOLE 500 MG/100 ML 500 MG/100 ML BAG ONE
[2020-08-24] MEDS ORDERED: HEPARIN 5,000 UNIT/ML VIAL ONE (08:02)
[2020-08-24] MEDS ORDERED: LACTATED RINGERS 1,000 ML IV ONE ×2 (09:52→15:17)
[2020-08-24] MEDS ORDERED: CIPROFLOXACIN 400 MG/200 ML 400 MG/200 ML BAG IV ONE (10:44)
--- NOTE | 2020-08-24 10:51 | PHARMACY PROGRESS NOTE ---
- Best Possible Medication History Admit Date and Time: 08/24/20 0940 Processed by: Nursing Medication History completed: Yes (MED REC COMPLETED BY NURSING) As the person ultimately responsible for medication therapy, providers are able to order a medication from an existing home medication list in [facility] via the "Reconcile Routine" prior to Confirmation of that medication by intranet support. Such practice is discouraged except when the physician, in their clinical judgment, deems that a medical need exists for a medication without regard to previous use.
[2020-08-24] MEDS ORDERED: ONDANSETRON 4 MG/2 ML VIAL IVP PRN ×2 (12:28→15:24)
[2020-08-24] MEDS ORDERED: METOCLOPRAMIDE 10 MG/2 ML VIAL IVP PRN (12:28)
[2020-08-24] MEDS ORDERED: ePHEDrine 50 MG/ML VIAL IVP PRN (12:28)
[2020-08-24] MEDS ORDERED: ATROPINE ABBOJECT 1 MG/10 ML SYRINGE IVP PRN (12:28)
[2020-08-24] MEDS ORDERED: MORPHINE 2 MG/ML CARPUJECT IVP PRN (12:28)
[2020-08-24] MEDS ORDERED: fentaNYL 100 MCG/2 ML VIAL IVP PRN (12:28)
[2020-08-24] MEDS ORDERED: NALOXONE 0.4 MG/ML VIAL IVP PRN (12:28)
[2020-08-24] MEDS ORDERED: HYDROmorphone 0.5 MG/0.5 ML SYRINGE IVP PRN (12:28)
--- NOTE | 2020-08-24 12:28 | ANESTHESIA ---
Pre-Anesthesia VS, & Labs - Diagnosis rectal cancer - Procedure Ileostomy takedown Vital Signs: Temp Pulse Resp BP Pulse Ox 36.1 C L 71 16 143/79 H 98 08/24/20 10:00 08/24/20 10:00 08/24/20 10:00 08/24/20 10:00 08/24/20 10:00 Height: 5 ft 7 in Weight (kg): 79 kg Body Mass Index: 27.2 BMI Classification: Overweight - NPO >8 hours - Is Patient ?: No - Lab Results Current Lab Results: Laboratory Tests 08/24/20 10:25: POC Whole Bld Glucose 91 Lab results reviewed: Yes Home Medications and Allergies Aspirin [Aspirin EC] 81 mg PO DAILY 12/15/16 Folic Acid 0.4 mg PO DAILY 12/15/16 Simvastatin [Zocor] 20 mg PO DAILY 12/15/16 Levothyroxine [Synthroid] 100 mcg ORAL DAILY 03/08/20 Cholecalciferol [Vitamin D3] 25 mcg PO QDBREAKFAST 05/29/20 Hydrochlorothiazide 25 mg PO QDBREAKFAST 06/13/20 Meloxicam [Mobic] 7.5 mg PO BID 06/13/20 traMADol [Ultram] 1 tab PO Q4-6H PRN 06/13/20 Allergies/Adverse Reactions: Allergies Allergy/AdvReac Type Severity Reaction Status Date / Time ELIZABETH Inhibitors Allergy Hives Verified 07/14/20 11:29 lisinopril Allergy Hives Verified 07/14/20 11:29 telmisartan [From Micardis] Allergy Hives Verified 07/14/20 11:29 Anes History & Medical History - Anesthetic History Anesthesia Complications: reports: No previous complications Family history of Anesthesia Complications: Denies Family history of Malignant Hyperthermia: Denies - Medical History Cardiovascular: reports: Hypertension, High cholesterol, Murmur Pulmonary: reports: Tuberculosis Gastrointestinal: reports: Hemorrhoids, Other Urinary: reports: Incontinence, Chronic bladder infection Neuro: reports: Headaches Musculoskeletal: reports: Osteoarthritis, Chronic back pain Endocrine/Autoimmune: reports: HyPOthyroidism Skin: reports: None Smoking Status: Never smoker Other Past Medical History: after first cancer surgery, patient had left lateral posterior thigh pain for 3 months. Discussed with patient we would watch for positioning. - Surgical History General: reports: Appendectomy, Bowel surgery, Colonoscopy Eyes Ears Nose Throat (EENT): reports: Cataracts, Tonsil/Adenoidectomy Urologic: reports: Bladder surgery Gynecologic: reports: Dilation and currettage, Hysterectomy, Other Orthopedic: reports: Hip replacement, Other Exam General: Alert, Oriented x3, Cooperative, No acute distress Mouth Openin Fingerbreadth Neck Mobility: Normal Mallampati classification: I Respiratory: Lungs clear, Normal breath sounds, No respiratory distress, No accessory muscle use Cardiovascular: Regular rate Plan Anesthesia Type: General, Transverse Abdominis Plane (TAP) Block Consent for Procedure(s) Verified and Reviewed: Yes Code Status: Attempt Resuscitation ASA classification: 2-Mild systemic disease Is this case an emergency?: No
[2020-08-24] MEDS ORDERED: BUPIVACAINE 0.5% PF 30 ML VIAL ONE (12:51)
[2020-08-24] MEDS ORDERED: PROPOFOL 200 MG/20 ML VIAL IVP ONE (12:53)
[2020-08-24] MEDS ORDERED: fentaNYL 100 MCG/2 ML VIAL ONE (12:53)
[2020-08-24] MEDS ORDERED: MIDAZOLAM 2 MG/2 ML VIAL ONE (12:53)
[2020-08-24] MEDS ORDERED: LIDOCAINE-MPF 2% 5 ML VIAL ONE (12:56)
[2020-08-24] MEDS ORDERED: LACTATED RINGERS 1,000 ML IV SCH (13:00)
[2020-08-24] MEDS ORDERED: LIDOCAINE MPF 2%-EPI 1:200000 20 ML VIAL ONE (13:16)
[2020-08-24] MEDS ORDERED: BUPIVACAINE 0.5% PF 30 ML VIAL INFIL ONE ×2 (13:45→15:02)
[2020-08-24] MEDS ORDERED: LIDOCAINE 2%-EPI 1:100000 20 ML MDV SUBQ ONE ×2 (13:45)
[2020-08-24] MEDS ORDERED: NEOSTIGMINE 1 MG/1 ML 10 ML MDV ONE (14:44)
[2020-08-24] MEDS ORDERED: GLYCOPYRROLATE 1 MG/5 ML VIAL ONE (14:44)
[2020-08-24] MEDS ORDERED: HYDROmorphone 1 MG/ML CARPUJECT ONE (14:46)
[2020-08-24] MEDS ORDERED: DEXAMETHASONE 4 MG/ML VIAL ONE (15:12)
[2020-08-24] MEDS ORDERED: ePHEDrine 50 MG/ML VIAL IVP ONE (15:12)
[2020-08-24] MEDS ORDERED: ONDANSETRON 4 MG/2 ML VIAL ONE (15:12)
--- NOTE | 2020-08-24 15:23 | OPERATIVE REPORT ---
Operative Report - General Admit Date: 08/24/20 Planned Procedure: 1. Ileostomy takedown 2. Small bowel resection 3. Zvjs-kk-coji functional end-to-end antiperistaltic anastomosis stapled with primary enterotomy closure to layers 4. Parastomal hernia repair 5. Drain placement Pre-Op Diagnosis: Hx of rectal ca; history of short course neoadj chemorad; s/p LAR & DLI Procedure Performed: 1. Ileostomy takedown 2. Small bowel resection 3. Dppf-rp-dkcy functional end-to-end antiperistaltic anastomosis stapled with primary enterotomy closure in layers 4. Parastomal hernia repair 5. Drain placement 6. adhesiolysis Post Op Diagnosis: Same; viable enteroenterostomy no complication. Adhesions. - Procedure Note Primary Surgeon: Ashwin Secondary Surgeon: Brad Anesthesia Provider: Caden Anesthesia Technique: General ET tube, Local Pathology: Ileostomy Estimated Blood Loss (mL): 70 Drain/Tube Type: Antonio drain, Other (Ileostomy site packing plain packing strip 1 continuous length.) Indications: See clinic note please Findings: Adhesions; viable enteroenterostomy. No complications. Complications: None - Other Other Information/Narrative: 1. Ileostomy takedown 2. Small bowel resection 3. Tigc-hi-wcxg functional end-to-end antiperistaltic anastomosis stapled with primary enterotomy closure to layers 4. Parastomal hernia repair 5. Drain placement 6. Adhesiolysis Operative note: TAKEDOWN OF DIVERTING LOOP ILEOSTOMY: The patient was taken to the operating room, placed supine on the operating table, placed for bilateral lower extremity serial compression devices and induced for general endotracheal anesthesia. Please note the patient was already performed for preoperative colonoscopy with patent anastomosis for history of rectal cancer treated by neoadjuvant short course chemoradiation and laparoscopic assisted low anterior resection with proximal diverting loop ileostomy. Patient also underwent CT scan as well with rectal contrast with no concern. Once this was completed, ostomy appliance was taken off the abdomen and using a Vicryl suture, the proximal limb of diverting loop ileostomy was ligated in order to prevent intraoperative spillage. A Medina catheter was placed. The abdomen was prepped and draped in the usual sterile fashion and perioperative antibiotics were given within an hour of surgical incision. Timeout was called and agreed to by all the room. Surrounding the diverting loop ileostomy using a scalpel, the mucocutaneous junction was incised outside of the mucus border and this was taken down through to the superficial subcutaneous fat with Bovie electrocautery. Once this was completed, using sharp dissection and Bovie electrocautery the diverting loop ileostomy was dissected free from the surrounding adhesions again sharply with scalpel & Metzenbaum scissors as well as Bovie electrocautery dissection, using great care to avoid injury to the small intestine. This was taken down through to the level of fascia. This was incised and ultimately the ileostomy was freed from its surrounding attachments and any adhesions were appropriately lysed. Additional adhesiolysis was necessary for appropriate prolapse of the diverting loop ileostomy and after this was completed, we chose points of transection and after dividing and ligating the intervening mesentery, the small intestine was divided using a linear cutting stapler with a triple staple line. The ileostomy was sent for permanent pathology. Once this was completed, Allis clamps were placed along the antimesenteric staple lines of both ends. These were incised and divided using curved Carrington scissors and thereafter limbs of the linear cutting stapler were placed through both enterotomies and the avpi-iw-khnp anastomosis was created. There was no bleeding, and after the stapler was fired, two seromuscular crotch stitches were placed in order to relieve any tension. Thereafter, the enterotomies were closed in two layers, first with a Bhupinder running suture, followed by interrupted Lembert stitches of 2-0 Vicryl. The anas tomosis was widely patent, intact, with no ischemic changes noted. The abdomen was aggressively irrigated and aspirated clear. A drain was placed through the historic trocar site in the right upper quadrant. 19 Antonio. Omentum was replaced over the anastomosis. At this time there was no concern for any intra-abdominal process, adhesiolysis had been performed, bowel was run, with no worrisome features appreciated. We proceeded to close the posterior fascia in a running fashion using 0 Vicryl. Next we reapproximated the rectus with interrupted dlojma-ka-linnm of 0 Vicryl. We ran the fascia with loop PDS any directionally and tied to itself in a running fashion at the posterior lateral apex. The wound was aggressively irrigated and aspirated clear. The skin was closed in a pursestring of 0 Vicryl. This was thereafter packed with 1 continuous loop of packing strip. This was dressed with dry sterile gauze and Tegaderm. Please note the drain was sutured in place with 2-0 nylon a nd a Biopatch was placed with a Tegaderm atop. The patient was locally instilled with 1% lidocaine plus half percent Marcaine. Patient tolerated procedure well which was no complication. All counts of sponges needles and instruments were correct at conclusion of this case. I was present for the entirety of this operative intervention. Patient would be maintained for Medina at this time. I was physically present for the entirety of the surgical procedure as indicated above.
[2020-08-24] MEDS ORDERED: ACETAMINOPHEN 1,000 MG/100 ML 100 ML IV ONE (15:24)
[2020-08-24] MEDS ORDERED: polyethylene glycoL 3350 17 GM PACKET PO PRN (15:24)
[2020-08-24] MEDS ORDERED: MORPHINE 2 MG/ML CARPUJECT ONE (15:34)
[2020-08-24] MEDS ORDERED: metroNIDAZOLE 500 MG/100 ML 500 MG/100 ML BAG IV SCH (16:00)
[2020-08-24] MEDS ORDERED: CIPROFLOXACIN 400 MG/200 ML 400 MG/200 ML BAG IV SCH (16:00)
[2020-08-24 16:48] LABS: BASOPHILS % (AUTO) 0.1 %; EOSINOPHILS % (AUTO) 0.1 %; HCT - HEMATOCRIT 37.9 % (37.0-47.0); HGB - HEMOGLOBIN 12.2 g/dL (12.0-16.0); LYMPHOCYTES # (AUTO) 0.5 10^3/uL (1.5-3.5); LYMPHOCYTES % (AUTO) 2.9 %; MEAN CORPUSCULAR HEMOGLOBIN 28.4 pg (27.0-31.0); MEAN CORPUSCULAR HGB CONC 32.2 g/dL (32.0-36.0); MEAN CORPUSCULAR VOLUME 88.1 fL (81.0-99.0); MONOCYTES # (AUTO) 0.4 10^3/uL (0.0-1.0); MONOCYTES % (AUTO) 2.2 %; NEUTROPHILS # (AUTO) 16.7 10^3/uL (1.5-6.6); NEUTROPHILS % (AUTO) 94.2 %; PLT - PLATELET COUNT 306 10^3/uL (130-450); RED CELL DISTRIBUTION WIDTH 16.4 % (12.0-15.0); WHITE BLOOD COUNT 17.7 x10^3/uL (4.8-10.8)
[2020-08-24 16:53] LABS: MAGNESIUM 1.6 mg/dL (1.7-2.8); PHOSPHORUS 3.2 mg/dL (2.5-4.6)
[2020-08-24 17:01] LABS: ALBUMIN 3.6 g/dL (3.2-5.5); ALBUMIN/GLOBULIN RATIO 1.2 (1.0-2.2); BILIRUBIN,TOTAL 0.6 mg/dL (0.2-1.0); CALCIUM 9.3 mg/dL (8.5-10.3); CREATININE 0.8 mg/dL (0.4-1.0); POTASSIUM 3.7 mmol/L (3.5-5.0); TOTAL PROTEIN 6.5 g/dL (6.7-8.2)
[2020-08-24] MEDS: D5NS W/20 MEQ KCL 1,000 ML IV SCH (17:26)
--- NOTE | 2020-08-24 17:43 | CONSULTATION NOTE ---
Referring Provider Name of Referring Provider:: Costa Christopher MD Consult Date: 08/24/20 Chief Complaint - Chief Complaint Chief Complaint: bradycardia History of Present Illness - Admitted From Admitted From:: PACU s/p surgery - History Obtained From Records Reviewed: [facility] History obtained from: Dr. Christopher Exam Limitations: none - History of Present Illness HPI Comment/Other: I have previously met this thao lady on June 02 of this year when I was asked to consult in the postoperative setting for bundle branch block on telemetry while she was in the operating room as well as bradycardia. At that time my note stated: I am being asked to see this patient for a bundle branch block seen on telemetry intraoperatively as well as bradycardia. She is a thao lady who has a moderately differentiated adenocarcinoma of the rectum. She underwent neoadjuvant chemoradiation with capecitabine and now presents for low anterior resection today. She underwent an uncomplicated resection. Intraoperatively the bundle branch block and bradycardia were noted. Since waking up in PACU, the patient is not complaining of any chest pain, diaphoresis, shortness of breath. Her main complaint is an 8 out of 10 abdominal incisional pain. With Dilaudid she now has it down to a tolerable 2 out of 10. Her past medical history regards to cardiac disease has hypertension, hyperlipidemia but she has never had a heart attack, stroke. She was evaluated preoperatively by a instructional services specialist. She had a negative colonoscopy in 2002. She declined a colonoscopy in 2017. She began having anal bleeding in October 2019. Colonoscopy resulted in the diagnosis of a mass 7 cm beyond the anal verge that had invasive, moderately differentiated colonic adenocarcinoma. Based on the normal expression of the mismatch repair proteins this was unlikely to be a microsatellite unstable tumor and not associated with Michael syndrome. She progressed to the visit with oncology were she was treated with chemoradiation. And today she had the low anterior resection. Cardiology consult was done by Kyle Frey April 04, 2020. He noted that she had a history of bradycardia. A murmur has been heard in the past and he noted the echocardiogram from July 2017 that said mild ventricular hypertrophy, a minimally sclerotic aortic valve. A stress test in 2004 was equivocal, and additional stress testing in [facility] was reassuring at that time. She is , lives by herself, carries on her own groceries. She did not have a history of rheumatic fever or scarlet fever. When he saw her in the office her EKG had sinus bradycardia 49 bpm with PACs. MD interval was 142. QRS was 148 and she had a left anterior fascicular block that was nonspecific with IVCD. Her QT corrected was 458 with an axis of -80. She told the instructional services specialist that that abnormal EKG was not new. He offered to do a myocardial perfusion imaging and she declined. He did not feel that she had an indication for pacemaker since she was not symptomatic. It would be reasonable to consider beta-blockade in some individuals preoperatively however she already had bradycardia and conduction system disease so he did not feel he should do anything. He did not recommend changing anything for her hypertension. The patient was discharged from that for surgery on June 07. She has not been reseen by cardiology but has been seen by oncology. With her last visit on July 14 her T3 lesion was slightly suspicious presacral nodes was discussed. After discussing capecitabine for 6 more months, and discussing the rationale, risk/benefits, common and rare adverse events to that, she decided not to proceed with chemotherapy.She was maintained on fluid resuscitation with weekly schedule IV boluses secondary to the risk of dehydration and renal failure with a diverting proximal loop ileostomy. Colonoscopy had no complications and she had a patent anastomosis. She was admitted today for an ileostomy takedown with small bowel resection. She is also undergone a mwec-ua-kjct functional end-to-end antiperistaltic anastomosis, parastomal hernia repair, drain placement and adhesiolysis. In the recovery. She had a heart rate in the mid 40s to 60s. Anesthesia was consulted and no intervention was needed. She was transferred to [facility]. Heart rate continues to be 40-47 with a blood pressure of 144/164, and 163/79. Room air sats are 95 to 96% and her respirations are 18. Dr. Christopher has asked me to see this patient in consultation regarding any further need for treatment of the bradycardia. She is seen in [facility]. She smiles when I tell her that I am here to see her for her slow heart rate. She just shakes her head and shrugs her shoulders and says that she always has a slow heart rate. I explained that she was getting as low as the high 20s when she went to sleep this afternoon and she says that that is not unusual. Her baseline heart rate when she is awake is in the 40s. She denies chest pain, palpitations, shortness of breath, and feels perfectly comfortable. She feels exhausted after undergoing the surgery. States that her pain is well controlled at this time. 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 Discussed with patient we would watch for positioning. She also has a paraproteinemia that she has been followed by oncology to make sure she does not go on to develop multiple myeloma - Past Surgical History General: reports: Appendectomy, Bowel surgery, Colonoscopy Ortho: reports: Hip replacement, Other /EXCEPTIONAL CHILDREN'S TEACHER: reports: Dilation and currettage, Hysterectomy, Other HEENT: reports: Cataracts, Tonsil/Adenoidectomy - Family & Social History Family History Comment/Other: Mother is Age 94,and had anesthetic complications, heart disease, hypertension, hyperlipidemia. Dad is deceasedAge 80 and had heart disease w acb age 70, hypertension, hyperlipidemia. Son Broderick has multiple sclerosis. Son Moises has heart disease. Maternal aunt with breast cancer Living Situation: With spouse/s.o. Social History Notes: She never smoked. She rarely drank. 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 Her son, Pipo Nails, is their DURABLE POWER OF DIRECTOR OF LOGISTICS. - Substance History Use: Uses substance without health or social issues: NONE - POLST Patient has POLST: No POLST Status: Full Code Meds/Allgy - Home Medications Home Medications: Ambulatory Orders Medication Instructions Recorded Confirmed Aspirin [Aspirin EC] 81 mg PO DAILY 12/15/16 08/24/20 Folic Acid 0.4 mg PO DAILY 12/15/16 08/24/20 Simvastatin [Zocor] 20 mg PO DAILY 12/15/16 08/24/20 Levothyroxine [Synthroid] 100 mcg ORAL DAILY 03/08/20 08/24/20 Cholecalciferol [Vitamin D3] 25 mcg PO QDBREAKFAST 05/29/20 08/24/20 Acetaminophen [Tylenol] 500 mg PO Q4HR PRN 06/07/20 08/24/20 Neutra-Phos [K-Phos Neutral] 250 mg PO TIDWM 30 Days #90 tab 06/07/20 08/24/20 Pregabalin [Lyrica] 100 mg PO BID 10 Days #20 tab 06/07/20 08/24/20 methocarbamoL [Robaxin] 500 mg PO Q6HR PRN #50 tab 06/07/20 08/24/20 oxyCODONE [Roxicodone] 5 mg PO Q4HR PRN #12 tab 06/07/20 08/24/20 Hydrochlorothiazide 25 mg PO QDBREAKFAST 06/13/20 08/24/20 Meloxicam [Mobic] 7.5 mg PO BID 06/13/20 08/24/20 traMADol [Ultram] 1 tab PO Q4-6H PRN 06/13/20 08/24/20 - Allergies Allergies/Adverse Reactions: Allergies Allergy/AdvReac Type Severity Reaction Status Date / Time ELIZABETH Inhibitors Allergy Hives Verified 07/14/20 11:29 lisinopril Allergy Hives Verified 07/14/20 11:29 telmisartan [From Micardis] Allergy Hives Verified 07/14/20 11:29 Review of Systems - Constitutional Constitutional: reports: Other (Fatigue, poor appetite since her last surgery. But weight has been maintained. No sweats, chills.) - Eyes Eyes: reports: Other (Denies any change) - Ears, Nose & Throat Ears, Nose & Throat: reports: Other (Denies deafness, ear pain, nose congestion, sore throat.) - Cardiovascular Cariovascular: denies: Irregular heart rate, Palpitations, Chest pain, Edema, Lightheadedness, Syncope, Exertional dyspnea - Respiratory Respiratory: denies: Cough, Sputum production, Wheezing - Gastrointestinal Gastrointestinal: reports: Abdominal pain (With the surgery. But nothing severe.) - Genitourinary Genitourinary: denies: Dysuria, Frequency, Urgency - Musculoskeletal Musculoskeletal: reports: Back pain (Mild from laying in the hospital bed) - Integumentary Integumentary: denies: Rash, Pruritis - Neurological Neurological: reports: General weakness. denies: Focal weakness, Headache, Dizziness - Psychiatric Psychiatric: denies: Depression, Anxiety, Suicidal - Endocrine Endocrine: denies: Polyuria, Polydypsia, Polyphagia - Hematologic/Lymphatic Hematologic/Lymphatic: reports: Anemia, Bruising. denies: Petechiae Exam - Vital Signs Reviewed Vital Signs: Yes Vital Signs: Vital Signs x48h Temp Pulse Pulse Resp BP BP Pulse Ox 08/24/20 17:10 36.3 C L 47 L 18 144/64 H 96 08/24/20 16:10 36.3 C L 40 L 18 163/79 H 95 08/24/20 15:50 36.4 C L 54 L 16 159/77 H 95 08/24/20 15:45 51 L 15 163/68 H 96 08/24/20 15:40 51 L 17 159/73 H 97 08/24/20 15:35 54 L 14 163/76 H 96 08/24/20 15:30 36.6 C 56 L 15 162/75 H 97 08/24/20 15:25 36.6 C 55 L 16 157/83 H 96 08/24/20 15:20 36.6 C 62 15 157/83 H 96 08/24/20 15:16 36.4 C L 63 18 153/81 H 96 08/24/20 10:00 36.1 C L 71 16 143/79 H 98 - Physical Exam General Appearance: positive: No acute distress, Alert (But sleepy.), Other (I have woken her up, and she is comfortable, tired appearing, but comfortable.) Eyes Bilateral: positive: PERRL, EOMI Neck: positive: No JVD. negative: Stiff neck Respiratory: positive: No respiratory distress, Other (Slow, shallow, unlabored respirations even with speaking to me.). negative: Wheezes, Rales, Rhonchi Cardiovascular: positive: Regular rate & rhythm, Bradycardia, Systolic murmur. negative: Gallop/S4, Friction rub Peripheral Pulses: positive: 1+ Abdomen: positive: Other (No bowel sounds. Mild tenderness at incision sites.) Skin: positive: Warm, Dry, Other (Although her trunk is warm, hands and feet are quite cold) Extremities: positive: Non-tender, Full ROM, No pedal edema Neurologic/Psychiatric: positive: Oriented x3, CN's nml (2-12), Motor nml, Sensation nml Conclusion/Plan - Diagnosis Diagnosis: Sinus bradycardia. This is a known condition for this thao lady. At this time she is not a candidate for pacemaker. I would only use atropine if she is symptomatic. Symptoms would consist of syncope, orthostatic lightheadedness, chest pain, shortness of breath. - Plan Plan: In the postoperative setting her problems of high blood pressure, high cholesterol, hypothyroidism should be addressed when she is able to take p.o. and she can resume her home medications. DVT prophylaxis is ongoing. Would encourage incentive spirometry. Thank you very much for allowing us to participate in the care of this thao patient. At this time there are no ongoing needs and we will resee her on an as-needed basis. - Lab Results Lab results reviewed: Yes Fish Bones: 08/24/20 16:36 08/24/20 16:36 - EKG Results EKG Interpreted Independently: No
[2020-08-24] MEDS ORDERED: MAGNESIUM SULFATE 2 GRAM 2 GM/50 ML BAG IV ONE (17:47)
[2020-08-24] MEDS: SODIUM CHLORIDE FLUSH 0.9% 10 ML SYRINGE IVP SCH (18:21)
[2020-08-24] MEDS: methocarbamoL 500 MG TABLET PO SCH (18:53)
[2020-08-24] MEDS: KETOROLAC 30 MG/ML VIAL IVP SCH (18:54)
[2020-08-24] MEDS: SODIUM CHLORIDE FLUSH 0.9% 10 ML SYRINGE IVP PRN ×2 (18:55→19:12)
[2020-08-24] MEDS: METOCLOPRAMIDE 10 MG/2 ML VIAL IVP SCH (18:58)
[2020-08-24] MEDS: polyethylene glycoL 3350 17 GM PACKET PO SCH (22:06)
[2020-08-24] MEDS: DOCUSATE SODIUM 100 MG CAPSULE PO SCH (22:06)
[2020-08-24] MEDS: BUTALB/ACETAM/CAFF 50/325/40MG TABLET PO PRN (22:54)
[2020-08-25] MEDS: KETOROLAC 30 MG/ML VIAL IVP SCH ×4 (00:39→18:05)
[2020-08-25] MEDS: METOCLOPRAMIDE 10 MG/2 ML VIAL IVP SCH ×4 (00:41→18:10)
[2020-08-25] MEDS: methocarbamoL 500 MG TABLET PO SCH ×4 (00:41→18:12)
[2020-08-25] MEDS: SODIUM CHLORIDE FLUSH 0.9% 10 ML SYRINGE IVP SCH ×3 (00:42→18:22)
[2020-08-25] MEDS: D5NS W/20 MEQ KCL 1,000 ML IV SCH ×3 (04:00→12:46)
[2020-08-25] MEDS: metroNIDAZOLE 500 MG/100 ML 500 MG/100 ML BAG IV SCH ×3 (04:30→21:59)
[2020-08-25] MEDS: SODIUM CHLORIDE FLUSH 0.9% 10 ML SYRINGE IVP PRN ×2 (06:09→06:20)
[2020-08-25] MEDS: PANTOPRAZOLE 40 MG TABLET PO SCH (06:11)
[2020-08-25] MEDS: oxyCODONE 5 MG TABLET PO PRN (06:11)
[2020-08-25 06:34] LABS: BASOPHILS % (AUTO) 0.1 %; HCT - HEMATOCRIT 32.8 % (37.0-47.0); HGB - HEMOGLOBIN 10.5 g/dL (12.0-16.0); LYMPHOCYTES # (AUTO) 0.5 10^3/uL (1.5-3.5); LYMPHOCYTES % (AUTO) 2.8 %; MEAN CORPUSCULAR HEMOGLOBIN 28.5 pg (27.0-31.0); MEAN CORPUSCULAR VOLUME 88.9 fL (81.0-99.0); MEAN PLATELET VOLUME 9.9 fL (7.9-10.8); MONOCYTES # (AUTO) 0.9 10^3/uL (0.0-1.0); MONOCYTES % (AUTO) 5.5 %; NEUTROPHILS # (AUTO) 15.3 10^3/uL (1.5-6.6); NEUTROPHILS % (AUTO) 91.2 %; PLT - PLATELET COUNT 267 10^3/uL (130-450); RED BLOOD COUNT 3.69 10^6/uL (4.20-5.40); RED CELL DISTRIBUTION WIDTH 16.6 % (12.0-15.0); WHITE BLOOD COUNT 16.8 x10^3/uL (4.8-10.8)
[2020-08-25 06:44] LABS: ALBUMIN 3.2 g/dL (3.2-5.5); ALBUMIN/GLOBULIN RATIO 1.2 (1.0-2.2); BILIRUBIN,TOTAL 0.5 mg/dL (0.2-1.0); CALCIUM 9.1 mg/dL (8.5-10.3); CREATININE 0.7 mg/dL (0.4-1.0); PHOSPHORUS 2.9 mg/dL (2.5-4.6); POTASSIUM 4.2 mmol/L (3.5-5.0); TOTAL PROTEIN 5.9 g/dL (6.7-8.2)
[2020-08-25] MEDS: DOCUSATE SODIUM 100 MG CAPSULE PO SCH ×2 (08:40→20:52)
[2020-08-25] MEDS: ENOXAPARIN 40 MG/0.4 ML SYRINGE SUBQ SCH (08:40)
[2020-08-25] MEDS: polyethylene glycoL 3350 17 GM PACKET PO SCH ×2 (08:41→20:52)
[2020-08-25] MEDS: CIPROFLOXACIN 400 MG/200 ML 400 MG/200 ML BAG IV SCH ×2 (08:41→20:53)
[2020-08-26] MEDS: METOCLOPRAMIDE 10 MG/2 ML VIAL IVP SCH ×3 (00:08→11:55)
[2020-08-26] MEDS: methocarbamoL 500 MG TABLET PO SCH ×5 (00:08→23:56)
[2020-08-26] MEDS: SODIUM CHLORIDE FLUSH 0.9% 10 ML SYRINGE IVP SCH ×4 (00:08→23:56)
[2020-08-26] MEDS: KETOROLAC 30 MG/ML VIAL IVP SCH ×5 (00:08→23:56)
[2020-08-26] MEDS: D5NS W/20 MEQ KCL 1,000 ML IV SCH (00:09)
[2020-08-26] MEDS: oxyCODONE 5 MG TABLET PO PRN ×3 (00:17→22:25)
[2020-08-26] MEDS: metroNIDAZOLE 500 MG/100 ML 500 MG/100 ML BAG IV SCH ×2 (04:32→12:01)
[2020-08-26] MEDS: HYDROmorphone 0.5 MG/0.5 ML SYRINGE IVP PRN ×2 (06:32→12:45)
[2020-08-26] MEDS: PANTOPRAZOLE 40 MG TABLET PO SCH (06:42)
[2020-08-26 07:29] LABS: ALBUMIN/GLOBULIN RATIO 1.2 (1.0-2.2); BILIRUBIN,TOTAL 0.4 mg/dL (0.2-1.0); CALCIUM 8.6 mg/dL (8.5-10.3); CREATININE 0.7 mg/dL (0.4-1.0); MAGNESIUM 1.7 mg/dL (1.7-2.8); POTASSIUM 3.7 mmol/L (3.5-5.0); TOTAL PROTEIN 5.6 g/dL (6.7-8.2)
[2020-08-26 07:43] LABS: BASOPHILS % (AUTO) 0.2 %; EOSINOPHILS # (AUTO) 0.2 10^3/uL (0.0-0.7); HCT - HEMATOCRIT 31.5 % (37.0-47.0); HGB - HEMOGLOBIN 10.1 g/dL (12.0-16.0); LYMPHOCYTES # (AUTO) 0.4 10^3/uL (1.5-3.5); LYMPHOCYTES % (AUTO) 2.9 %; MEAN CORPUSCULAR HEMOGLOBIN 28.9 pg (27.0-31.0); MEAN CORPUSCULAR HGB CONC 32.1 g/dL (32.0-36.0); MEAN PLATELET VOLUME 10.6 fL (7.9-10.8); MONOCYTES # (AUTO) 0.8 10^3/uL (0.0-1.0); MONOCYTES % (AUTO) 5.5 %; NEUTROPHILS # (AUTO) 13.6 10^3/uL (1.5-6.6); NEUTROPHILS % (AUTO) 88.6 %; PLT - PLATELET COUNT 256 10^3/uL (130-450); WHITE BLOOD COUNT 15.4 x10^3/uL (4.8-10.8)
[2020-08-26] MEDS: CIPROFLOXACIN 400 MG/200 ML 400 MG/200 ML BAG IV SCH (08:00)
[2020-08-26] MEDS: DOCUSATE SODIUM 100 MG CAPSULE PO SCH ×2 (08:01→20:10)
[2020-08-26] MEDS: ENOXAPARIN 40 MG/0.4 ML SYRINGE SUBQ SCH (08:01)
[2020-08-26] MEDS: polyethylene glycoL 3350 17 GM PACKET PO SCH ×2 (08:02→20:14)
[2020-08-26] MEDS ORDERED: MAGNESIUM SULFATE 2 GRAM 2 GM/50 ML BAG IV ONE (12:05)
--- NOTE | 2020-08-26 12:15 | PROVIDER PROGRESS NOTE ---
Progress Note Subjective Postoperative day #1 status post below listed procedure. Positive bowel function. Positive trial of void. Pain controlled. Pre-Op Diagnosis: Hx of rectal ca; history of short course neoadj chemorad; s/p LAR & DLI Procedure Performed: 1. Ileostomy takedown 2. Small bowel resection 3. Eeff-sk-ppez functional end-to-end antiperistaltic anastomosis stapled with primary enterotomy closure to layers 4. Parastomal hernia repair 5. Drain placement 6. adhesiolysis Post Op Diagnosis: Same; viable enteroenterostomy no complication. Adhesions. Objective Afebrile hemodynamically acceptable General Appearance: positive: No acute distress Eyes Bilateral: positive: Normal inspection ENT: positive: ENT inspection nml Neck: positive: Nml inspection Respiratory: positive: Chest non-tender, No respiratory distress, Breath sounds nml. negative: Wheezes, Rales, Rhonchi Cardiovascular: positive: Regular rate & rhythm Abdomen: positive: No distention, Other. negative: Guarding, Rebound Extremities: positive: Non-tender, Full ROM, Nml appearance Neurologic/Psychiatric: positive: Oriented x3, CN's nml (2-12) Abdominal Exam: Inspection - Erythema [none]; Scars historic ileostomy site dressed with packing intact Auscultation - [Normoactive bowel sounds] Palpation - Hernias [none]; Fluctuance [none]; Induration [none]; Scar [N/A] Appropriately tender to palpation. Impression/Plan Postoperative day #1 status post above listed procedure. Advance diet. Awaiting full return of bowel function. Daily wound care. (1) GI - IVF, bowel regimen, advance diet as tolerated. GI ppx. [Anticipate ileus]. Opiate sparring analgesia. (2) SURGERY - continue Antonio drain, continue daily packing changes. (3) Renal/Lytes - continue IVF. Renal indices within normal limits. (4) Respiratory - O2 as necessary. Continue IS. (5) Heme - Will continue with DVT ppx. H/H stable. (6) Cardiovascular - HD acceptable. (7) Neuro - Opiate sparring analgesia. Antispasmodics with Robaxin. (8) Immune/Infectious Disease - perioperative antibiotics 24 hours then DC.
--- NOTE | 2020-08-26 12:35 | PROVIDER PROGRESS NOTE ---
Progress Note Subjective Postoperative day #2 status post below listed procedure. Positive bowel function. Positive trial of void. Pain controlled. Patient with no further concerning episodes of bradycardia for which the patient has a longstanding history. Seen by hospital service. No significant EKG changes other than sinus bradycardia. Troponin negative. Pre-Op Diagnosis: Hx of rectal ca; history of short course neoadj chemorad; s/p LAR & DLI Procedure Performed: 1. Ileostomy takedown 2. Small bowel resection 3. Xkyl-hj-tcbp functional end-to-end antiperistaltic anastomosis stapled with primary enterotomy closure to layers 4. Parastomal hernia repair 5. Drain placement 6. adhesiolysis Post Op Diagnosis: Same; viable enteroenterostomy no complication. Adhesions. Objective Afebrile hemodynamically acceptable General Appearance: positive: No acute distress Eyes Bilateral: positive: Normal inspection ENT: positive: ENT inspection nml Neck: positive: Nml inspection Respiratory: positive: Chest non-tender, No respiratory distress, Breath sounds nml. negative: Wheezes, Rales, Rhonchi Cardiovascular: positive: Regular rate & rhythm Abdomen: positive: No distention, Other. negative: Guarding, Rebound Extremities: positive: Non-tender, Full ROM, Nml appearance Neurologic/Psychiatric: positive: Oriented x3, CN's nml (2-12) Abdominal Exam: Inspection - Erythema none; Scars historic ileostomy site dressed with packing intact Auscultation -normoactive bowel sounds Palpation - Hernias none; Fluctuance none; Induration none; Scar N/A Appropriately tender to palpation. Impression/Plan Postoperative day #2 status post above listed procedure. Advance diet. Awaiting full return of bowel function. Daily wound care. (1) GI - IVF, bowel regimen, advance diet as tolerated. GI ppx. Resolving ileus. Opiate sparring analgesia. (2) SURGERY - continue Antonio drain, continue daily packing changes. (3) Renal/Lytes - continue IVF. Renal indices within normal limits. (4) Respiratory - O2 as necessary. Continue IS. (5) Heme - Will continue with DVT ppx. H/H stable. (6) Cardiovascular - HD acceptable. (7) Neuro - Opiate sparring analgesia. Antispasmodics with Robaxin. (8) Immune/Infectious Disease - DC abx. (9) PT OT (10) DISCHARGE PLANNING - likely in the next 24 to 48 hours. Will need home wound care for packing change.
[2020-08-26] MEDS ORDERED: POTASSIUM CHLOR 10 MEQ/100 ML 10 MEQ/100 ML BAG IV SCH (13:00)
[2020-08-26] MEDS ORDERED: POTASSIUM CHLORIDE 20 MEQ/15 ML UDC PO ONE (13:00)
[2020-08-26] MEDS ORDERED: POTASSIUM PHOSPHATE 15 MMOL in SODIUM CHLORIDE 0.9% 250 ML IV ONE (14:00)
[2020-08-27] MEDS: methocarbamoL 500 MG TABLET PO SCH ×4 (05:34→23:48)
[2020-08-27] MEDS: KETOROLAC 30 MG/ML VIAL IVP SCH ×2 (05:34→11:44)
[2020-08-27] MEDS: PANTOPRAZOLE 40 MG TABLET PO SCH ×2 (05:35→17:33)
[2020-08-27 05:45] LABS: BASOPHILS % (AUTO) 0.1 %; EOSINOPHILS # (AUTO) 0.2 10^3/uL (0.0-0.7); EOSINOPHILS % (AUTO) 1.3 %; HCT - HEMATOCRIT 31.1 % (37.0-47.0); HGB - HEMOGLOBIN 10.1 g/dL (12.0-16.0); LYMPHOCYTES # (AUTO) 0.4 10^3/uL (1.5-3.5); LYMPHOCYTES % (AUTO) 2.6 %; MEAN CORPUSCULAR HEMOGLOBIN 29.1 pg (27.0-31.0); MEAN CORPUSCULAR HGB CONC 32.5 g/dL (32.0-36.0); MEAN CORPUSCULAR VOLUME 89.6 fL (81.0-99.0); MEAN PLATELET VOLUME 10.4 fL (7.9-10.8); MONOCYTES # (AUTO) 0.8 10^3/uL (0.0-1.0); MONOCYTES % (AUTO) 5.8 %; NEUTROPHILS # (AUTO) 12.7 10^3/uL (1.5-6.6); NEUTROPHILS % (AUTO) 89.8 %; PLT - PLATELET COUNT 248 10^3/uL (130-450); RED BLOOD COUNT 3.47 10^6/uL (4.20-5.40); RED CELL DISTRIBUTION WIDTH 17.2 % (12.0-15.0); WHITE BLOOD COUNT 14.2 x10^3/uL (4.8-10.8)
[2020-08-27 05:58] LABS: ALBUMIN 2.8 g/dL (3.2-5.5); BILIRUBIN,TOTAL 0.6 mg/dL (0.2-1.0); CREATININE 0.7 mg/dL (0.4-1.0); POTASSIUM 4.1 mmol/L (3.5-5.0); TOTAL PROTEIN 5.6 g/dL (6.7-8.2)
[2020-08-27] MEDS: polyethylene glycoL 3350 17 GM PACKET PO SCH ×2 (08:07→21:12)
[2020-08-27] MEDS: oxyCODONE 5 MG TABLET PO PRN (08:08)
[2020-08-27] MEDS: SODIUM CHLORIDE FLUSH 0.9% 10 ML SYRINGE IVP SCH ×2 (08:08→16:05)
[2020-08-27] MEDS: DOCUSATE SODIUM 100 MG CAPSULE PO SCH ×2 (10:21→21:12)
[2020-08-27] MEDS: ENOXAPARIN 40 MG/0.4 ML SYRINGE SUBQ SCH (10:21)
[2020-08-27] MEDS ORDERED: MAGNESIUM HYDROXIDE 2,400 MG/30 ML UDC PO ONE (13:07)
[2020-08-27] MEDS ORDERED: SODIUM PHOSPHATE 20 MMOL in SODIUM CHLORIDE 0.9% 250 ML IV ONE ×2 (13:31→15:00)
--- NOTE | 2020-08-27 14:45 | PROVIDER PROGRESS NOTE ---
Progress Note Subjective Postoperative day #3 status post below listed procedure. Positive bowel function however more distended today with early satiety and abdominal distention together with nausea. Positive trial of void. Pain controlled. Patient with no further concerning episodes of bradycardia for which the patient has a longstanding history. Pre-Op Diagnosis: Hx of rectal ca; history of short course neoadj chemorad; s/p LAR & DLI Procedure Performed: 1. Ileostomy takedown 2. Small bowel resection 3. [id number] functional end-to-end antiperistaltic anastomosis stapled with primary enterotomy closure to layers 4. Parastomal hernia repair 5. Drain placement 6. adhesiolysis Post Op Diagnosis: Same; viable enteroenterostomy no complication. Adhesions. Objective Afebrile hemodynamically acceptable General Appearance: positive: No acute distress Eyes Bilateral: positive: Normal inspection ENT: positive: ENT inspection nml Neck: positive: Nml inspection Respiratory: positive: Chest non-tender, No respiratory distress, Breath sounds nml. negative: Wheezes, Rales, Rhonchi Cardiovascular: positive: Regular rate & rhythm Extremities: positive: Non-tender, Full ROM, Nml appearance Neurologic/Psychiatric: positive: Oriented x3, CN's nml (2-12) Abdominal Exam: Inspection - Erythema none; Scars historic ileostomy site dressed with packing intact Auscultation -normoactive bowel sounds Palpation - Hernias none; Fluctuance none; Induration none; Scar N/A Appropriately tender to palpation. More distended. No rebound no guarding. Impression/Plan Postoperative day #3 status post above listed procedure. Patient has signs of ileus. May need nasogastric tube. Regressed diet. Resume antiemetics. (1) GI - IVF, bowel regimen, regress diet secondary to ileus. May need nasogastric tube for decompression. GI ppx. Resolving ileus. Opiate sparring analgesia. (2) SURGERY - continue Antonio drain, continue daily packing changes. (3) Renal/Lytes - continue IVF. Renal indices within normal limits. (4) Respiratory - O2 as necessary. Continue IS. (5) Heme - Will continue with DVT ppx. H/H stable. (6) Cardiovascular - HD acceptable. (7) Neuro - Opiate sparring analgesia. Antispasmodics with Robaxin. (8) Immune/Infectious Disease - DC abx. (9) PT OT (10) DISCHARGE PLANNING - Defer planning at this time secondary to an ileus awaiting full resumption of bowel function. Ultimately, will need home wound care for packing change.
[2020-08-27] MEDS ORDERED: METOCLOPRAMIDE 10 MG/2 ML VIAL IVP SCH (15:00)
[2020-08-27] MEDS: SODIUM CHLORIDE FLUSH 0.9% 10 ML SYRINGE IVP PRN ×2 (17:58→21:30)
[2020-08-27] MEDS: METOCLOPRAMIDE 10 MG/2 ML VIAL IVP SCH (21:30)
[2020-08-27] MEDS: PHENOL THROAT SPRAY 177 ML MM PRN (22:40)
[2020-08-28] MEDS: SODIUM CHLORIDE FLUSH 0.9% 10 ML SYRINGE IVP SCH ×4 (01:20→23:41)
[2020-08-28] MEDS: METOCLOPRAMIDE 10 MG/2 ML VIAL IVP SCH ×4 (04:18→20:58)
[2020-08-28] MEDS: methocarbamoL 500 MG TABLET PO SCH ×4 (05:43→23:41)
[2020-08-28] MEDS: PANTOPRAZOLE 40 MG TABLET PO SCH ×2 (05:43→16:03)
[2020-08-28 06:12] LABS: BASOPHILS % (AUTO) 0.1 %; HCT - HEMATOCRIT 40.2 % (37.0-47.0); HGB - HEMOGLOBIN 12.8 g/dL (12.0-16.0); LYMPHOCYTES % (AUTO) 1.7 %; MEAN CORPUSCULAR HEMOGLOBIN 28.3 pg (27.0-31.0); MEAN CORPUSCULAR HGB CONC 31.8 g/dL (32.0-36.0); MEAN CORPUSCULAR VOLUME 88.9 fL (81.0-99.0); MEAN PLATELET VOLUME 10.3 fL (7.9-10.8); MONOCYTES % (AUTO) 3.6 %; PLT - PLATELET COUNT 390 10^3/uL (130-450); RED BLOOD COUNT 4.52 10^6/uL (4.20-5.40); RED CELL DISTRIBUTION WIDTH 16.8 % (12.0-15.0); WHITE BLOOD COUNT 21.7 x10^3/uL (4.8-10.8)
[2020-08-28 06:15] LABS: ABNORMAL LYMPHS % (MANUAL) 0 %; BAND NEUTROPHILS % (MANUAL) 0 %; LYMPHOCYTES % (MANUAL) 0 %
[2020-08-28 06:28] LABS: ALBUMIN 3.3 g/dL (3.2-5.5); BILIRUBIN,TOTAL 0.6 mg/dL (0.2-1.0); CALCIUM 9.8 mg/dL (8.5-10.3); CREATININE 0.8 mg/dL (0.4-1.0); MAGNESIUM 2.1 mg/dL (1.7-2.8); PHOSPHORUS 3.1 mg/dL (2.5-4.6); POTASSIUM 4.5 mmol/L (3.5-5.0); TOTAL PROTEIN 6.5 g/dL (6.7-8.2)
[2020-08-28] MEDS: D5NS W/20 MEQ KCL 1,000 ML IV SCH ×2 (06:32→16:02)
[2020-08-28 06:34] LABS: MONOCYTES # (MANUAL) 0.9 10^3/uL (0.0-1.0); NEUTROPHILS # (MANUAL) 20.8 10^3/uL (1.5-6.6)
[2020-08-28 06:35] LABS: DIFFERENTIAL COMMENT MANUAL DIFFERENTIAL; PLATELET ESTIMATE, MANUAL NORMAL (130-450,000) (NORMAL); PLATELET MORPHOLOGY NORMAL APPEARANCE (NORMAL); RBC MORPHOLOGY (MULTIPLE) NORMAL APPEARANCE (NORMAL); WBC MORPHOLOGY (MULTIPLE) NORMAL APPEARANCE (NORMAL)
--- NOTE | 2020-08-28 08:21 | XRAY Report ---
PROCEDURE: Chest for Line Placement INDICATIONS: NG tube placement TECHNIQUE: One view of the chest was acquired. COMPARISON: Prior recent chest CT 03/31/2020 reviewed. FINDINGS: Surgical changes and devices: Esophagogastric tube positioning normal.. Lungs and pleura: No pleural effusions or pneumothorax. Lungs are clear, considering reduced inspir atory volume. Mediastinum: Mediastinal contours appear normal. Heart size is normal. Bones and chest wall: No suspicious bony lesions. Overlying soft tissues appear unremarkable. IMPRESSION: Reduced inspiratory volume causes crowding of the bronchovascular markings at each lung base. Esophag ogastric tube appears in normal position with side-port below the EG junction. Reviewed by: Ricardo Batres MD on 08/28/2020 8:20 AM PDT Approved by: Ricardo Batres MD on 08/28/2020 8:20 AM PDT Station ID: [id number]
[2020-08-28] MEDS: polyethylene glycoL 3350 17 GM PACKET PO SCH ×2 (09:18→20:47)
[2020-08-28] MEDS: DOCUSATE SODIUM 100 MG CAPSULE PO SCH ×2 (09:18→20:47)
[2020-08-28] MEDS: oxyCODONE 5 MG TABLET PO PRN (09:18)
[2020-08-28] MEDS: SALINE ENEMA 133 ML BOTTLE RC SCH (09:19)
[2020-08-28] MEDS: ENOXAPARIN 40 MG/0.4 ML SYRINGE SUBQ SCH (09:19)
[2020-08-28] MEDS: PHENOL THROAT SPRAY 177 ML MM PRN (12:55)
--- NOTE | 2020-08-28 15:48 | PROVIDER PROGRESS NOTE ---
Progress Note Subjective Postoperative day #4 status post below listed procedure. Placed for an NG tube secondary to emesis overnight and worsening distention. Patient with no further concerning episodes of bradycardia for which the patient has a longstanding history. Pre-Op Diagnosis: Hx of rectal ca; history of short course neoadj chemorad; s/p LAR & DLI Procedure Performed: 1. Ileostomy takedown 2. Small bowel resection 3. [id number] functional end-to-end antiperistaltic anastomosis stapled with primary enterotomy closure to layers 4. Parastomal hernia repair 5. Drain placement 6. adhesiolysis Post Op Diagnosis: Same; viable enteroenterostomy no complication. Adhesions. Objective Afebrile hemodynamically acceptable General Appearance: positive: No acute distress Eyes Bilateral: positive: Normal inspection ENT: positive: ENT inspection nml Neck: positive: Nml inspection Respiratory: positive: Chest non-tender, No respiratory distress, Breath sounds nml. negative: Wheezes, Rales, Rhonchi Cardiovascular: positive: Regular rate & rhythm Extremities: positive: Non-tender, Full ROM, Nml appearance Neurologic/Psychiatric: positive: Oriented x3, CN's nml (2-12) Abdominal Exam: Inspection - Erythema none; Scars historic ileostomy site dressed with packing intact Auscultation -normoactive bowel sounds Palpation - Hernias none; Fluctuance none; Induration none; Scar N/A Appropriately tender to palpation. More distended. No rebound no guarding. Impression/Plan Postoperative day #4 status post above listed procedure. Patient has signs of ileus. Continue nasogastric tube. Regressed diet. Resume antiemetics. (1) GI - IVF, bowel regimen, regress diet secondary to ileus. Nasogastric tube for decompression. GI ppx. Resolving ileus. Opiate sparring analgesia. (2) SURGERY - continue Antonio drain, continue daily packing changes. (3) Renal/Lytes - continue IVF. Renal indices within normal limits. (4) Respiratory - O2 as necessary. Continue IS. (5) Heme - Will continue with DVT ppx. H/H stable. (6) Cardiovascular - HD acceptable. (7) Neuro - Opiate sparring analgesia. Antispasmodics with Robaxin. (8) Immune/Infectious Disease - DC abx. (9) PT OT (10) DISCHARGE PLANNING - Defer planning at this time secondary to an ileus awaiting full resumption of bowel function. Ultimately, will need home wound care for packing change.
[2020-08-28] MEDS ORDERED: BENZOCAINE/MENTHOL LOZENGE MM PRN (20:32)
[2020-08-29] MEDS: BUTALB/ACETAM/CAFF 50/325/40MG TABLET PO PRN (01:02)
[2020-08-29] MEDS: D5NS W/20 MEQ KCL 1,000 ML IV SCH ×3 (01:07→20:41)
[2020-08-29] MEDS: METOCLOPRAMIDE 10 MG/2 ML VIAL IVP SCH ×4 (04:16→20:46)
[2020-08-29] MEDS: methocarbamoL 500 MG TABLET PO SCH ×4 (06:31→23:29)
[2020-08-29] MEDS: PANTOPRAZOLE 40 MG TABLET PO SCH ×2 (06:31→15:56)
[2020-08-29] MEDS: ENOXAPARIN 40 MG/0.4 ML SYRINGE SUBQ SCH (10:23)
[2020-08-29] MEDS: DOCUSATE SODIUM 100 MG CAPSULE PO SCH ×2 (10:23→20:41)
[2020-08-29] MEDS: SODIUM CHLORIDE FLUSH 0.9% 10 ML SYRINGE IVP SCH ×3 (10:23→23:29)
[2020-08-29] MEDS: SALINE ENEMA 133 ML BOTTLE RC SCH (10:24)
[2020-08-29] MEDS: polyethylene glycoL 3350 17 GM PACKET PO SCH ×2 (10:36→20:41)
[2020-08-29 10:47] LABS: BASOPHILS % (AUTO) 0.1 %; EOSINOPHILS # (AUTO) 0.1 10^3/uL (0.0-0.7); EOSINOPHILS % (AUTO) 0.5 %; HCT - HEMATOCRIT 31.5 % (37.0-47.0); HGB - HEMOGLOBIN 10.3 g/dL (12.0-16.0); LYMPHOCYTES # (AUTO) 0.4 10^3/uL (1.5-3.5); LYMPHOCYTES % (AUTO) 2.7 %; MEAN CORPUSCULAR HEMOGLOBIN 28.9 pg (27.0-31.0); MEAN CORPUSCULAR HGB CONC 32.7 g/dL (32.0-36.0); MEAN CORPUSCULAR VOLUME 88.5 fL (81.0-99.0); MEAN PLATELET VOLUME 10.1 fL (7.9-10.8); MONOCYTES % (AUTO) 6.1 %; NEUTROPHILS # (AUTO) 14.3 10^3/uL (1.5-6.6); NEUTROPHILS % (AUTO) 90.2 %; PLT - PLATELET COUNT 340 10^3/uL (130-450); RED BLOOD COUNT 3.56 10^6/uL (4.20-5.40); RED CELL DISTRIBUTION WIDTH 16.9 % (12.0-15.0); WHITE BLOOD COUNT 15.8 x10^3/uL (4.8-10.8)
[2020-08-29 11:00] LABS: MAGNESIUM 1.8 mg/dL (1.7-2.8); PHOSPHORUS 2.2 mg/dL (2.5-4.6)
[2020-08-29 11:01] LABS: ALBUMIN 2.7 g/dL (3.2-5.5); ALBUMIN/GLOBULIN RATIO 0.9 (1.0-2.2); BILIRUBIN,TOTAL 0.4 mg/dL (0.2-1.0); CALCIUM 9.2 mg/dL (8.5-10.3); CREATININE 0.8 mg/dL (0.4-1.0); POTASSIUM 3.9 mmol/L (3.5-5.0); TOTAL PROTEIN 5.6 g/dL (6.7-8.2)
[2020-08-29] MEDS ORDERED: MIN OIL/DIMETHICON/COCONUT OIL 92 GM TUBE TOP PRN (11:13)
--- NOTE | 2020-08-29 15:32 | PROVIDER PROGRESS NOTE ---
Progress Note Subjective Postoperative day #5 status post below listed procedure. Patient self discontinued nasogastric tube. Continues with bowel function. Abdominal distention improved. Patient with no further concerning episodes of bradycardia for which the patient has a longstanding history. Pre-Op Diagnosis: Hx of rectal ca; history of short course neoadj chemorad; s/p LAR & DLI Procedure Performed: 1. Ileostomy takedown 2. Small bowel resection 3. [id number] functional end-to-end antiperistaltic anastomosis stapled with primary enterotomy closure to layers 4. Parastomal hernia repair 5. Drain placement 6. adhesiolysis Post Op Diagnosis: Same; viable enteroenterostomy no complication. Adhesions. Objective Afebrile hemodynamically acceptable General Appearance: positive: No acute distress Eyes Bilateral: positive: Normal inspection ENT: positive: ENT inspection nml Neck: positive: Nml inspection Respiratory: positive: Chest non-tender, No respiratory distress, Breath sounds nml. negative: Wheezes, Rales, Rhonchi Cardiovascular: positive: Regular rate & rhythm Extremities: positive: Non-tender, Full ROM, Nml appearance Neurologic/Psychiatric: positive: Oriented x3, CN's nml (2-12) Abdominal Exam: Inspection - Erythema none; Scars historic ileostomy site dressed with packing intact Auscultation -normoactive bowel sounds Palpation - Hernias none; Fluctuance none; Induration none; Scar N/A Appropriately tender to palpation. Less distended. No rebound no guarding. Impression/Plan Postoperative day #5 status post above listed procedure. Patient has signs of ileus. Slowly advance diet. Resumed antiemetics. (1) GI - IVF, bowel regimen, regress diet secondary to ileus. GI ppx. Resolving ileus. Opiate sparring analgesia. If fails to resolve will consider CT scan to evaluate. (2) SURGERY - continue Antonio drain, continue daily packing changes. (3) Renal/Lytes - continue IVF. Renal indices within normal limits. (4) Respiratory - O2 as necessary. Continue IS. (5) Heme - Will continue with DVT ppx. H/H stable. (6) Cardiovascular - HD acceptable. (7) Neuro - Opiate sparring analgesia. Antispasmodics with Robaxin. (8) Immune/Infectious Disease - DC abx. (9) PT OT (10) DISCHARGE PLANNING - The patient continues to improve [place] discharge in the next 24 to 48 hours.
[2020-08-30] MEDS: METOCLOPRAMIDE 10 MG/2 ML VIAL IVP SCH ×4 (04:52→23:06)
[2020-08-30 05:24] LABS: BASOPHILS % (AUTO) 0.2 %; EOSINOPHILS # (AUTO) 0.2 10^3/uL (0.0-0.7); EOSINOPHILS % (AUTO) 1.2 %; HCT - HEMATOCRIT 32.9 % (37.0-47.0); HGB - HEMOGLOBIN 10.8 g/dL (12.0-16.0); LYMPHOCYTES # (AUTO) 0.6 10^3/uL (1.5-3.5); LYMPHOCYTES % (AUTO) 4.8 %; MEAN CORPUSCULAR HGB CONC 32.8 g/dL (32.0-36.0); MEAN CORPUSCULAR VOLUME 88.2 fL (81.0-99.0); MEAN PLATELET VOLUME 9.9 fL (7.9-10.8); MONOCYTES % (AUTO) 7.8 %; NEUTROPHILS # (AUTO) 11.3 10^3/uL (1.5-6.6); NEUTROPHILS % (AUTO) 85.3 %; PLT - PLATELET COUNT 380 10^3/uL (130-450); RED BLOOD COUNT 3.73 10^6/uL (4.20-5.40); RED CELL DISTRIBUTION WIDTH 16.8 % (12.0-15.0); WHITE BLOOD COUNT 13.3 x10^3/uL (4.8-10.8)
[2020-08-30 05:36] LABS: ALBUMIN 2.9 g/dL (3.2-5.5); BILIRUBIN,TOTAL 0.5 mg/dL (0.2-1.0); CREATININE 0.8 mg/dL (0.4-1.0); MAGNESIUM 1.7 mg/dL (1.7-2.8); POTASSIUM 3.7 mmol/L (3.5-5.0); TOTAL PROTEIN 5.7 g/dL (6.7-8.2)
[2020-08-30] MEDS: methocarbamoL 500 MG TABLET PO SCH ×3 (06:15→18:07)
[2020-08-30] MEDS: PANTOPRAZOLE 40 MG TABLET PO SCH ×2 (06:16→16:05)
[2020-08-30] MEDS: D5NS W/20 MEQ KCL 1,000 ML IV SCH ×2 (06:42→16:16)
[2020-08-30] MEDS: polyethylene glycoL 3350 17 GM PACKET PO SCH ×2 (09:56→21:17)
[2020-08-30] MEDS: ENOXAPARIN 40 MG/0.4 ML SYRINGE SUBQ SCH (09:56)
[2020-08-30] MEDS: SALINE ENEMA 133 ML BOTTLE RC SCH (09:56)
[2020-08-30] MEDS: SODIUM CHLORIDE FLUSH 0.9% 10 ML SYRINGE IVP SCH ×2 (09:57→16:52)
[2020-08-30] MEDS: DOCUSATE SODIUM 100 MG CAPSULE PO SCH ×2 (09:57→21:17)
[2020-08-30] MEDS ORDERED: IOPAMIDOL-300 100 ML VIAL ONE (14:52)
[2020-08-30] MEDS ORDERED: IOPAMIDOL-300 50 ML VIAL ONE (14:52)
--- NOTE | 2020-08-30 20:23 | CT Report ---
PROCEDURE: Abdomen/Pelvis W INDICATIONS: partial SBO/ileus CONTRAST: IV CONTRAST: Isovue 300 ml: 100 PO CONTRAST: Isovue 300 ml50 TECHNIQUE: After the administration of IV contrast, 5 mm thick sections acquired from the diaphragms to the symp hysis. 5 mm thick coronal and sagittal reformats were acquired. For radiation dose reduction, the f ollowing was used: automated exposure control, adjustment of mA and/or kV according to patient size. COMPARISON: None. FINDINGS: ABDOMEN: Lung bases: Scattered subsegmental scarring/atelectasis. No acute consolidation. Heart: Enlarged Liver: Hepatic steatosis. Hepatic foci statistically representing cysts although technically indeterm inate due to small size. Gallbladder: Contracted otherwise unremarkable Bile ducts: Normal. Pancreas: Normal. Spleen: Normal. Adrenals: Normal. Kidneys: Simple appearing left renal cyst. There are also simple appearing right renal cysts, and a p ossible ruptured right lateral cortical cyst with adjacent perinephric fluid/edema. No hydronephrosis . Subcentimeter renal foci which are statistically cysts, however too to characterize accurately and therefore technically indeterminate. Stomach and bowel: Small hiatal hernia. Postoperative changes and a abdominal surgical drain is noted . Surgical anastomosis is seen in the anterior right pelvis. There are numerous dilated bowel loops w ith scattered air-fluid levels. Rectal surgical anastomosis also noted. The exact transition point is unclear. Other: No free fluid or air. Abdominal nodes: Normal. Aorta: Normal. IVC: Normal. Ventral wall: Normal. PELVIS: Bladder: Largely obscured by streak artifact from bilateral hip arthroplasties. Pelvic nodes: Normal. Inguinal: No hernia. Bones: No vertebral body compression fracture. No suspicious bone lesion. Diffuse spondylitic changes IMPRESSION: Bowel obstruction. The exact transition point is unclear. Small hiatal hernia Possibly ruptured right lateral cortical renal cyst with adjacent perinephric fluid. Hepatic steatosis Additional chronic and incidental findings as above. Reviewed by: Angel Byrd MD on 08/30/2020 8:22 PM PDT Approved by: Angel Byrd MD on 08/30/2020 8:22 PM PDT Station ID: [id number]
[2020-08-30] MEDS ORDERED: IOPAMIDOL-300 100 ML VIAL IVP ONE (21:15)
[2020-08-30] MEDS ORDERED: IOPAMIDOL-300 50 ML VIAL PO ONE (21:16)
[2020-08-31] MEDS: methocarbamoL 500 MG TABLET PO SCH ×5 (00:07→23:48)
[2020-08-31] MEDS: SODIUM CHLORIDE FLUSH 0.9% 10 ML SYRINGE IVP SCH ×4 (00:07→23:48)
[2020-08-31] MEDS: D5NS W/20 MEQ KCL 1,000 ML IV SCH (02:44)
[2020-08-31] MEDS: METOCLOPRAMIDE 10 MG/2 ML VIAL IVP SCH ×4 (04:08→20:59)
[2020-08-31 04:21] LABS: BASOPHILS % (AUTO) 0.1 %; EOSINOPHILS # (AUTO) 0.1 10^3/uL (0.0-0.7); EOSINOPHILS % (AUTO) 0.4 %; HCT - HEMATOCRIT 35.1 % (37.0-47.0); HGB - HEMOGLOBIN 11.3 g/dL (12.0-16.0); LYMPHOCYTES # (AUTO) 0.6 10^3/uL (1.5-3.5); LYMPHOCYTES % (AUTO) 3.7 %; MEAN CORPUSCULAR HEMOGLOBIN 28.5 pg (27.0-31.0); MEAN CORPUSCULAR HGB CONC 32.2 g/dL (32.0-36.0); MEAN CORPUSCULAR VOLUME 88.6 fL (81.0-99.0); MEAN PLATELET VOLUME 9.7 fL (7.9-10.8); MONOCYTES # (AUTO) 1.1 10^3/uL (0.0-1.0); MONOCYTES % (AUTO) 6.5 %; NEUTROPHILS # (AUTO) 14.5 10^3/uL (1.5-6.6); NEUTROPHILS % (AUTO) 88.6 %; PLT - PLATELET COUNT 405 10^3/uL (130-450); RED BLOOD COUNT 3.96 10^6/uL (4.20-5.40); RED CELL DISTRIBUTION WIDTH 16.8 % (12.0-15.0); WHITE BLOOD COUNT 16.4 x10^3/uL (4.8-10.8)
[2020-08-31 04:34] LABS: ALBUMIN 2.9 g/dL (3.2-5.5); ALBUMIN/GLOBULIN RATIO 1.1 (1.0-2.2); BILIRUBIN,TOTAL 0.5 mg/dL (0.2-1.0); CREATININE 0.7 mg/dL (0.4-1.0); MAGNESIUM 1.6 mg/dL (1.7-2.8); PHOSPHORUS 2.1 mg/dL (2.5-4.6); POTASSIUM 3.4 mmol/L (3.5-5.0); TOTAL PROTEIN 5.6 g/dL (6.7-8.2)
[2020-08-31] MEDS: PANTOPRAZOLE 40 MG TABLET PO SCH ×2 (06:03→16:12)
[2020-08-31] MEDS: SALINE ENEMA 133 ML BOTTLE RC SCH (10:22)
[2020-08-31] MEDS: ENOXAPARIN 40 MG/0.4 ML SYRINGE SUBQ SCH (10:23)
[2020-08-31] MEDS: DOCUSATE SODIUM 100 MG CAPSULE PO SCH ×2 (10:23→20:59)
[2020-08-31] MEDS: polyethylene glycoL 3350 17 GM PACKET PO SCH ×2 (10:23→20:59)
--- NOTE | 2020-08-31 13:11 | PROVIDER PROGRESS NOTE ---
Progress Note Subjective Postoperative day #6 status post below listed procedure. Patient is a 85-year-old female as stated postoperative day 6 who has modest improvement in constellation of symptoms with minimal improvement in gastrointestinal complaints. Continues with bowel function. Abdominal distention improved. Patient with no further concerning episodes of bradycardia for which the patient has a longstanding history. Pre-Op Diagnosis: Hx of rectal ca; history of short course neoadj chemorad; s/p LAR & DLI Procedure Performed: 1. Ileostomy takedown 2. Small bowel resection 3. Goij-bw-tuxy functional end-to-end antiperistaltic anastomosis stapled with primary enterotomy closure to layers 4. Parastomal hernia repair 5. Drain placement 6. adhesiolysis Post Op Diagnosis: Same; viable enteroenterostomy no complication. Adhesions. Objective Afebrile hemodynamically acceptable General Appearance: positive: No acute distress Eyes Bilateral: positive: Normal inspection ENT: positive: ENT inspection nml Neck: positive: Nml inspection Respiratory: positive: Chest non-tender, No respiratory distress, Breath sounds nml. negative: Wheezes, Rales, Rhonchi Cardiovascular: positive: Regular rate & rhythm Extremities: positive: Non-tender, Full ROM, Nml appearance Neurologic/Psychiatric: positive: Oriented x3, CN's nml (2-12) Abdominal Exam: Inspection - Erythema none; Scars historic ileostomy site dressed with packing intact Auscultation - normoactive bowel sounds Palpation - Hernias none; Fluctuance none; Induration none; Scar N/A Appropriately tender to palpation. Less distended. No rebound no guarding. Impression/Plan Postoperative day #6 status post above listed procedure. Patient has signs of ileus, slowly resolving. Cautiously advance diet. Resumed antiemetics. (1) GI - IVF, bowel regimen, cautiously advance diet diet secondary to ileus. GI ppx. Resolving ileus. Opiate sparring analgesia. CT scan reviewed, see results below. (2) SURGERY - continue Antonio drain, continue daily packing changes. CT scan reviewed, see results below. (3) Renal/Lytes - continue IVF. Renal indices within normal limits. (4) Respiratory - O2 as necessary. Continue IS. (5) Heme - Will continue with DVT ppx. H/H stable. (6) Cardiovascular - HD acceptable. (7) Neuro - Opiate sparring analgesia. Antispasmodics with Robaxin. (8) Immune/Infectious Disease - DC abx. (9) PT OT (10) DISCHARGE PLANNING - The patient continues to improve and will likely discharge in the next [address] abdomen pelvis IMPRESSION: Bowel obstruction. The exact transition point is unclear. Scattered air-fluid levels with numerous dilated bowel loops. Possible ruptured right lateral cortical renal cyst with adjacent perinephric fluid. Hepatic steatosis. Additional chronic and incidental findings as above. My review reveals resolving ileus with no specific anatomic transition point to indicate bowel obstruction. Anastomoses intact and patent. No concerns for anastomotic compromise or other complication.
[2020-08-31] MEDS ORDERED: MAGNESIUM SULFATE 2 GRAM 2 GM/50 ML BAG IV ONE (14:00)
[2020-08-31] MEDS ORDERED: POTASSIUM PHOSPHATE 15 MMOL in SODIUM CHLORIDE 0.9% 250 ML IV ONE (14:30)
[2020-08-31] MEDS: SODIUM CHLORIDE FLUSH 0.9% 10 ML SYRINGE IVP PRN (21:00)
[2020-09-01] MEDS: METOCLOPRAMIDE 10 MG/2 ML VIAL IVP SCH ×2 (04:41→09:49)
[2020-09-01 05:05] LABS: BASOPHILS % (AUTO) 0.1 %; EOSINOPHILS # (AUTO) 0.1 10^3/uL (0.0-0.7); EOSINOPHILS % (AUTO) 0.8 %; HCT - HEMATOCRIT 32.4 % (37.0-47.0); HGB - HEMOGLOBIN 10.5 g/dL (12.0-16.0); LYMPHOCYTES # (AUTO) 0.6 10^3/uL (1.5-3.5); MEAN CORPUSCULAR HEMOGLOBIN 28.6 pg (27.0-31.0); MEAN CORPUSCULAR HGB CONC 32.4 g/dL (32.0-36.0); MEAN CORPUSCULAR VOLUME 88.3 fL (81.0-99.0); MONOCYTES % (AUTO) 6.3 %; NEUTROPHILS # (AUTO) 13.5 10^3/uL (1.5-6.6); NEUTROPHILS % (AUTO) 88.1 %; PLT - PLATELET COUNT 398 10^3/uL (130-450); RED BLOOD COUNT 3.67 10^6/uL (4.20-5.40); RED CELL DISTRIBUTION WIDTH 16.9 % (12.0-15.0); WHITE BLOOD COUNT 15.4 x10^3/uL (4.8-10.8)
[2020-09-01 05:14] LABS: ALBUMIN 2.7 g/dL (3.2-5.5); ALBUMIN/GLOBULIN RATIO 1.1 (1.0-2.2); BILIRUBIN,TOTAL 0.7 mg/dL (0.2-1.0); CALCIUM 8.8 mg/dL (8.5-10.3); CREATININE 0.6 mg/dL (0.4-1.0); PHOSPHORUS 2.6 mg/dL (2.5-4.6); POTASSIUM 3.4 mmol/L (3.5-5.0); TOTAL PROTEIN 5.2 g/dL (6.7-8.2)
[2020-09-01] MEDS: PANTOPRAZOLE 40 MG TABLET PO SCH (06:08)
[2020-09-01] MEDS: methocarbamoL 500 MG TABLET PO SCH ×2 (06:08→13:05)
[2020-09-01] MEDS ORDERED: CALAMINE/ZINC OXIDE 177 ML BOTTLE TOP PRN (06:09)
[2020-09-01] MEDS: ENOXAPARIN 40 MG/0.4 ML SYRINGE SUBQ SCH (09:49)
[2020-09-01] MEDS: DOCUSATE SODIUM 100 MG CAPSULE PO SCH (09:50)
[2020-09-01] MEDS: SALINE ENEMA 133 ML BOTTLE RC SCH (09:50)
[2020-09-01] MEDS: polyethylene glycoL 3350 17 GM PACKET PO SCH (09:50)
[2020-09-01] MEDS: SODIUM CHLORIDE FLUSH 0.9% 10 ML SYRINGE IVP SCH (10:00)
[2020-09-01] MEDS ORDERED: POTASSIUM CHLORIDE 20 MEQ/15 ML UDC PO ONE (10:00)
[2020-09-01] MEDS ORDERED: POTASSIUM PHOSPHATE 15 MMOL in SODIUM CHLORIDE 0.9% 250 ML IV ONE (11:00)
--- NOTE | 2020-09-01 15:46 | Discharge Plan ---
Discharge Plan Problem Reviewed?: Yes Disposition: 06 Home Health Service Condition: Good Prescriptions: oxyCODONE [Roxicodone] 5 mg PO Q4HR PRN #30 tablet PRN Reason: Pain methocarbamoL [Robaxin] 500 mg PO Q6HR PRN #50 tablet PRN Reason: Spasms Docusate Sodium 100Mg Capsule [Colace 100Mg Capsule] 100 mg PO BID #60 cap Pantoprazole [Protonix] 40 mg PO BIDAC #60 tablet Diet: Soft Activity Restrictions: no heavy lift/push/pull Shower Restrictions: No Driving Restrictions: Yes (no driving while taking pain medications) Weight Bearing: Full Weight Instruction Topics: Metoclopramide injection, Pantoprazole tablets, Polyethylene Glycol powder, Docusate capsules, Methocarbamol tablets Health Concerns: DISCHARGE INSTRUCTIONS TEMPLATE: Drain care and education No heavy lifting, pushing, or pulling. Stairs are allowed, no strenuous/exertional activities. 5-10lbs weight carrying limit (i.e. gallon of milk) If provided, abdominal binder while out of bed and while ambulating. Call or proceed to clinic/ER for fevers, severe pain, nausea, vomiting, inability to pass flatus/stool, bleeding, wound redness/discharge, weakness, excessively loose stool/diarrhea, or for any other reasonably worrisome symptom or concern. Soft diet, no raw vegetables, avoid high fiber foods. Colace 100mg by mouth twice to three times daily while taking narcotic pain medication. If no bowel movement in 24-48hr, may take 17g Miralax in 8oz water twice daily until bowel movement. May shower, no submersive bathing. Follow up in clinic in 2-4 weeks for wound check and staple removal. No driving while taking narcotic pain medications. Follow up with primary care provider and/or medical subspecialist following discharge as well. Patient not allowed to drive self today or within 24 hours of surgery. Plan of Treatment: DISCHARGE INSTRUCTIONS TEMPLATE: Drain care and education No heavy lifting, pushing, or pulling. Stairs are allowed, no strenuous/exertional activities. 5-10lbs weight carrying limit (i.e. gallon of milk) If provided, abdominal binder while out of bed and while ambulating. Call or proceed to clinic/ER for fevers, severe pain, nausea, vomiting, inability to pass flatus/stool, bleeding, wound redness/discharge, weakness, excessively loose stool/diarrhea, or for any other reasonably worrisome symptom or concern. Soft diet, no raw vegetables, avoid high fiber foods. Colace 100mg by mouth twice to three times daily while taking narcotic pain medication. If no bowel movement in 24-48hr, may take 17g Miralax in 8oz water twice daily until bowel movement. May shower, no submersive bathing. Follow up in clinic in 2-4 weeks for wound check and staple removal. No driving while taking narcotic pain medications. Follow up with primary care provider and/or medical subspecialist following discharge as well. Patient not allowed to drive self today or within 24 hours of surgery. Assessment: Patient to have PICC line removed. Patient to have drain care and education. Patient to continue with local wound care to the historic ileostomy site is follows: 1. Historic ileostomy site with open defect partially closed with pursestring suture. 2. Please pack daily with iodoform quarter inch packing strips, half-inch is also acceptable. 3. One continuous strip. Cover with dry sterile gauze dressing. 4. Perform daily. Prescription sent to pharmacy. Patient resolved for ileus. Tolerating diet. Tolerating oral analgesia. Voiding. Positive bowel function. Additional Instructions or Follow Up instructions: Follow up Friday for drain care/removal. No Smoking: If you smoke, Please STOP! Call for help. Follow-up with: Diane Oakley PA-C [Primary Care Provider] - Costa Christopher MD [Provider Admit Priv/Credential] - 1 Week
--- NOTE | 2020-09-01 15:46 | DISCHARGE SUMMARY ---
"Discharge Summary Admit Date: 08/24/20 Discharge Date: 09/01/20 Discharging Provider: Ashwin Code Status: Attempt Resuscitation Condition at Discharge: Good Discharge Disposition: 06 Home Health Service - DIAGNOSES Admission Diagnoses: 1. Bradycardia 2. Rectal cancer 3. Ileostomy status 4. History of low anterior resection, laparoscopic 5. Dehydration 6. Hypokalemia 7. Abdominal wall hernia Discharge Diagnoses with Status of Each Condition: 1. Bradycardia - STABLE/evaluated by hospitalist service 2. Rectal cancer - Treated 3. Ileostomy status - Reversed 4. History of low anterior resection, laparoscopic - Unchanged/Taken down for ileostomy/restored for bowel continuity 5. Dehydration - Treated 6. Hypokalemia - Treated 7. Abdominal wall hernia - Repaire 8. Ileus - Resolved 9. Ruptured Renal Cysts - Incidental finding - HPI History of Present Illness: 85-year-old female with history of differentiated adenocarcinoma of the rectum. She underwent short course neoadjuvant chemoradiation with capecitabine followed by laparoscopic low anterior resection with diverting loop ileostomy. Her past medical history regards to cardiac disease, hypertension, hyperlipidemia but she has neither had a heart attack, stroke. She was evaluated preoperatively by a cable mechanic. Postoperatively she was maintained on fluid resuscitation with weekly schedule IV boluses secondary to the risk of dehydration and renal failure with a diverting proximal loop ileostomy. Prior to planned ileostomy takedown, colonoscopy had no complications and she had a patent anastomosis. She underwent CT scan with no complications as well. Today she presents for ileostomy reversal as well as other indicated procedures. - CONSULTS | PROCEDURES Consultations: Hospitalist Procedures: Pre-Op Diagnosis: Hx of rectal ca; history of short course neoadj chemorad; s/p LAR & DLI Procedure Performed: 1. Ileostomy takedown 2. Small bowel resection 3. [id number] functional end-to-end antiperistaltic anastomosis stapled with primary enterotomy closure in layers 4. Parastomal hernia repair 5. Drain placement 6. adhesiolysis Post Op Diagnosis: Same; viable enteroenterostomy no complication. Adhesions. - HOSPITAL COURSE Hospital Course: She was admitted today following an ileostomy takedown with small bowel r esection. She is underwent a [id number] functional end-to-end antiperistaltic anastomosis, parastomal hernia repair, drain placement and adhesiolysis. In the recovery, she had a heart rate in the mid 40s to 60s. Anesthesia was consulted and no intervention was needed. She was transferred to [facility]. Heart rate continues to be 40-47 with a blood pressure of 144/164, and 163/79. Room air sats are 95 to 96% and her respirations are 18. Hospitalist consultation was obtained to assist with management. Patient had no concerns for acute myocardial infarction with stable EKG and no elevated troponins. Patient underwent operative intervention as listed in the electronic medical record. Tolerated procedure well for which there was no complication. Postoperatively the patient was managed for postoperative analgesia and resumption of bowel function. Patient had successfully passed trial of void. Patient had early resumption of bowel function and tolerated oral intake without any complication. Denied nausea denied vomiting. Was advanced for diet however ultimately had signs of ileus for which bowel function abruptly decreased. Patient was placed for nasogastric tube after episodic nausea and emesis. She ultimately self discharged her nasogastric tube. She continued to have slow resumption of bowel function although clinically improved. CT scan showed signs of ileus with ruptured renal cyst likely the source of the patient's pain which resolved. She was maintained for Antonio drain. She was continued for local wound care to historic loop ileostomy site. She was maintained on antibiotics perioperatively but these were discontinued. Patient has chronic baseline elevated white count however remained afebrile, hemodynamically acceptable, other than asymptomatic bradycardia for which the patient has a longstanding history as listed elsewhere. No indication per hospital service for any intervention. Ultimately the patient had full resumption of bowel function. Negative C. difficile. Held for all bowel agents. Tolerated oral intake and oral analgesia. Discharge instructions given. Analgesia with oxycodone provided at time of discharge. Patient plan for follow-up and will be notified of pathology once returned. - ALLERGIES Allergies/Adverse Reactions: Allergies Allergy/AdvReac Type Severity Reaction Status Date / Time ELIZABETH Inhibitors Allergy Hives Verified 09/05/20 16:10 lisinopril Allergy Hives Verified 09/05/20 16:10 telmisartan [From Micardis] Allergy Hives Verified 09/05/20 16:10 - MEDICATIONS Home Medications: Ambulatory Orders Medication Instructions Recorded Confirmed Aspirin [Aspirin EC] 81 mg PO DAILY 12/15/16 08/24/20 Folic Acid 0.4 mg PO DAILY 12/15/16 08/24/20 Simvastatin [Zocor] 20 mg PO DAILY 12/15/16 08/24/20 Levothyroxine [Synthroid] 100 mcg ORAL DAILY 03/08/20 08/24/20 Cholecalciferol [Vitamin D3] 25 mcg PO QDBREAKFAST 05/29/20 08/24/20 Acetaminophen [Tylenol] 500 mg PO Q4HR PRN 06/07/20 08/24/20 methocarbamoL [Robaxin] 500 mg PO Q6HR PRN #50 tab 06/07/20 08/24/20 Docusate Sodium 100Mg Capsule 100 mg PO BID #60 cap 09/01/20 [Colace 100Mg Capsule] Pantoprazole [Protonix] 40 mg PO BIDAC #60 tablet 09/01/20 methocarbamoL [Robaxin] 500 mg PO Q6HR PRN #50 tablet 09/01/20 oxyCODONE [Roxicodone] 5 mg PO Q4HR PRN #30 tablet 09/01/20 - PHYSICAL EXAM AT DISCHARGE General Appearance: positive: No acute distress, Alert Eyes Bilateral: positive: Normal inspection, PERRL, EOMI ENT: positive: ENT inspection nml Neck: positive: Nml inspection Respiratory: positive: Chest non-tender, No respiratory distress, Breath sounds nml. negative: Wheezes, Rales, Rhonchi Cardiovascular: positive: Regular rate & rhythm, Bradycardia Abdomen: positive: Other (see below) Back: positive: Nml inspection Skin: positive: Color nml, No rash, Warm Extremities: positive: Non-tender, Full ROM, Nml appearance Neurologic/Psychiatric: positive: Oriented x3, CN's nml (2-12), Motor nml, Sensation nml, Mood/affect nml Physical Exam Other/Comments: Abdominal Exam: Inspection - Erythema none; Scars trocars well healed Auscultation -normoactive bowel sounds Palpation - Hernias none; Fluctuance none; Induration none; Scar N/A Antonio drain intact with serosanguineous drainage Historic ileostomy site with open defect partially closed with pursestring suture. Please pack daily with iodoform quarter inch packing strips, half-inch is also acceptable. One continuous strip. Cover with dry sterile gauze dressing. Perform daily. - LABS Result Diagrams: 09/01/20 04:45 09/01/20 04:45 - DIAGNOSTIC IMAGING Diagnostic Imaging Results: Final report reviewed Diagnostic Imaging Results Comments: SEE EMR. ILEUS. - SEPSIS Current Stage of Sepsis: Ruled out - FOLLOW UP Follow Up: 1. Continue with Antonio drain care 2. Continue with ileostomy site management as per below 3. Follow-up in clinic next week for removal of drain and postoperative care * Historic ileostomy site with open defect partially closed with pursestring suture. * Please pack daily with iodoform quarter inch packing strips, half-inch is also acceptable.One continuous strip. Cover with dry sterile gauze dressing. * Perform daily. - TIME SPENT Time Spent in Discharge (Minutes): 60"
[2020-09-01 16:21] VITALS: BP 127/69
--- NOTE | 2020-09-05 20:22 | PROVIDER PROGRESS NOTE ---
Progress Note Subjective See EMR. Persistent signs consistent with ileus. Slow resolution. Objective Afebrile hemodynamically acceptable. Bradycardia stable General Appearance: positive: No acute distress Eyes Bilateral: positive: Normal inspection ENT: positive: ENT inspection nml Neck: positive: Nml inspection Respiratory: positive: Chest non-tender, No respiratory distress, Breath sounds nml. negative: Wheezes, Rales, Rhonchi Cardiovascular: positive: Regular rate & rhythm Abdomen: positive: No distention, Other. negative: Guarding, Rebound Extremities: positive: Non-tender, Full ROM, Nml appearance Neurologic/Psychiatric: positive: Oriented x3, CN's nml (2-12) Abdominal distention. No rebound or guarding. Impression/Plan Postoperative ileus. Recommend CT scan to evaluate. Limit diet pending results. (1) GI - IVF, bowel regimen, advance diet as tolerated. GI ppx. Anticipate ileus. Opiate sparring analgesia. (2) SURGERY - continue Antonio drain. Continue daily packing strips. Wound care as stated to historic ileostomy site. Follow-up CT scan. (3) Renal/Lytes - continue IVF. Renal indices within normal limits. (4) Respiratory - O2 as necessary. Continue IS. (5) Heme - Will continue with DVT ppx. H/H stable. (6) Cardiovascular - HD acceptable. (7) Neuro - Opiate sparring analgesia. Antispasmodics with Robaxin. Neuropathic agents.
== END 2020-09-01 17:01 | disposition home health service (06) | DRG 330 ==
LOC: MS2 09:40
PROVIDERS: ADMIT Surgery; ATTEND Surgery
PROC: 0DBB0ZZ Excision of Ileum, Open Approach (ICD-10-PCS; principal; 2020-08-24 11:15)
DX: Z43.2 Encounter for attention to ileostomy (principal); K56.7 Ileus, unspecified; K43.5 Parastomal hernia without obstruction or gangrene; E86.0 Dehydration; E87.6 Hypokalemia; I10 Essential (primary) hypertension; Z98.0 Intestinal bypass and anastomosis status; K66.0 Peritoneal adhesions (postprocedural) (postinfection); R00.1 Bradycardia, unspecified; E78.5 Hyperlipidemia, unspecified; E03.9 Hypothyroidism, unspecified; D89.2 Hypergammaglobulinemia, unspecified; N28.1 Cyst of kidney, acquired; K76.0 Fatty (change of) liver, not elsewhere classified; R01.1 Cardiac murmur, unspecified; R32 Unspecified urinary incontinence; G89.29 Other chronic pain; M54.9 Dorsalgia, unspecified; M19.90 Unspecified osteoarthritis, unspecified site; Z96.649 Presence of unspecified artificial hip joint; E66.3 Overweight; Z68.27 Body mass index [BMI] 27.0-27.9, adult; Z79.82 Long term (current) use of aspirin; Z79.899 Other long term (current) drug therapy; Z85.048 Personal history of other malignant neoplasm of rectum, rectosigmoid junction, and anus; Z90.710 Acquired absence of both cervix and uterus; Z92.3 Personal history of irradiation; Z92.21 Personal history of antineoplastic chemotherapy; Z86.11 Personal history of tuberculosis; Z87.440 Personal history of urinary (tract) infections; Z90.49 Acquired absence of other specified parts of digestive tract
CPT/HCPCS: 36415; 71045; 74177; 80053; 83735; 84100; 84484; 85025; 87493; 93005; 97116; 97161; 97530; A9270; J0131; J1170; J1650; J2765; J7120; Q9967

== ENCOUNTER 2020-09-05 16:06 | Observation (INO) | payer MEDICARE, OTHER ==
[2020-09-05] MEDS ORDERED: SODIUM CHLORIDE 0.9% 1,000 ML IV STA (16:32)
[2020-09-05 17:02] LABS: BILIRUBIN,URINE NEGATIVE (NEGATIVE); GLUCOSE, URINE (UA) NEGATIVE (NEGATIVE); KETONES,URINE (UA) NEGATIVE (NEGATIVE); LEUKOCYTE ESTERASE, URINE TRACE (NEGATIVE); NITRITE,URINE NEGATIVE (NEGATIVE); OCCULT BLOOD,URINE NEGATIVE (NEGATIVE); PROTEIN,URINE NEGATIVE (NEGATIVE); UROBILINOGEN,URINE 0.2 (NORMAL) E.U./dL (NORMAL)
[2020-09-05 17:06] LABS: CLARITY,URINE CLEAR (CLEAR)
[2020-09-05 17:16] LABS: BACTERIA,URINE Rare /HPF (None Seen); RBC,URINE 0-5 /HPF (0-5); SQUAMOUS EPITHELIAL CELL,UR FEW Squamous (<= Few)
[2020-09-05 17:51] LABS: BASOPHILS % (AUTO) 0.2 %; EOSINOPHILS # (AUTO) 0.1 10^3/uL (0.0-0.7); EOSINOPHILS % (AUTO) 0.6 %; HCT - HEMATOCRIT 33.6 % (37.0-47.0); HGB - HEMOGLOBIN 10.9 g/dL (12.0-16.0); LYMPHOCYTES # (AUTO) 0.7 10^3/uL (1.5-3.5); LYMPHOCYTES % (AUTO) 4.9 %; MEAN CORPUSCULAR HEMOGLOBIN 28.7 pg (27.0-31.0); MEAN CORPUSCULAR HGB CONC 32.4 g/dL (32.0-36.0); MEAN CORPUSCULAR VOLUME 88.4 fL (81.0-99.0); MEAN PLATELET VOLUME 9.7 fL (7.9-10.8); MONOCYTES % (AUTO) 6.4 %; NEUTROPHILS # (AUTO) 13.1 10^3/uL (1.5-6.6); NEUTROPHILS % (AUTO) 87.4 %; PLT - PLATELET COUNT 390 10^3/uL (130-450); RED CELL DISTRIBUTION WIDTH 16.6 % (12.0-15.0)
[2020-09-05 18:21] LABS: ALBUMIN 2.9 g/dL (3.2-5.5); ALBUMIN/GLOBULIN RATIO 1.1 (1.0-2.2); BILIRUBIN,TOTAL 0.4 mg/dL (0.2-1.0); CALCIUM 8.8 mg/dL (8.5-10.3); CREATININE 0.8 mg/dL (0.4-1.0); MAGNESIUM 1.8 mg/dL (1.7-2.8); PHOSPHORUS 2.4 mg/dL (2.5-4.6); TOTAL PROTEIN 5.5 g/dL (6.7-8.2)
[2020-09-05 18:25] LABS: POTASSIUM 2.3 mmol/L (3.5-5.0)
[2020-09-05] MEDS ORDERED: POTASSIUM CHLOR 10 MEQ/100 ML 10 MEQ/100 ML BAG IV STA ×4 (18:37→19:44)
--- NOTE | 2020-09-05 19:13 | ED Physician Documentation ---
History of Present Illness - Stated complaint Stated Complaint: DIARRHEA - Chief complaint Chief Complaint: General - History obtained from History obtained from: Patient - History of Present Illness Timing: How many days ago (4) Pain level max: 0 Pain level now: 0 - Additonal information Additional information: 85-year-old female presents to the emergency department stating that she had a recent ileostomy reversal. She has been having diarrhea for the past 1 to 2 weeks. She had a negative C. difficile test 4 days ago. She states she had diarrhea about 20 times yesterday, only 3 times today. Nothing makes it better or worse. She states that her home health nurse was concerned about possible C. difficile. No fevers. No chills. She states her postsurgical pain is well controlled. Review of Systems Ten Systems: 10 systems reviewed and negative Constitutional: denies: Fever, Chills Respiratory: denies: Cough GI: reports: Diarrhea. 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, Other () : Incontinence, Chronic bladder infection HEENT: Chronic sinusitis, Dental implants Psych: None Musculoskeletal: Osteoarthritis, Chronic back pain Derm: None - Past Surgical History Past Surgical History: Yes General: Appendectomy, Bowel surgery, Colonoscopy Ortho: Hip replacement, Other /SILVICULTURE TEACHER: Dilation and currettage, Hysterectomy, Other HEENT: Cataracts, Tonsil/Adenoidectomy - Present Medications Home Medications: Ambulatory Orders Medication Instructions Recorded Confirmed Aspirin [Aspirin EC] 81 mg PO DAILY 12/15/16 08/24/20 Folic Acid 0.4 mg PO DAILY 12/15/16 08/24/20 Simvastatin [Zocor] 20 mg PO DAILY 12/15/16 08/24/20 Levothyroxine [Synthroid] 100 mcg ORAL DAILY 03/08/20 08/24/20 Cholecalciferol [Vitamin D3] 25 mcg PO QDBREAKFAST 05/29/20 08/24/20 Acetaminophen [Tylenol] 500 mg PO Q4HR PRN 06/07/20 08/24/20 methocarbamoL [Robaxin] 500 mg PO Q6HR PRN #50 tab 06/07/20 08/24/20 Docusate Sodium 100Mg Capsule 100 mg PO BID #60 cap 09/01/20 [Colace 100Mg Capsule] Pantoprazole [Protonix] 40 mg PO BIDAC #60 tablet 09/01/20 methocarbamoL [Robaxin] 500 mg PO Q6HR PRN #50 tablet 09/01/20 oxyCODONE [Roxicodone] 5 mg PO Q4HR PRN #30 tablet 09/01/20 - Allergies Allergies/Adverse Reactions: Allergies Allergy/AdvReac Type Severity Reaction Status Date / Time ELIZABETH Inhibitors Allergy Hives Verified 09/05/20 16:10 lisinopril Allergy Hives Verified 09/05/20 16:10 telmisartan [From Micardis] Allergy Hives Verified 09/05/20 16:10 - Social History Does the pt smoke?: No Smoking Status: Never smoker Does the pt drink ETOH?: No Does the pt have substance abuse?: No - POLST Patient has POLST: No POLST Status: Full Code PD ED PE NORMAL - Vitals Vital signs reviewed: Yes - General General: Alert and oriented X 3, No acute distress - HEENT HEENT: Other (Dry lips) - Neck Neck: Supple, no meningeal sign - Cardiac Cardiac: RRR, Strong equal pulses - Respiratory Respiratory: No respiratory distress, Clear bilaterally - Abdomen Abdomen: Soft, Non tender, Non distended, Other (Incisions are clean, dry, intact. No signs of infection) - Derm Derm: Warm and dry - Extremities Extremities: No edema, No calf tenderness / cord - Neuro Neuro: Alert and oriented X 3 - Psych Psych: Normal mood, Normal affect Results - Vitals Vitals: Vital Signs - 24 hr 09/05/20 09/05/20 09/05/20 16:10 18:19 18:49 Temperature 36.9 C 37.2 C Heart Rate 56 L 49 L 46 L Respiratory 18 15 18 Rate Blood Pressure 133/64 H 130/52 L 135/69 H O2 Saturation 95 96 97 09/05/20 20:03 Temperature Heart Rate 50 L Respiratory 17 Rate Blood Pressure 142/61 H O2 Saturation 96 Oxygen O2 Source Room air - Labs Labs: Laboratory Tests 09/05/20 09/05/20 09/05/20 16:50 17:46 17:46 WBC 15.0 H RBC 3.80 L Hgb 10.9 L Hct 33.6 L MCV 88.4 MCH 28.7 MCHC 32.4 RDW 16.6 H Plt Count 390 MPV 9.7 Neut # (Auto) 13.1 H Lymph # (Auto) 0.7 L [place] # (Auto) 1.0 Eos # (Auto) 0.1 Baso # (Auto) 0.0 Absolute Nucleated RBC 0.00 Nucleated RBC % 0.0 Sodium 140 Potassium 2.3 L* Chloride 103 Carbon Dioxide 30 Anion Gap 7.0 BUN 7 Creatinine 0.8 Estimated GFR (MDRD) 68 L Glucose 91 Calcium 8.8 Phosphorus 2.4 L Magnesium 1.8 Total Bilirubin 0.4 AST 15 ALT 10 Alkaline Phosphatase 50 Total Protein 5.5 L Albumin 2.9 L Globulin 2.6 Albumin/Globulin Ratio 1.1 Lipase 27 Urine Color YELLOW Urine Clarity CLEAR Urine pH 6.0 Ur Specific [place] 1.015 Urine Protein NEGATIVE Urine Glucose (UA) NEGATIVE Urine Ketones NEGATIVE Urine Occult Blood NEGATIVE Urine Nitrite NEGATIVE Urine Bilirubin NEGATIVE Urine Urobilinogen 0.2 (NORMAL) Ur Leukocyte Esterase TRACE H Urine RBC 0-5 Urine WBC 4-5 Ur Squamous Epith Cells FEW Squamous Urine Bacteria Rare Ur Microscopic Review INDICATED Urine Culture Comments INDICATED Nasal Adenovirus (PCR) Nasal B. parapertussis DNA (PCR) Nasal Coronavir 229E PCR Nasal Coronavir HKU1 PCR Nasal Coronavir NL63 PCR Nasal Coronavir OC43 PCR Nasal Enterovir/Rhinovir PCR Nasal Influenza B PCR Nasal Influenza A PCR Nasal Parainfluen 1 PCR Nasal Parainfluen 2 PCR Nasal Parainfluen 3 PCR Nasal Parainfluen 4 PCR Nasal RSV (PCR) Nasal B.pertussis DNA PCR Nasal C.pneumoniae (PCR) Rafa Human Metapneumo PCR Nasal M.pneumoniae (PCR) Nasal SARS-CoV-2 (PCR) 09/05/20 18:55 WBC RBC Hgb Hct MCV MCH MCHC RDW Plt Count MPV Neut # (Auto) Lymph # (Auto) [place] # (Auto) Eos # (Auto) Baso # (Auto) Absolute Nucleated RBC Nucleated RBC % Sodium Potassium Chloride Carbon Dioxide Anion Gap BUN Creatinine Estimated GFR (MDRD) Glucose Calcium Phosphorus Magnesium Total Bilirubin AST ALT Alkaline Phosphatase Total Protein Albumin Globulin Albumin/Globulin Ratio Lipase Urine Color Urine Clarity Urine pH Ur Specific [place] Urine Protein Urine Glucose (UA) Urine Ketones Urine Occult Blood Urine Nitrite Urine Bilirubin Urine Urobilinogen Ur Leukocyte Esterase Urine RBC Urine WBC Ur Squamous Epith Cells Urine Bacteria Ur Microscopic Review Urine Culture Comments Nasal Adenovirus (PCR) NOT DETECTED Nasal B. parapertussis DNA (PCR) NOT DETECTED Nasal Coronavir 229E PCR NOT DETECTED Nasal Coronavir HKU1 PCR NOT DETECTED Nasal Coronavir NL63 PCR NOT DETECTED Nasal Coronavir OC43 PCR NOT DETECTED Nasal Enterovir/Rhinovir PCR NOT DETECTED Nasal Influenza B PCR NOT DETECTED Nasal Influenza A PCR NOT DETECTED Nasal Parainfluen 1 PCR NOT DETECTED Nasal Parainfluen 2 PCR NOT DETECTED Nasal Parainfluen 3 PCR NOT DETECTED Nasal Parainfluen 4 PCR NOT DETECTED Nasal RSV (PCR) NOT DETECTED Nasal B.pertussis DNA PCR NOT DETECTED Nasal C.pneumoniae (PCR) NOT DETECTED Rafa Human Metapneumo PCR NOT DETECTED Nasal M.pneumoniae (PCR) NOT DETECTED Nasal SARS-CoV-2 (PCR) NOT DETECTED PD MEDICAL DECISION MAKING - ED course Complexity details: reviewed results, re-evaluated patient, considered differential, d/w patient, d/w relationship consultant ED course: 85-year-old female presents to the emergency department with continued diarrhea after ileostomy reversal. Her stool is loose here, but not liquidy stool. C. difficile could not be run on the stool sample as it was too firm. She is found to be significantly hypokalemic and states that she is not feeling very well. Acute change from 3.4 last week. Likely that this is secondary to dehydration and hypokalemia. We will replace the potassium overnight and see how she feels in the morning. Discussed the case with Dr. Christopher, general surgery on-call who will place the patient in observation. This document was made in part using voice recognition software. While efforts are made to proofread this document, sound alike and grammatical errors may occur. Departure - Departure Disposition: ED Place in Observation Clinical Impression: Hypokalemia, Dehydration Diarrhea Qualifiers: Diarrhea type: unspecified type Qualified Code(s): R19.7 - Diarrhea, unspecified Condition: Stable Discharge Date/Time: 09/05/20 21:41
[2020-09-05 19:49] LABS: B. PARAPERTUSSIS- RESP PCR PAN NOT DETECTED; B. PERTUSSIS- RESP PCR PANEL NOT DETECTED; C. PNEUMONIAE- RESP PCR PANEL NOT DETECTED; CORONAVIRUS 229E-RESP PCR NOT DETECTED; CORONAVIRUS HKU1-RESP PCR NOT DETECTED; CORONAVIRUS NL63-RESP PCR NOT DETECTED; CORONAVIRUS OC43-RESP PCR NOT DETECTED; HUMAN METAPNEUMOVIRUS NOT DETECTED; INFLUENZA A- RESP PCR PANEL NOT DETECTED; INFLUENZA B - RESP PCR PANEL NOT DETECTED; M. PNEUMONIAE- RESP PCR PANEL NOT DETECTED; PARAINFLUENZA VIRUS 1 NOT DETECTED; PARAINFLUENZA VIRUS 2 NOT DETECTED; PARAINFLUENZA VIRUS 3 NOT DETECTED; PARAINFLUENZA VIRUS 4 NOT DETECTED; RHINOVIRUS/ENTEROVIRUS NOT DETECTED; RSV- RESP PCR PANEL NOT DETECTED; SARS-CoV-2 -RESP PCR PANEL NOT DETECTED
[2020-09-05] MEDS ORDERED: ONDANSETRON 4 MG/2 ML VIAL IVP PRN (20:58)
[2020-09-05] MEDS ORDERED: SODIUM CHLORIDE FLUSH 0.9% 10 ML SYRINGE IVP PRN (20:58)
--- NOTE | 2020-09-05 20:58 | SURGERY HX AND PHYSICAL(T) ---
Surgical History & Physical - Chief Complaint/HPI Chief Complaint: Hypokalemia and dehydration History of Present Illness: 85-year-old female recently status post ileostomy reversal. History of rectal cancer status post neoadjuvant chemoradiation. Status post laparoscopic assisted low anterior resection with proximal diversion. Patient reports recent malaise. Increase loose stooling with near 20 bowel movements over the last 24 hours. Advised to proceed to the emergency room for evaluation and work-up. Labs notable for severe hypokalemia. Hospitalist service deferred admission. Surgical consult called for observation and intervention. No nausea no vomiting. No fever. No abdominal discomfort. 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, Other () Urinary: Incontinence, Chronic bladder infection Musculoskeletal: Osteoarthritis, Chronic back pain Psychiatric: None General: Appendectomy, Bowel surgery, Colonoscopy Orthopedic: Hip replacement, Other Urologic: Bladder surgery Eyes Ears Nose Throat (EENT): Cataracts, Tonsil/Adenoidectomy Smoking Status: Never smoker Does the pt drink ETOH?: No Does the pt have substance abuse?: No - Home Meds and Allergies Home Medications: Aspirin [Aspirin EC] 81 mg PO DAILY 12/15/16 Folic Acid 0.4 mg PO DAILY 12/15/16 Simvastatin [Zocor] 20 mg PO DAILY 12/15/16 Levothyroxine [Synthroid] 100 mcg ORAL DAILY 03/08/20 Cholecalciferol [Vitamin D3] 25 mcg PO QDBREAKFAST 05/29/20 Allergies/Adverse Reactions: Allergies Allergy/AdvReac Type Severity Reaction Status Date / Time ELIZABETH Inhibitors Allergy Hives Verified 09/05/20 16:10 lisinopril Allergy Hives Verified 09/05/20 16:10 telmisartan [From Micardis] Allergy Hives Verified 09/05/20 16:10 - Review of Systems Constitutional: Malaise Gastrointestinal: Diarrhea. No: Nausea, Vomiting, Abdominal pain Neurological: Weakness - Vital Signs Heart Rate: 50 Blood Pressure: 142/61 Temperature: 37.2 C Respiratory Rate: 17 O2 Saturation: 96 Weight (kg): 86.183 kg Height: 1.7 m - Physical Exam Comments/Other: General Appearance: positive: No acute distress Eyes Bilateral: positive: Normal inspection ENT: positive: ENT inspection nml Neck: positive: Nml inspection Respiratory: positive: Chest non-tender, No respiratory distress, Breath sounds nml. negative: Wheezes, Rales, Rhonchi Cardiovascular: positive: Regular rate & rhythm Abdomen: positive: No distention, Other. negative: Guarding, Rebound Extremities: positive: Non-tender, Full ROM, Nml appearance Neurologic/Psychiatric: positive: Oriented x3, CN's nml (2-12) Abdominal Exam: Inspection - Erythema [none]; Scars [trocars well healed] Auscultation - [Normoactive bowel sounds] Palpation - Hernias [none]; Fluctuance [none]; Induration [none]; Scar [N/A] Soft. Nondistended. No rebound no guarding. - Patient Review Patient Review: Problems were reviewed with the patient during this visit. Medications were reviewed with the patient during this visit. Allergies were reviewed this patient during this visit. Pertinent Tests Reviewed: All pertitent test for this patient were reviewed. - Assessment & Plan Assessment and Plan: 85-year-old female with history of rectal cancer rectal cancer status post neoadjuvant chemoradiation, low anterior resection laparoscopic, and recent loop ileostomy takedown. Diarrhea with resultant hypokalemia from gastrointestinal losses. No evidence of C. difficile infection. Will admit for observation and aggressively however safely replete electrolytes. Moreover we will start slowing agents to assist the patient with her bowel function. We will will discharge with potassium phosphate supplements and Lomotil and plan outpatient labs as well.
[2020-09-05] MEDS ORDERED: methocarbamoL 500 MG TABLET PO PRN (20:59)
[2020-09-05] MEDS ORDERED: oxyCODONE 5 MG TABLET PO PRN (20:59)
[2020-09-05] MEDS ORDERED: ACETAMINOPHEN 500 MG TABLET PO PRN (20:59)
[2020-09-05] MEDS ORDERED: POTASSIUM CHLOR 10 MEQ/100 ML 10 MEQ/100 ML BAG IV SCH (22:00)
[2020-09-05] MEDS ORDERED: POTASSIUM CHLORIDE 20 MEQ/15 ML UDC PO SCH (22:00)
[2020-09-05] MEDS: D5NS W/20 MEQ KCL 1,000 ML IV SCH (22:29)
[2020-09-05] MEDS: PANTOPRAZOLE 40 MG TABLET PO SCH (22:30)
[2020-09-06] MEDS: methocarbamoL 500 MG TABLET PO SCH ×4 (00:10→20:29)
[2020-09-06] MEDS: SODIUM CHLORIDE FLUSH 0.9% 10 ML SYRINGE IVP SCH ×3 (00:11→16:08)
[2020-09-06] MEDS ORDERED: DIPHENOX/ATROPINE 2.5/0.025 MG TABLET PO PRN (00:19)
[2020-09-06 05:09] LABS: BASOPHILS % (AUTO) 0.1 %; EOSINOPHILS # (AUTO) 0.2 10^3/uL (0.0-0.7); HCT - HEMATOCRIT 33.3 % (37.0-47.0); HGB - HEMOGLOBIN 10.7 g/dL (12.0-16.0); LYMPHOCYTES # (AUTO) 0.7 10^3/uL (1.5-3.5); LYMPHOCYTES % (AUTO) 4.3 %; MEAN CORPUSCULAR HEMOGLOBIN 28.5 pg (27.0-31.0); MEAN CORPUSCULAR HGB CONC 32.1 g/dL (32.0-36.0); MEAN CORPUSCULAR VOLUME 88.8 fL (81.0-99.0); MEAN PLATELET VOLUME 10.2 fL (7.9-10.8); MONOCYTES % (AUTO) 6.2 %; NEUTROPHILS # (AUTO) 13.4 10^3/uL (1.5-6.6); NEUTROPHILS % (AUTO) 87.9 %; PLT - PLATELET COUNT 397 10^3/uL (130-450); RED BLOOD COUNT 3.75 10^6/uL (4.20-5.40); RED CELL DISTRIBUTION WIDTH 16.7 % (12.0-15.0); WHITE BLOOD COUNT 15.2 x10^3/uL (4.8-10.8)
[2020-09-06 05:18] LABS: ALBUMIN 2.6 g/dL (3.2-5.5); ALKALINE PHOSPHATASE 46 IU/L (42-121); ALT ALANINE AMINOTRANSFERASE < 10 IU/L (10-60); AST ASPARTATE AMINOTRANSFERASE 16 IU/L (10-42); BILIRUBIN,TOTAL 0.5 mg/dL (0.2-1.0); BUN - BLOOD UREA NITROGEN 5 mg/dL (6-20); CALCIUM 8.4 mg/dL (8.5-10.3); CARBON DIOXIDE - CO2 29 mmol/L (21-32); CHLORIDE 107 mmol/L (101-111); CREATININE 0.6 mg/dL (0.4-1.0); GFR - MDRD 95 (>89); GLUCOSE 120 mg/dL (70-100); MAGNESIUM 1.8 mg/dL (1.7-2.8); PHOSPHORUS 2.2 mg/dL (2.5-4.6); POTASSIUM 3.1 mmol/L (3.5-5.0); SODIUM 143 mmol/L (135-145); TOTAL PROTEIN 5.2 g/dL (6.7-8.2)
[2020-09-06] MEDS: D5NS W/20 MEQ KCL 1,000 ML IV SCH (06:39)
[2020-09-06] MEDS: PANTOPRAZOLE 40 MG TABLET PO SCH ×2 (06:40→15:54)
[2020-09-06] MEDS ORDERED: CHOLECALCIFEROL 25 MCG TABLET PO SCH (08:00)
[2020-09-06] MEDS ORDERED: POTASSIUM CHLORIDE 20 MEQ/15 ML UDC PO SCH ×2 (08:00→13:00)
[2020-09-06] MEDS ORDERED: NON FORMULARY MED (Simvastatin [Zocor] 20 MG Tablet) PO SCH (09:00)
[2020-09-06] MEDS ORDERED: FOLIC ACID 1 MG TABLET PO SCH (09:00)
[2020-09-06] MEDS ORDERED: ATORVASTATIN 10 MG TABLET PO SCH (09:00)
[2020-09-06] MEDS ORDERED: ENOXAPARIN 40 MG/0.4 ML SYRINGE SUBQ SCH (09:00)
[2020-09-06] MEDS ORDERED: LEVOTHYROXINE 100 MCG TABLET PO SCH (09:00)
[2020-09-06] MEDS ORDERED: ASPIRIN EC 81 MG TABLET PO SCH (09:00)
[2020-09-06] MEDS ORDERED: MAGNESIUM SULFATE 2 GRAM 2 GM/50 ML BAG IV ONE (12:16)
[2020-09-06] MEDS ORDERED: POTASSIUM PHOSPHATE 21 MMOL in SODIUM CHLORIDE 0.9% 250 ML IV ONE (13:00)
[2020-09-06] MEDS: POTASSIUM CHLORIDE 20 MEQ TABLET PO SCH ×2 (13:45→20:35)
--- NOTE | 2020-09-06 14:12 | PHARMACY PROGRESS NOTE ---
- Best Possible Medication History Admit Date and Time: 09/05/202057 Processed by: Pharmacy Medication History completed: Yes Secondary Source(s): Previous admit records As the person ultimately responsible for medication therapy, providers are able to order a medication from an existing home medication list in [facility] via the "Reconcile Routine" prior to Confirmation of that medication by business support assistant. Such practice is discouraged except when the physician, in their clinical judgment, deems that a medical need exists for a medication without regard to previous use.
[2020-09-06 19:27] LABS: ALBUMIN 2.8 g/dL (3.2-5.5); ALKALINE PHOSPHATASE 58 IU/L (42-121); ALT ALANINE AMINOTRANSFERASE < 10 IU/L (10-60); AST ASPARTATE AMINOTRANSFERASE 18 IU/L (10-42); BILIRUBIN,TOTAL 0.4 mg/dL (0.2-1.0); BUN - BLOOD UREA NITROGEN 7 mg/dL (6-20); CALCIUM 8.5 mg/dL (8.5-10.3); CARBON DIOXIDE - CO2 26 mmol/L (21-32); CHLORIDE 107 mmol/L (101-111); CREATININE 0.8 mg/dL (0.4-1.0); GFR - MDRD 68 (>89); GLUCOSE 127 mg/dL (70-100); PHOSPHORUS 2.9 mg/dL (2.5-4.6); POTASSIUM 3.8 mmol/L (3.5-5.0); SODIUM 142 mmol/L (135-145); TOTAL PROTEIN 5.7 g/dL (6.7-8.2)
--- NOTE | 2020-09-06 19:46 | Discharge Plan ---
Discharge Plan Problem Reviewed?: Yes Disposition: 06 Home Health Service Condition: Good Prescriptions: Potassium Chloride [K-Dur] 20 meq PO BIDWM #60 tablet Diphenoxylate/Atropine [Lomotil] 1 tab PO QID PRN #120 tablet PRN Reason: Diarrhea Diet: Regular Activity Restrictions: Activity as Tolerated Shower Restrictions: No Driving Restrictions: Yes (Not while taking narcotic) Instruction Topics: Hypokalemia Dc, Diet High Potassium Dc, Diarrhea Plan of Treatment: 1. Continue with potassium replacements 2. Continue with slowing agents to reduce gastrointestinal losses (AKA Lomotil) 3. We will perform weekly labs to check potassium liver 4. We will have the patient follow-up with me on Friday 5. Continue with ileostomy site dressing changes as per below Historic ileostomy site with open defect partially closed with pursestring suture. Please pack daily with iodoform quarter inch packing strips, half-inch is also acceptable. One continuous strip. Cover with dry sterile gauze dressing. Perform daily. DISCHARGE INSTRUCTIONS TEMPLATE: No heavy lifting, pushing, or pulling. Stairs are allowed, no strenuous/exertional activities. 5-10lbs weight carrying limit (i.e. gallon of milk) If provided, abdominal binder while out of bed and while ambulating. Call or proceed to clinic/ER for fevers, severe pain, nausea, vomiting, inability to pass flatus/stool, bleeding, wound redness/discharge, weakness, excessively loose stool/diarrhea, or for any other reasonably worrisome symptom or concern. Soft diet, no raw vegetables, avoid high fiber foods. Colace 100mg by mouth twice to three times daily while taking narcotic pain medication. If no bowel movement in 24-48hr, may take 17g Miralax in 8oz water twice daily until bowel movement. May shower, no submersive bathing. Follow up in clinic in 2-4 weeks for wound check and staple removal. No driving while taking narcotic pain medications. Follow up with primary care provider and/or medical subspecialist following discharge as well. Patient not allowed to drive self today or within 24 hours of surgery. Assessment: General Appearance: positive: No acute distress Eyes Bilateral: positive: Normal inspection ENT: positive: ENT inspection nml Neck: positive: Nml inspection Respiratory: positive: Chest non-tender, No respiratory distress, Breath sounds nml. negative: Wheezes, Rales, Rhonchi Cardiovascular: positive: Regular rate & rhythm Abdomen: positive: No distention, Other. negative: Guarding, Rebound Extremities: positive: Non-tender, Full ROM, Nml appearance Neurologic/Psychiatric: positive: Oriented x3, CN's nml (2-12) Assessment and plan: Overall potassium has responded to repletion. Will discharge with 1 more oral replacement. Discharge medications ordered to include slowing agents as well as additional oral repletion therapy. Patient to follow-up with me on Friday. No Smoking: If you smoke, Please STOP! Call for help. Follow-up with: Diane Oakley PA-C [Primary Care Provider] - Costa Christopher MD [Provider Admit Priv/Credential] - 1-2 Days
[2020-09-06] MEDS ORDERED: POTASSIUM CHLORIDE 20 MEQ/15 ML UDC PO ONE (20:00)
[2020-09-06 20:49] VITALS: BP 140/59
[2020-09-07] MEDS ORDERED: LEVOTHYROXINE 100 MCG TABLET PO SCH (07:00)
--- NOTE | 2020-09-12 16:10 | DISCHARGE SUMMARY ---
"Discharge Summary Admit Date: 09/05/20 Discharge Date: 09/06/20 Discharging Provider: Ashwin Code Status: Attempt Resuscitation Condition at Discharge: Good Discharge Disposition: 06 Home Health Service - DIAGNOSES Admission Diagnoses: 1. History of rectal cancer 2. History of neoadjuvant chemoradiation 3. History of low anterior resection 4. History of loop ileostomy 5. Status post recent ileostomy takedown 6. Hypokalemia 7. Dehydration 8. Malaise/failure to thrive 9. Hypophosphatemia 10. Idiopathic leukocytosis Discharge Diagnoses with Status of Each Condition: 1. History of rectal cancer - TREATED 2. History of neoadjuvant chemoradiation - TREATED 3. History of low anterior resection - TREATED 4. History of loop ileostomy - TREATED 5. Status post recent ileostomy takedown - TREATED 6. Hypokalemia - TREATED/RESOLVED 7. Dehydration - TREATED/RESOLVED 8. Malaise/failure to thrive - TREATED/RESOLVED 9. Hypophosphatemia - TREATED/RESOLVED 10. Idiopathic leukocytosis - STABLE/CHRONIC - HPI History of Present Illness: 85-year-old female recently status post ileostomy reversal. History of rectal cancer status post neoadjuvant chemoradiation. Status post laparoscopic assisted low anterior resection with proximal diversion. Patient reports recent malaise. Increase loose stooling with near 20 bowel movements over the last 24 hours. Advised to proceed to the emergency room for evaluation and work-up. Labs notable for severe hypokalemia. Hospitalist service deferred admission. Surgical consult called for observation and intervention. No nausea no vomiting. No fever. No abdominal discomfort. 85-year-old female with history of rectal cancer rectal cancer status post neoadjuvant chemoradiation, low anterior resection laparoscopic, and recent loop ileostomy takedown. Diarrhea with resultant hypokalemia from gastrointestinal losses. No evidence of C. difficile infection. Will admit for observation and aggressively however safely replete electrolytes. Moreover we will start slowing agents to assist the patient with her bowel function. We will will discharge with potassium phosphate supplements and Lomotil and plan outpatient labs as well. - CONSULTS | PROCEDURES Consultations: NONE; Hospitalist consulted for admission but refused Procedures: NONE - HOSPITAL COURSE Hospital Course: 85-year-old female per above admitted with dehydration, hypokalemia and hypophosphatemia. Patient plan for multiple runs in the ER however given the length of anticipated infusions necessary laboratory reevaluation and potential for additional supplementations, admission was sought from the hospital service by the emergency medical staff. Hospital service refused patient admission. I accepted the patient, with whom I have a longstanding history. Patient was profoundly dehydrated, debilitated, and managed for her hypophosphatemia and hypokalemia through intravenous replacements. Patient was started on slowing agents to avoid any gastrointestinal losses. Patient had no evidence of an infectious colitis to which her diarrhea could be attributed. At the time of discharge her replacements were within normal limits. Patient danny celis felt much improved. She had no concerning EKG changes. She had no chest pain no shortness of breath. Her abdomen was soft nontender nondistended, and dressing changes had been continued to be performed to have her ileostomy takedown site. She was plan for short interval follow-up with labs and continued outpatient oral supplementations. - ALLERGIES Allergies/Adverse Reactions: Allergies Allergy/AdvReac Type Severity Reaction Status Date / Time ELIZABETH Inhibitors Allergy Hives Verified 09/05/20 16:10 lisinopril Allergy Hives Verified 09/05/20 16:10 telmisartan [From Micardis] Allergy Hives Verified 09/05/20 16:10 - MEDICATIONS Home Medications: Ambulatory Orders Medication Instructions Recorded Confirmed Aspirin [Aspirin EC] 81 mg PO DAILY 12/15/16 09/06/20 Folic Acid 0.4 mg PO DAILY 12/15/16 09/06/20 Simvastatin [Zocor] 20 mg PO DAILY 12/15/16 09/06/20 Levothyroxine [Synthroid] 100 mcg ORAL DAILY 03/08/20 09/06/20 Cholecalciferol [Vitamin D3] 25 mcg PO QDBREAKFAST 05/29/20 09/06/20 Acetaminophen [Tylenol] 500 mg PO Q4HR PRN 06/07/20 09/06/20 methocarbamoL [Robaxin] 500 mg PO Q6HR PRN #50 tab 06/07/20 09/06/20 Pantoprazole [Protonix] 40 mg PO BIDAC #60 tablet 09/01/20 09/06/20 methocarbamoL [Robaxin] 500 mg PO Q6HR PRN #50 tablet 09/01/20 09/06/20 oxyCODONE [Roxicodone] 5 mg PO Q4HR PRN #30 tablet 09/01/20 09/06/20 Atorvastatin [Lipitor] 10 mg PO DAILY tablet 09/06/20 Diphenoxylate/Atropine [Lomotil] 1 tab PO QID PRN #120 tablet 09/06/20 Potassium Chloride [K-Dur] 20 meq PO BIDWM #60 tablet 09/06/20 methocarbamoL [Robaxin] 500 mg PO Q6HR tablet 09/06/20 Diphenoxylate/Atropine [Lomotil] 1 tab PO QID PRN #120 tablet 09/07/20 - PHYSICAL EXAM AT DISCHARGE Physical Exam Other/Comments: General Appearance: positive: No acute distress Eyes Bilateral: positive: Normal inspection ENT: positive: ENT inspection nml Neck: positive: Nml inspection Respiratory: positive: Chest non-tender, No respiratory distress, Breath sounds nml. negative: Wheezes, Rales, Rhonchi Cardiovascular: positive: Regular rate & rhythm Abdomen: positive: No distention, Other. negative: Guarding, Rebound Extremities: positive: Non-tender, Full ROM, Nml appearance Neurologic/Psychiatric: positive: Oriented x3, CN's nml (2-12) Abdominal Exam: Inspection - Erythema none; Scars trocars well healed Auscultation -normoactive bowel sounds Palpation - Hernias none; Fluctuance none; Induration none; Scar N/A Ileostomy takedown site with good granulation packed with iodoform packing strips no signs of infection - LABS Result Diagrams: 09/06/20 04:55 09/06/20 19:07 - SEPSIS Current Stage of Sepsis: Ruled out - TIME SPENT Time Spent in Discharge (Minutes): 60"
== END 2020-09-06 21:15 | disposition home health service (06) ==
LOC: ED 16:06 → MS2 20:58
PROVIDERS: ADMIT Surgery; ATTEND Surgery
DX: E86.0 Dehydration (principal); R19.7 Diarrhea, unspecified; E87.6 Hypokalemia; E83.39 Other disorders of phosphorus metabolism; Z92.21 Personal history of antineoplastic chemotherapy; R53.81 Other malaise; Z90.49 Acquired absence of other specified parts of digestive tract; D72.828 Other elevated white blood cell count; Z85.048 Personal history of other malignant neoplasm of rectum, rectosigmoid junction, and anus; R62.7 Adult failure to thrive; Z68.29 Body mass index [BMI] 29.0-29.9, adult; Z20.822 Contact with and (suspected) exposure to COVID-19
CPT/HCPCS: 36415; 80053; 81001; 83690; 83735; 84100; 85025; 87086; 87631; 96365; 96366; 96367; 96368; 99284; 99285; A9270; G0378; 0202U; 81003

== ENCOUNTER 2020-09-08 08:00 | Outpatient (CLI) | payer MEDICARE, OTHER ==
[2020-09-08 11:49] LABS: BASOPHILS % (AUTO) 0.2 %; EOSINOPHILS # (AUTO) 0.2 10^3/uL (0.0-0.7); EOSINOPHILS % (AUTO) 1.3 %; HCT - HEMATOCRIT 35.8 % (37.0-47.0); HGB - HEMOGLOBIN 10.9 g/dL (12.0-16.0); LYMPHOCYTES # (AUTO) 0.7 10^3/uL (1.5-3.5); LYMPHOCYTES % (AUTO) 5.4 %; MEAN CORPUSCULAR HEMOGLOBIN 28.5 pg (27.0-31.0); MEAN CORPUSCULAR HGB CONC 30.4 g/dL (32.0-36.0); MEAN CORPUSCULAR VOLUME 93.7 fL (81.0-99.0); MEAN PLATELET VOLUME 11.5 fL (7.9-10.8); MONOCYTES # (AUTO) 0.6 10^3/uL (0.0-1.0); MONOCYTES % (AUTO) 4.3 %; NEUTROPHILS # (AUTO) 11.4 10^3/uL (1.5-6.6); NEUTROPHILS % (AUTO) 88.4 %; PLT - PLATELET COUNT 391 10^3/uL (130-450); RED BLOOD COUNT 3.82 10^6/uL (4.20-5.40); RED CELL DISTRIBUTION WIDTH 17.3 % (12.0-15.0); WHITE BLOOD COUNT 12.9 x10^3/uL (4.8-10.8)
[2020-09-08 12:07] LABS: ALKALINE PHOSPHATASE 54 IU/L (42-121); ALT ALANINE AMINOTRANSFERASE < 10 IU/L (10-60); AST ASPARTATE AMINOTRANSFERASE 23 IU/L (10-42); BILIRUBIN,TOTAL 0.3 mg/dL (0.2-1.0); BUN - BLOOD UREA NITROGEN 7 mg/dL (6-20); CALCIUM 9.2 mg/dL (8.5-10.3); CARBON DIOXIDE - CO2 30 mmol/L (21-32); CHLORIDE 104 mmol/L (101-111); CREATININE 0.8 mg/dL (0.4-1.0); GFR - MDRD 68 (>89); GLUCOSE 166 mg/dL (70-100); POTASSIUM 4.2 mmol/L (3.5-5.0); SODIUM 141 mmol/L (135-145); TOTAL PROTEIN 5.9 g/dL (6.7-8.2)
== END 2020-09-08 23:59 | disposition home or self-care (01) ==
LOC: LAB.WCP 08:00
PROVIDERS: ATTEND Surgery
DX: E86.0 Dehydration (principal)
CPT/HCPCS: 36415; 80053; 85025

== ENCOUNTER 2020-09-14 08:00 | Outpatient (CLI) | payer MEDICARE, OTHER ==
[2020-09-14 12:24] LABS: ALBUMIN 3.6 g/dL (3.2-5.5); ALBUMIN/GLOBULIN RATIO 1.1 (1.0-2.2); BILIRUBIN,TOTAL 0.6 mg/dL (0.2-1.0); CALCIUM 9.7 mg/dL (8.5-10.3); CREATININE 0.7 mg/dL (0.4-1.0); POTASSIUM 3.5 mmol/L (3.5-5.0); TOTAL PROTEIN 6.8 g/dL (6.7-8.2)
== END 2020-09-14 23:59 | disposition home or self-care (01) ==
LOC: LAB.WCP 08:00
PROVIDERS: ATTEND Nurse Practitioner Family
DX: E86.0 Dehydration (principal)
CPT/HCPCS: 36415; 80053

== ENCOUNTER 2020-09-22 08:00 | Outpatient (CLI) | payer MEDICARE, OTHER ==
[2020-09-22 18:39] LABS: BASOPHILS % (AUTO) 0.2 %; EOSINOPHILS # (AUTO) 0.2 10^3/uL (0.0-0.7); EOSINOPHILS % (AUTO) 1.8 %; HCT - HEMATOCRIT 40.2 % (37.0-47.0); HGB - HEMOGLOBIN 12.4 g/dL (12.0-16.0); LYMPHOCYTES # (AUTO) 0.7 10^3/uL (1.5-3.5); MEAN CORPUSCULAR HEMOGLOBIN 28.8 pg (27.0-31.0); MEAN CORPUSCULAR HGB CONC 30.8 g/dL (32.0-36.0); MEAN CORPUSCULAR VOLUME 93.3 fL (81.0-99.0); MEAN PLATELET VOLUME 11.8 fL (7.9-10.8); MONOCYTES # (AUTO) 0.9 10^3/uL (0.0-1.0); MONOCYTES % (AUTO) 8.2 %; NEUTROPHILS # (AUTO) 9.3 10^3/uL (1.5-6.6); NEUTROPHILS % (AUTO) 83.4 %; PLT - PLATELET COUNT 375 10^3/uL (130-450); RED BLOOD COUNT 4.31 10^6/uL (4.20-5.40); RED CELL DISTRIBUTION WIDTH 15.9 % (12.0-15.0); WHITE BLOOD COUNT 11.2 x10^3/uL (4.8-10.8)
[2020-09-22 18:50] LABS: ALBUMIN 4.1 g/dL (3.2-5.5); ALBUMIN/GLOBULIN RATIO 1.2 (1.0-2.2); ALKALINE PHOSPHATASE 68 IU/L (42-121); ALT ALANINE AMINOTRANSFERASE < 10 IU/L (10-60); AST ASPARTATE AMINOTRANSFERASE 19 IU/L (10-42); BILIRUBIN,TOTAL 0.4 mg/dL (0.2-1.0); BUN - BLOOD UREA NITROGEN 15 mg/dL (6-20); CALCIUM 10.3 mg/dL (8.5-10.3); CARBON DIOXIDE - CO2 26 mmol/L (21-32); CHLORIDE 101 mmol/L (101-111); CREATININE 0.7 mg/dL (0.4-1.0); GFR - MDRD 80 (>89); GLUCOSE 102 mg/dL (70-100); POTASSIUM 3.7 mmol/L (3.5-5.0); SODIUM 138 mmol/L (135-145); TOTAL PROTEIN 7.6 g/dL (6.7-8.2)
== END 2020-09-22 23:59 | disposition home or self-care (01) ==
LOC: LAB.WCP 08:00
PROVIDERS: ATTEND Physician Assistant Medical
DX: I10 Essential (primary) hypertension (principal); Z78.9 Other specified health status
CPT/HCPCS: 36415; 80053; 85025

== ENCOUNTER 2020-11-15 17:07 | Outpatient (CLI) | payer MEDICARE, OTHER | END 2020-11-15 17:08 | disposition E | LOC: EMS 17:07 ==